=== PATIENT | female | born 1955 | race Caucasian/White ===

== ENCOUNTER 2024-08-24 21:35 | Inpatient (IN) | payer MEDICARE, OTHER, SELFPAY ==
[2024-08-24] VITALS (8 sets, daily range): BP systolic 107–187; BP diastolic 54–86; BMI 24.6
--- NOTE | 2024-08-24 14:44 | ED.GENMED ---
ED Provider Triage
<Chantel Phipps BULK [employer] HANDLER - Last Filed: 08/24/24 14:49>
-
Patient seen by provider in Triage?: Seen in Triage
Attestation: A medical screening examination has been initiated by a qualified medical provider. Based on the assessment performed at this time, it has been determined that an emergent medical condition may exist and the patient has been informed
that further medical evaluation and possible additional diagnostic testing may be needed.
HPI: 69 yo female with COPD on home O2 3L NC. presents for trouble breathing. 'I feel like I have a 60 lb dog sitting on me, I have pressure all around my rib area where my lungs are.' Denies chest pain. Has had similar exacerbations in the past.
Denies fever/chills. Denies n/v/c. Has chronic diarrhea
Finished [employer] 4 days ago. Takes 10 mg Prednisone daily. Has been taking nebulizations at home.
GENERAL: Alert , in no apparent distress
EYE: No visual abnormalities.
NECK: Trachea midline
ENT: No visible abnormalities.
LUNGS: No acute respiratory distress
NEUROLOGICAL: Alert and oriented
SKIN: Skin intact. No visible changes.
MUSCULOSKELETAL: Moving extremities normally
PSYCH: Normal and appropriate interaction.
This is a medical evaluation conducted in person to initiate diagnostic evaluation and provide initial therapeutics. Please see further documentation by the treating clinician.
History of Present Illness
<Chantel Phipps B[employer] HANDLER - Last Filed: 08/24/24 14:49>
General
Chief Complaint: Breathing Problem
Time Seen by Provider: 08/24/24 19:02
<Mathew Grewal DO - Last Filed: 08/24/24 22:06>
History of Present Illness
History of Present Illness:
TIME OF INITIAL ENCOUNTER: 7:05 PM
HPI: Patient has history of COPD who presents with shortness of breath. She uses home oxygen at 2 to 3 L/min. She was seen by Dr. Pulliam and had already tried a steroid taper. She has a tight band around her chest indicating that she feels that
this is her COPD acting up. She feels that she needs to be admitted to the hospital�she has not been admitted in nearly 3 years. She continues to drink alcohol on a daily basis and drinks alcohol to help her relax and sleep
EXAM:
GENERAL: Patient no significant distress
HEENT: Moist oral mucosa, nasal cannula in place
CARDIOVASCULAR: No murmurs, tachycardic heart rate, regular rhythm, No chest wall tenderness
PULMONARY: Minimal if any respiratory distress, breath sounds are markedly decreased bilaterally with wheeze
ABDOMEN: Soft with no peritoneal signs, no tenderness
NEUROLOGIC: Excellent strength all extremities, no coordination deficits
PSYCHIATRIC: Appropriate mental status, normal insight and judgement
EXTREMITIES: Nontender, no edema, moves all extremities equally
SKIN: No rash, no lesions
NUMBER AND COMPLEXITY OF PROBLEMS ADDRESSED AT THE ENCOUNTER
� Chronic conditions affecting care: COPD, alcohol use, had TAVR March 2020
� Acute Exacerbation and/or Progression of Chronic Illness: This is an acute problem exacerbation of a chronic
� Differential Diagnosis includes: COPD exacerbation, alcohol withdrawal, CHF unlikely as there is no lower extremity edema
AMOUNT AND/OR COMPLEXITY OF DATA TO BE REVIEWED AND ANALYZED
� I performed an independent evaluation of and my interpretation is:
EKG: Sinus 116, normal axis, old septal Q waves
CT:
X-rays: I personally viewed chest x-ray and see no definite acute abnormality however radiologist did comment on the possibility of a small perihilar infiltrate
Laboratory Studies: CBC unremarkable, bicarb is 38 otherwise chemistries relatively unremarkable, troponin 0.013
Other:
� Review of other/old records: I reviewed records, the patient was admitted here with a COPD exacerbation in September 2021
� Clinical information was obtained by an independent historian: None needed
� Prescriptions/Medications Considered but not given:
� Further testing considered but not performed:
RISK OF COMPLICATIONS AND/OR MORBIDITY OR MORTALITY OF PATIENT MANAGEMENT
� Social determinants of health affecting care: Lives at home
� Discussion with other providers: Dr. West for admission at 7:55 PM
� Escalation of care including admission/observation vs risk of discharge considered: Although patient sats are normal and she does not appear to be in any respiratory distress, she states that she is failing outpatient
management already with trying oral steroids and feels she needs to be kept in the hospital. She has not been admitted here nearly 2 years for COPD. I have ordered DuoNebs and IV steroids.
ANY OTHER UPDATES:
7:55 PM: Repeat heart rate 130. She states that she did not drink any alcohol today�heart rate elevation likely due to a combination of anxiety, alcohol withdrawal, albuterol use, and steroid effects. However she declines any anxiolytics/benzos.
Past History
<Chantel Phipps, B[employer] HANDLER - Last Filed: 08/24/24 14:49>
Past History
ED Past Medical History: COPD; Negative HTN, Hypercholesterolemia or NIDDM
ED Past Surgical History: None
Social History
Tobacco: Smoker
Alcohol: Daily (2-3 glasses of wine)
Drug: None
Personal:
Living: with family
Phy Exam
<Mathew Grewal DO - Last Filed: 08/24/24 22:06>
Physical Exam
Physical Exam:
See HPI
Scores
<Mathew Grewal DO - Last Filed: 08/24/24 22:06>
Heart Failure Risk
Heart Failure Risk Score: Not Applicable
Course
<Chantel Phipps, B[employer] HANDLER - Last Filed: 08/24/24 14:49>
Orders/Labs/Results
Orders:
Orders
08/24/24 14:32
ECG [Electrocardiogram (*1)] Urgent
Reason for Study: Chest Pain
EKG- Treatment ONCE
08/24/24 14:44
CXR2 [CR Chest - 2 Views ] Urgent
Comment:
Reason For Exam: sob hx copd
08/24/24 14:58
Complete Blood Count/With Diff Urgent
Comprehensive Metabolic Panel Urgent
NT-proBNP Urgent
Comment: ADDON
Troponin I Urgent
08/24/24 19:05
Add On- LAB Urgent
Tests Added?: bnp
08/24/24 19:10
Ipratropium/Albuterol Sulfate [Duoneb] 3 ml INH R NOW STA
08/24/24 19:13
Ipratropium/Albuterol Sulfate [Duoneb] 3 ml INH R NOW STA
MethylPREDNISolone PF [Solu-Medrol Pf] 125 mg IV NOW STA
08/24/24 20:56
Magnesium Sulfate 2 Gram/50 ml [Magnesium Sulfate] 2 gram in 50 ml IV NOW
08/24/24 20:57
Admit/Transfer Patient As Directed
Co-Sign Provider:
Level of Care: Inpatient admission
Assign to:: Medical/Surgical
Physician / Group: Hospitalist
Diagnosis: COPD exacerbation
Reason for Hospitalization: copd exacerbation
Expected length of stay greater than two midnights?: Yes
ELOS- Estimated Length of Stay in days: 2
I certify the patient meets the requirements for IP care: Yes
PRN Pain Medication Management As Directed
May give lesser potent ordered pain med per pt: Yes
preference::
Protocol:: Medication orders for pain may be administered in a
manner that supports deferring to patient preference
when the pt is:
- Requesting an ordered lesser potent pain medication.
Least to most potent pain medications are defined
as: acetaminophen < NSAID < tramadol < opioids
(morphine, oxycodone, hydromorphone).
- Requesting a lesser dose of the same medication IF
ORDERED.
- Requesting a less intrusive route of administration
if both routes are prescribed by the provider (PO <
IV).
08/24/24 20:58
Code Status As Directed
Resuscitation Status: Full Code
08/24/24 21:00
Flush (0.9% Sodium Chloride) [Flush (Nss)] See Dose Instructions IV PER PROTOCOL
08/24/24 21:01
COVID-19 Antigen Stat
Source: Nasal Swab
Abnormal Lab Results
08/24/24
14:58
RBC 4.17 L 10^6/uL
(4.20-5.40)
MCHC 31.1 L g/dL
(33.0-37.0)
RDW 14.8 H %
(11.5-14.5)
Abs Immat Gran (auto) 0.1 H 10^3/uL
(0-0.05)
Absolute Neuts (auto) 8.3 H 10^3/uL
(1.4-6.5)
Absolute Lymphs (auto) 0.7 L 10^3/uL
(1.2-3.4)
Neutrophils % 87.5 H %
(42.2-75.2)
Lymphocytes % 7.4 L %
(20.5-51.1)
Chloride 95 L mmol/L
(98-107)
Carbon Dioxide 38 H mmol/L
(22-30)
Creatinine 0.5 L mg/dL
(0.6-1.0)
Glucose 135 H mg/dl
(70-99)
08/24/24 14:58
08/24/24 14:58
Vital Signs
Initial and Last Documented VS:
Initial Vital Signs
Temp Pulse Resp BP Pulse Ox
36.7 C 116 18 150/86 92
08/24/24 14:39 08/24/24 14:39 08/24/24 14:39 08/24/24 14:39 08/24/24 14:39
Last Documented Vital Signs
Temp Pulse Resp BP Pulse Ox
36.7 C 103 24 150/71 100
08/24/24 14:39 08/24/24 21:15 08/24/24 21:15 08/24/24 21:00 08/24/24 21:15
<Mathew Grewal, DO - Last Filed: 08/24/24 22:06>
Orders/Labs/Results
Orders:
Orders
08/24/24 14:32
ECG [Electrocardiogram (*1)] Urgent
Reason for Study: Chest Pain
EKG- Treatment ONCE
08/24/24 14:44
CXR2 [CR Chest - 2 Views ] Urgent
Comment:
Reason For Exam: sob hx copd
08/24/24 14:58
Complete Blood Count/With Diff Urgent
Comprehensive Metabolic Panel Urgent
NT-proBNP Urgent
Comment: ADDON
Troponin I Urgent
08/24/24 19:05
Add On- LAB Urgent
Tests Added?: bnp
08/24/24 19:10
Ipratropium/Albuterol Sulfate [Duoneb] 3 ml INH R NOW STA
08/24/24 19:13
Ipratropium/Albuterol Sulfate [Duoneb] 3 ml INH R NOW STA
MethylPREDNISolone PF [Solu-Medrol Pf] 125 mg IV NOW STA
08/24/24 20:56
Magnesium Sulfate 2 Gram/50 ml [Magnesium Sulfate] 2 gram in 50 ml IV NOW
08/24/24 20:57
Admit/Transfer Patient As Directed
Co-Sign Provider:
Level of Care: Inpatient admission
Assign to:: Medical/Surgical
Physician / Group: Hospitalist
Diagnosis: COPD exacerbation
Reason for Hospitalization: copd exacerbation
Expected length of stay greater than two midnights?: Yes
ELOS- Estimated Length of Stay in days: 2
I certify the patient meets the requirements for IP care: Yes
PRN Pain Medication Management As Directed
May give lesser potent ordered pain med per pt: Yes
preference::
Protocol:: Medication orders for pain may be administered in a
manner that supports deferring to patient preference
when the pt is:
- Requesting an ordered lesser potent pain medication.
Least to most potent pain medications are defined
as: acetaminophen < NSAID < tramadol < opioids
(morphine, oxycodone, hydromorphone).
- Requesting a lesser dose of the same medication IF
ORDERED.
- Requesting a less intrusive route of administration
if both routes are prescribed by the provider (PO <
IV).
08/24/24 20:58
Code Status As Directed
Resuscitation Status: Full Code
08/24/24 21:00
Flush (0.9% Sodium Chloride) [Flush (Nss)] See Dose Instructions IV PER PROTOCOL
08/24/24 21:01
COVID-19 Antigen Stat
Source: Nasal Swab
Abnormal Lab Results
08/24/24
14:58
RBC 4.17 L 10^6/uL
(4.20-5.40)
MCHC 31.1 L g/dL
(33.0-37.0)
RDW 14.8 H %
(11.5-14.5)
Abs Immat Gran (auto) 0.1 H 10^3/uL
(0-0.05)
Absolute Neuts (auto) 8.3 H 10^3/uL
(1.4-6.5)
Absolute Lymphs (auto) 0.7 L 10^3/uL
(1.2-3.4)
Neutrophils % 87.5 H %
(42.2-75.2)
Lymphocytes % 7.4 L %
(20.5-51.1)
Chloride 95 L mmol/L
(98-107)
Carbon Dioxide 38 H mmol/L
(22-30)
Creatinine 0.5 L mg/dL
(0.6-1.0)
Glucose 135 H mg/dl
(70-99)
08/24/24 14:58
08/24/24 14:58
Vital Signs
Initial and Last Documented VS:
Initial Vital Signs
Temp Pulse Resp BP Pulse Ox
36.7 C 116 18 150/86 92
08/24/24 14:39 08/24/24 14:39 08/24/24 14:39 08/24/24 14:39 08/24/24 14:39
Last Documented Vital Signs
Temp Pulse Resp BP Pulse Ox
36.7 C 103 24 150/71 100
08/24/24 14:39 08/24/24 21:15 08/24/24 21:15 08/24/24 21:00 08/24/24 21:15
<Mathew Grewal DO - Last Filed: 08/24/24 22:06>
*Critical Care Note
Total Time (30-74mins, 75-104mins- exclusive of procedures): Not Applicable
ED Attending Note
<Chantel Phipps [employer] HAND[employer]ER - Last Filed: 08/24/24 14:49>
-
Portions of this chart may have been created with voice recognition software.� Occasional wrong word or��sound alike� substitutions may have occurred due to the inherent limitations of voice recognition software.
Discharge Plan
Departure
Patient Disposition: Admit
Date of Disposition: 08/24/24
Time of Disposition: 19:54
Presentation/result/management discussed w/ accepting MD/DO: Hospitalist
Discharge Problem:
COPD exacerbation
Interventions
Interventions:
*Risk Screen - Suicide Last Done: 08/24/24 14:39
*General Assessment Last Done: 08/24/24 20:17
*Neglect/Abuse Screening Last Done: 08/24/24 14:39
ED- Fall Risk Assessment Last Done: 08/24/24 21:56
*ED COVID-19 Vaccine History Last Done: 08/24/24 20:17
*Nursing Disposition Last Done: 08/24/24 21:56
ED- Cardiac Assessment Last Done: 08/24/24 18:08
ED- Pulmonary Assessment Last Done: 08/24/24 18:08
Discharge Date and Time
Discharge Date/Time: 08/24/24 21:57
[2024-08-24 15:25] LABS: % Basophils 0.3 % (0-2); % Eosinophils 0.2 % (0-6); % Immature Granulocytes 0.5 % (0-0.5); % Lymphocytes 7.4 % (20.5-51.1); % Monocytes 4.1 % (1.7-9.3); % Neutrophils 87.5 % (42.2-75.2); Absolute Immature Granulocytes 0.1 10^3/uL (0-0.05); Absolute Lymphocytes 0.7 10^3/uL (1.2-3.4); Absolute Monocytes 0.4 10^3/uL (0.1-0.6); Absolute Neutrophils 8.3 10^3/uL (1.4-6.5); Hematocrit 38.6 % (37.0-47.0); Mean Corp Hgb Conc. 31.1 g/dL (33.0-37.0); Mean Corpuscular Hgb 28.8 pg (27.0-31.0); Mean Corpuscular Volume 92.6 fL (81.0-99.0); Mean Platelet Volume 8.6 fL (7.4-10.4); Nucleated Red Blood Cells % 0 %; Platelet Count 262 10^3/uL (130-400); Red Blood Cell Count 4.17 10^6/uL (4.20-5.40); Red Cell Dist. Width 14.8 % (11.5-14.5); White Blood Cell Count 9.5 10^3/uL (4.8-10.8)
[2024-08-24 15:36] LABS: ALT (SGPT) 25 U/L (0-35); AST (SGOT) 31 U/L (14-36); Albumin 4.6 g/dl (3.5-5.0); Alkaline Phosphatase 63 U/L (38-126); Blood Urea Nitrogen 14 mg/dl (7-17); Calcium 9.1 mg/dl (8.4-10.2); Carbon Dioxide 38 mmol/L (22-30); Chloride 95 mmol/L (98-107); Glucose 135 mg/dl (70-99); Potassium 4.3 mmol/L (3.5-5.1); Sodium 142 mmol/L (135-145); Total Bilirubin 0.6 mg/dl (0.2-1.3); Total Protein 7.3 g/dl (6.3-8.2); eGFR > 60.00
[2024-08-24 15:47] LABS: Troponin I 0.013 ng/ml
[2024-08-24] MEDS: DUONEB 3 ML INH ×2 (19:19)
[2024-08-24] MEDS: SOLU-MEDROL PF 125 MG IV (19:19)
[2024-08-24 19:45] LABS: NT-proBNP 349 pg/ml
--- NOTE | 2024-08-24 20:39 | HPS.HSE ---
Family Physician
-
Family Physician: NOT KNOW UNKNOWN - PT DOES
Chief Complaint
-
Shortness of breath
History of Present Illness
This is a 69-year-old female with past medical history of COPD on 2 to 3 L home O2, asthma, aortic stenosis status post TAVR, alcohol abuse, presenting to the emergency department with unrelenting shortness of breath after outpatient treatment for
COPD.
Patient reported that she started steroid taper initially 2 weeks ago for COPD exacerbation. She initially improved but then got worse again. She did a second steroid taper this time with [employer]. After completing the [employer] patient said she felt
better but then within a day or 2 she started having shortness of breath again. She is that she described chest tightening in a bandlike manner, dyspnea on exertion, wheezing and shortness of breath at rest. She denies any chest pain. She denies
any palpitations lightheadedness or dizziness. She denies any lower extremity swelling. She reports compliance with her medications. She has no known sick contacts and no recent travels.
In the ED she was satting 100% on 2 L, blood pressure 155/85 heart rate 116. She had no leukocytosis with normal hemoglobin and platelet counts. BUN and creatinine were within normal limits bicarb was 38 electrolytes otherwise normal. Chest x-ray
was clear. ECG shows sinus tachycardia at rate of [address] or T wave changes. Troponin was negative. BNP was within normal limits.
Medical History
Past Medical History
Past Medical History: Reports Asthma, COPD (2 - 3 L O2) and Valvular Disease (As S/p TAVR)
Past Surgical History: Reports Cardiac (TAVR)
Social History
Tobacco: Former Smoker
Alcohol: Daily
Drug: None
Personal:
Living: With Family
Employment: Retired
Family History
Family History: Not pertinent
Allergies / Home Medications
Allergies reflects when Allergies were last updated in [facility]
Home Medications with original date entered in [facility]
Allergy/Medication List:
Allergies
Allergy/AdvReac Type Severity Reaction Status Date / Time
doxylamine Allergy Shortness Verified 08/24/24 14:43
of Breath
Penicillins Allergy Anaphylaxis Verified 08/24/24 14:43
Home Medications
fluticasone furoate 200 mcg-vilanterol 25 mcg/dose inhalation powder (Breo Ellipta) 1 puff inhalation R DAILY Lung/breathing issues 10/02/21
albuterol sulfate 90 mcg/actuation aerosol inhaler 2 puff inhalation R Q6HPRN PRN sob/wheezing 08/24/24
cetirizine 10 mg tablet (Zyrtec) 10 mg PO DAILY 08/24/24
ipratropium 0.5 mg-albuterol 3 mg (2.5 mg base)/3 mL nebulization soln 3 ml inhalation R BID 08/24/24
prednisone 10 mg tablet 10 mg PO DAILY 08/24/24
Review of Systems
-
History Source: Patient
Constitutional: Reports No Symptoms
EENT: Reports No Symptoms
Respiratory: Reports Trouble Breathing
Cardiac: Reports No Symptoms
Abdomen/GI: Reports No Symptoms
: Reports No Symptoms
Musculoskeletal: Reports No Symptoms
Skin: Reports No Symptoms
Neurological: Reports No Symptoms
Endocrine: Reports No Symptoms
Psych: Reports No Symptoms
Physical Exam
Vital Signs
Vital Signs
Temp Pulse Resp BP Pulse Ox
98.0 F 116 18 155/85 100
08/24/24 14:39 08/24/24 20:15 08/24/24 20:15 08/24/24 20:00 08/24/24 20:15
Physical Exam
General: Well Developed, Well Nourished and Respiratory Distress
HEENT: NormoCephalic, Anicteric, Moist mucous membranes and Atraumatic
Respiratory: Wheezes
Cardiac: S1/S2, Regular Rhythm and Tachycardia
Breast: Deferred by me
GI: Soft, Non Tender, Non Distended and Normal Bowel Sounds
Rectal: Deferred by Provider
Genito-urinary: Deferred by me
Musculoskeletal: No Clubbing, No Cyanosis and No Edema
Skin: Warm
Neuro: AO x 3
Hematologic/Lymphatic: No Lymphadenopathy
Psych: Calm
Laboratory Results
-
08/24/24 14:58
08/24/24 14:58
Laboratory Results
Total Bilirubin 0.6 mg/dl (0.2-1.3) 08/24/24 14:58
AST 31 U/L (14-36) 08/24/24 14:58
ALT 25 U/L (0-35) 08/24/24 14:58
Alkaline Phosphatase 63 U/L (38-126) 08/24/24 14:58
Troponin I 0.013 ng/ml 08/24/24 14:58
Data Reviewed
-
Diagnostic Radiology: Image Personally Visualized and interpreted
Medical Tests (Nuc Med, Echo, EKG etc): Image Personally Visualized and interpreted
Lab Data: Labs Reviewed by me
Old Records: Reviewed
Impression/Plan
-
IMPRESSION:
Patient with history of asthma and COPD on 2 to 3 L with significant emphysema who is dependent on chronic 10 mg of prednisone at home comes into the emergency department with ongoing wheezing and shortness of breath consistent with asthma/COPD
exacerbation. She is satting 100% on 2 L at rest. She however has significant bilateral coarse wheezes. She has no new cough or production of sputum. Chest x-ray is clear. ECG with sinus tachycardia but no ischemia and BNP is normal and she has
no signs of volume overload on x-ray or exam.
PLAN:
1. COPD - Patient with possible asthma/ COPD exacerbation. Has emphysema, on 2 L home O2 and has retention on serum chemistry. She still remains tight and wheezing on my examination.
- admit to med/surg
- magsulftate now
- duonebs BID with prn albuterol q 3 hours
- continue ICS/LABA
- iv solumedrol 40 q 12
- check covid 19
- no productive cough, hold abx for now
- consider pulm consult (patient of Dr. Benítez)
DVT PPX - lovenox sq
Code status - Full code.
[2024-08-24] MEDS: MAGNESIUM SULFATE 50 IV (21:03)
[2024-08-24 21:20] LABS: COVID-19 Antigen Negative (Negative)
--- NOTE | 2024-08-24 22:15 | PTCARENOTE ---
Pt arrived onto floor @2215. Pt AAOx3 and able to walk into room with minimal assistance. Pt with no complaints of pain at this time. Pt oriented to room and call abreu; will continue to monitor.
[2024-08-25 07:00] VITALS: BP 121/76
[2024-08-25 07:31] LABS: Blood Urea Nitrogen 11 mg/dl (7-17); Calcium 8.7 mg/dl (8.4-10.2); Carbon Dioxide 33 mmol/L (22-30); Chloride 96 mmol/L (98-107); Estimated Creatinine Clearance 66 ml/min; Glucose 162 mg/dl (70-99); Potassium 4.8 mmol/L (3.5-5.1); Sodium 138 mmol/L (135-145); eGFR > 60.00
[2024-08-25] MEDS: ZYRTEC 10 MG PO (07:57)
[2024-08-25] MEDS: SOLU-MEDROL PF 40 MG IV ×2 (07:57→20:03)
[2024-08-25] MEDS: SYMBICORT 160/4.5 MCG INHALER 2 PUFF INH ×2 (08:20→20:28)
[2024-08-25] MEDS: VENTOLIN NEBULES 1.25 MG INH ×4 (08:20→20:28)
--- NOTE | 2024-08-25 13:36 | W.PN.HOSP.TC ---
Today's Communication/Plan
-
Cont IV steroids
PPI
Abd Aortic US
Assessment / Plan
Assessment / Plan
Physical Exam
General: Well Developed, Well Nourished and Respiratory Distress
HEENT: NormoCephalic, Anicteric, Moist mucous membranes and Atraumatic
Respiratory: minimal b/l wheezing
Cardiac: S1/S2, Regular Rhythm and Tachycardia
Breast: Deferred by me
GI: Soft, Non Tender, Non Distended and Normal Bowel Sounds
Rectal: Deferred by Provider
Genito-urinary: Deferred by me
Musculoskeletal: No Clubbing, No Cyanosis and No Edema
Skin: Warm
Neuro: AO x 3
Hematologic/Lymphatic: No Lymphadenopathy
Psych: Calm
Patient with history of asthma and COPD on 2 to 3 L with significant emphysema who is dependent on chronic 10 mg of prednisone at home comes into the emergency department with ongoing wheezing and shortness of breath consistent with asthma/COPD
exacerbation. She is satting 100% on 2 L at rest. She however has significant bilateral coarse wheezes. She has no new cough or production of sputum. Chest x-ray is clear. ECG with sinus tachycardia but no ischemia and BNP is normal and she has
no signs of volume overload on x-ray or exam.
PLAN:
1. COPD exacerbation.
- admit to med/surg
- duonebs BID with prn albuterol q 3 hours
- continue ICS/LABA
- Cont iv Solumedrol 40 q 12h
- covid 19 negative
- no productive cough, although ?infiltrate on CXR
-F/u Procalcitonin
- Empiric azithro
- If worsening: Pulm consult (patient of Dr. Benítez)
#Abd pain
-non distended
-Possible GERD
-start PPI while on steroids
-RUQ sono dopplers - eval for AAA
DVT PPX - lovenox sq
Code status - Full code.
Anticipated Discharge: 24 - 48 hours
Subjective/Interval History
-
Date of Service: August 25, 2024
Moderate improvement of wheezing/respiratory status
Objective Data
-
Labs:
Laboratory Results
08/25/24
05:46
Sodium 138
Potassium 4.8
Chloride 96 L
Carbon Dioxide 33 H
BUN 11
Creatinine 0.4 L
Glucose 162 H
Calcium 8.7
Vital Signs:
Vital Signs
Temp Pulse Resp BP Pulse Ox
98.0 F 101 18 121/76 96
08/25/24 07:00 08/25/24 11:41 08/25/24 11:41 08/25/24 07:00 08/25/24 11:41
Review of Systems
-
History Source: Patient
All other systems: Not reviewed unless documented
Data Reviewed
-
Diagnostic Radiology: Image personally visualized and interpreted and Report Reviewed by me
Labs: Labs Reviewed by me
[2024-08-25] MEDS: NSS (PRESERVATIVE FREE) 10 ML IV (14:24)
[2024-08-25] MEDS: PROTONIX IV 40 MG IV (14:25)
[2024-08-25] MEDS: ZITHROMAX INFUSION 250 IV (14:25)
[2024-08-25 14:36] LABS: % Basophils 0.1 % (0-2); % Immature Granulocytes 0.4 % (0-0.5); % Lymphocytes 2.3 % (20.5-51.1); % Monocytes 2.9 % (1.7-9.3); % Neutrophils 94.3 % (42.2-75.2); Absolute Lymphocytes 0.2 10^3/uL (1.2-3.4); Absolute Monocytes 0.3 10^3/uL (0.1-0.6); Absolute Neutrophils 8.8 10^3/uL (1.4-6.5); Hematocrit 36.8 % (37.0-47.0); Hemoglobin 11.5 g/dL (12.0-16.0); Mean Corp Hgb Conc. 31.3 g/dL (33.0-37.0); Mean Corpuscular Volume 92.7 fL (81.0-99.0); Mean Platelet Volume 8.6 fL (7.4-10.4); Nucleated Red Blood Cells % 0 %; Platelet Count 269 10^3/uL (130-400); Red Blood Cell Count 3.97 10^6/uL (4.20-5.40); Red Cell Dist. Width 14.6 % (11.5-14.5); White Blood Cell Count 9.3 10^3/uL (4.8-10.8)
[2024-08-25 14:51] LABS: AST (SGOT) 31 U/L (14-36); Albumin 4.5 g/dl (3.5-5.0); Alkaline Phosphatase 58 U/L (38-126); Blood Urea Nitrogen 17 mg/dl (7-17); Calcium 9.1 mg/dl (8.4-10.2); Carbon Dioxide 32 mmol/L (22-30); Chloride 94 mmol/L (98-107); Estimated Creatinine Clearance 49 ml/min; Glucose 315 mg/dl (70-99); Lipase 72 U/L (23-300); Potassium 4.6 mmol/L (3.5-5.1); Sodium 136 mmol/L (135-145); Total Bilirubin 0.3 mg/dl (0.2-1.3); Total Protein 6.9 g/dl (6.3-8.2); eGFR > 60.00
[2024-08-25 15:00] VITALS: BP 146/81
[2024-08-25 15:17] LABS: Procalcitonin < 0.05 ng/ml (0.0-0.25)
[2024-08-25 15:23] LABS: Urine Albumin Negative (Neg - Trace); Urine Bilirubin Negative (Negative); Urine Character Clear (Clear); Urine Color Straw; Urine Glucose 3+ (Negative); Urine Ketone Trace (Negative); Urine Leukocyte Negative (Negative); Urine Nitrite Negative (Negative); Urine Occult Blood 1+ (Negative); Urine Specific Gravity 1.015 (<1.030); Urine Urobilinogen Negative (Neg - 1+)
--- NOTE | 2024-08-25 15:24 | CM ---
Initial assessment completed with pt at bedside.
Pt is a 69yr old admitted with COPD exacerbation.
Pt lives with her in a split level home that has 5 steps to enter into the home where the living room and kitchen are, with 5 additional steps to the bed/bath, and laundry in the basement.
At baseline, pt is indep. with mobility and ADLs; not driving. Pt does have home O2 that she uses 2-3L and a RW that she does not use.
Pt has no VN/SNF hx
PCP; Trenton Lock
Pharm; [facility]
PLAN; dc to home with no needs
[2024-08-25 15:37] LABS: ALT (SGPT) 34 U/L (0-35)
[2024-08-25 15:42] VITALS: BMI 24.6
[2024-08-25 15:42] LABS: Urine Squamous Cell 0-2 /LPF (Few)
[2024-08-25 15:43] LABS: Urine Red Blood Cell 0-2 /HPF (0-2); Urine White Cell 0-2 /HPF (0-5)
[2024-08-25 19:55] VITALS: BP 146/81
[2024-08-25] MEDS: TYLENOL 650 MG PO (21:53)
[2024-08-25 23:30] VITALS: BP 133/59
[2024-08-26 06:54] LABS: Hematocrit 35.3 % (37.0-47.0); Hemoglobin 10.9 g/dL (12.0-16.0); Mean Corp Hgb Conc. 30.9 g/dL (33.0-37.0); Mean Corpuscular Hgb 29.1 pg (27.0-31.0); Mean Corpuscular Volume 94.1 fL (81.0-99.0); Mean Platelet Volume 8.6 fL (7.4-10.4); Platelet Count 244 10^3/uL (130-400); Red Blood Cell Count 3.75 10^6/uL (4.20-5.40); Red Cell Dist. Width 14.6 % (11.5-14.5); White Blood Cell Count 12.4 10^3/uL (4.8-10.8)
[2024-08-26 07:09] LABS: Blood Urea Nitrogen 18 mg/dl (7-17); Carbon Dioxide 35 mmol/L (22-30); Chloride 97 mmol/L (98-107); Estimated Creatinine Clearance 66 ml/min; Glucose 150 mg/dl (70-99); Potassium 4.4 mmol/L (3.5-5.1); Sodium 137 mmol/L (135-145); eGFR > 60.00
[2024-08-26 07:35] VITALS: BP 155/87
[2024-08-26] MEDS: PROTONIX 40 MG PO (08:00)
[2024-08-26] MEDS: SOLU-MEDROL PF 40 MG IV ×2 (08:00→20:37)
[2024-08-26] MEDS: ZYRTEC 10 MG PO (08:02)
[2024-08-26] MEDS: SYMBICORT 160/4.5 MCG INHALER 2 PUFF INH ×2 (08:30→19:39)
[2024-08-26] MEDS: VENTOLIN NEBULES 1.25 MG INH ×4 (08:30→19:39)
[2024-08-26] MEDS: ZITHROMAX INFUSION 250 IV (14:07)
--- NOTE | 2024-08-26 14:30 | W.PN.HOSP.TC ---
Today's Communication/Plan
-
Cont IV steroids
PPI
Abd Aortic US
Assessment / Plan
Assessment / Plan
Physical Exam
General: Well Developed, Well Nourished and Respiratory Distress
HEENT: NormoCephalic, Anicteric, Moist mucous membranes and Atraumatic
Respiratory: minimal b/l wheezing
Cardiac: S1/S2, Regular Rhythm and Tachycardia
Breast: Deferred by me
GI: Soft, Non Tender, Non Distended and Normal Bowel Sounds
Rectal: Deferred by Provider
Genito-urinary: Deferred by me
Musculoskeletal: No Clubbing, No Cyanosis and No Edema
Skin: Warm
Neuro: AO x 3
Hematologic/Lymphatic: No Lymphadenopathy
Psych: Calm
Patient with history of asthma and COPD on 2 to 3 L with significant emphysema who is dependent on chronic 10 mg of prednisone at home comes into the emergency department with ongoing wheezing and shortness of breath consistent with asthma/COPD
exacerbation. She is satting 100% on 2 L at rest. She however has significant bilateral coarse wheezes. She has no new cough or production of sputum. Chest x-ray is clear. ECG with sinus tachycardia but no ischemia and BNP is normal and she has
no signs of volume overload on x-ray or exam.
PLAN:
1. COPD exacerbation.
- admit to med/surg
- duonebs BID with prn albuterol q 3 hours
- continue ICS/LABA
- Cont iv Solumedrol 40 q 12h
- covid 19 negative
- no productive cough, although ?infiltrate on CXR
-F/u Procalcitonin
- Empiric azithro
- If worsening: Pulm consult (patient of Dr. Benítez)
#Abd pain
-non distended
-Possible GERD
-start PPI while on steroids
-RUQ sono dopplers - eval for AAA
DVT PPX - lovenox sq
Code status - Full code.
Anticipated Discharge: Within 24 hours
Subjective/Interval History
-
Date of Service: August 26, 2024
No acute events
Objective Data
-
Labs:
Laboratory Results
08/26/24
06:33
WBC 12.4 H
Hgb 10.9 L
Hct 35.3 L
Plt Count 244
Sodium 137
Potassium 4.4
Chloride 97 L
Carbon Dioxide 35 H
BUN 18 H
Creatinine 0.5 L
Glucose 150 H
Calcium 9.0
Vital Signs:
Vital Signs
Temp Pulse Resp BP Pulse Ox
97.9 F 88 18 155/87 98
08/26/24 07:35 08/26/24 12:07 08/26/24 12:07 08/26/24 07:35 08/26/24 12:07
Review of Systems
-
History Source: Patient
All other systems: Not reviewed unless documented
Data Reviewed
-
Diagnostic Radiology: Image personally visualized and interpreted and Report Reviewed by me
Labs: Labs Reviewed by me
[2024-08-26 16:50] VITALS: BP 139/71
[2024-08-27] VITALS: BP 150/76
[2024-08-27 07:19] LABS: Hematocrit 35.7 % (37.0-47.0); Hemoglobin 10.8 g/dL (12.0-16.0); Mean Corp Hgb Conc. 30.3 g/dL (33.0-37.0); Mean Corpuscular Hgb 28.8 pg (27.0-31.0); Mean Corpuscular Volume 95.2 fL (81.0-99.0); Mean Platelet Volume 8.6 fL (7.4-10.4); Platelet Count 245 10^3/uL (130-400); Red Blood Cell Count 3.75 10^6/uL (4.20-5.40); Red Cell Dist. Width 14.7 % (11.5-14.5); White Blood Cell Count 10.7 10^3/uL (4.8-10.8)
[2024-08-27 07:23] VITALS: BP 141/84
[2024-08-27] MEDS: VENTOLIN NEBULES 1.25 MG INH ×2 (07:23→11:33)
[2024-08-27] MEDS: SYMBICORT 160/4.5 MCG INHALER 2 PUFF INH (07:23)
[2024-08-27 07:52] LABS: Blood Urea Nitrogen 20 mg/dl (7-17); Calcium 8.8 mg/dl (8.4-10.2); Carbon Dioxide 37 mmol/L (22-30); Chloride 97 mmol/L (98-107); Estimated Creatinine Clearance 66 ml/min; Glucose 136 mg/dl (70-99); Potassium 4.4 mmol/L (3.5-5.1); Sodium 138 mmol/L (135-145); eGFR > 60.00
[2024-08-27] MEDS: PROTONIX 40 MG PO (09:21)
[2024-08-27] MEDS: ZYRTEC 10 MG PO (09:22)
[2024-08-27] MEDS: SOLU-MEDROL PF 40 MG IV (09:22)
--- NOTE | 2024-08-27 10:52 | W.PN.HOSP.TC ---
Addendum entered and electronically signed by Crow Soler DO 08/28/24 14:50:
Acute on chronic hypoxic respiratory failure -due to acute COPD exacerbation
Original Note:
Today's Communication/Plan
-
Follow-up abdominal ultrasound
Discharge
Assessment / Plan
Assessment / Plan
Physical Exam
General: Well Developed, Well Nourished and Respiratory Distress
HEENT: NormoCephalic, Anicteric, Moist mucous membranes and Atraumatic
Respiratory: minimal b/l wheezing
Cardiac: S1/S2, Regular Rhythm and Tachycardia
Breast: Deferred by me
GI: Soft, Non Tender, Non Distended and Normal Bowel Sounds
Rectal: Deferred by Provider
Genito-urinary: Deferred by me
Musculoskeletal: No Clubbing, No Cyanosis and No Edema
Skin: Warm
Neuro: AO x 3
Hematologic/Lymphatic: No Lymphadenopathy
Psych: Calm
Acute COPD exacerbation.
- admit to med/surg
- duonebs BID with prn albuterol q 3 hours
- continue ICS/LABA
- Cont iv Solumedrol 40 q 12h
- covid 19 negative
- no productive cough, although ?infiltrate on CXR
-F/u Procalcitonin
- Empiric azithro
- If worsening: Pulm consult (patient of Dr. Benítez)
#Abd pain -not true pain. Suspect tightness related to COPD exacerbation.
-non distended
-Possible GERD
-start PPI while on steroids
-RUQ sono dopplers - eval for AAA
DVT PPX - lovenox sq
Code status - Full code.
Dispo -medically stable for discharge with outpatient follow-up recommended with PCP and pulmonary. Patient agreeable to go home.
35 minutes spent in discharge process.
Anticipated Discharge: Today
Subjective/Interval History
-
Date of Service: August 27, 2024
Patient seen and examined. No new complaints.
Objective Data
-
Labs:
Laboratory Results
08/27/24
06:37
WBC 10.7
Hgb 10.8 L
Hct 35.7 L
Plt Count 245
Sodium 138
Potassium 4.4
Chloride 97 L
Carbon Dioxide 37 H
BUN 20 H
Creatinine 0.5 L
Glucose 136 H
Calcium 8.8
Vital Signs:
Vital Signs
Temp Pulse Resp BP Pulse Ox
98.3 F 87 18 141/84 97
08/27/24 07:23 08/27/24 08:10 08/27/24 08:10 08/27/24 07:23 08/27/24 08:10
I&O
08/26/24 08/27/24 08/28/24
06:59 06:59 06:59
Intake Total 970 / 970
Balance 970 / 970
Review of Systems
-
History Source: Patient
All other systems: Reviewed and negative
--- NOTE | 2024-08-27 10:56 | W.DS.TRANS ---
DC Summary - Travel Ticketing Reviewer
-
Discharge Instructions:
Discharge Diagnosis/Procedures COPD exacerbation
Diet Regular
Activity As tolerated
Driving Restrictions As prior to admission
Bathing Restrictions None
Instructions:
Stand-Alone Forms:
Changes to Home Medications: No
Discharge Medications:
DC Medications w/original date entered in [employer]
fluticasone furoate 200 mcg-vilanterol 25 mcg/dose inhalation powder (Breo Ellipta) 1 puff inhalation R DAILY Lung/breathing issues 10/02/21
cetirizine 10 mg tablet (Zyrtec) 10 mg PO DAILY 08/24/24
nicotine (polacrilex) 2 mg buccal lozenge 2 mg PRN cravings 08/26/24
albuterol sulfate 90 mcg/actuation aerosol inhaler 2 puff inhalation R Q6HPRN PRN sob/wheezing #8.5 grams 08/27/24
ipratropium 0.5 mg-albuterol 3 mg (2.5 mg base)/3 mL nebulization soln 3 ml inhalation R BID #90 mL 08/27/24
prednisone 10 mg tablet 10 mg PO DAILY #40 tabs 08/27/24
Home Medication Changes
Pending Results: No
[2024-08-27] MEDS: ZITHROMAX 500 MG PO (11:13)
--- NOTE | 2024-08-27 12:42 | CM ---
Chart reviewed and plan is to home no needs.
Plan; Home no needs when stable.
[2024-08-27 13:15] VITALS: BP 181/82
--- NOTE | 2024-08-28 10:53 | PN.CDI ---
CDI
- -
CDI:
Physician Documentation Request
Admit Date: 08/24/24 21:35
Dear Doctor Ryder,
Patient admitted for COPD exacerbation.
ER Physician Documentation: '69 yo female with COPD on home O2 3L NC'
Clarify which of the following accurately represents the patient's respiratory status:
Chronic hypoxic respiratory failure
Hypoxia
Other
Use of terms such as suspected, likely, concern for, or probable (associated with a specific diagnosis that is being evaluated, monitored, or treated as if it exists) are acceptable and can be coded in the inpatient setting, when documented at the
time of discharge.
Thank you,
Emilie Lamb RN, BSN
CDI Specialist
Available via [place] text
Please use your independent medical judgment in providing your response.
== END 2024-08-27 15:31 | disposition home or self-care (01) | DRG 190 ==
LOC: 4 WEST ACU 21:35
PROVIDERS: Emergency Medicine; Internal Medicine; ADMITTING PHYSICIAN Internal Medicine; ATTENDING PHYSICIAN Hospitalist; EMERGENCY PHYSICIAN Emergency Medicine
DX: J44.1 Chronic obstructive pulmonary disease with (acute) exacerbation (principal); J96.21 Acute and chronic respiratory failure with hypoxia; J45.901 Unspecified asthma with (acute) exacerbation; J43.9 Emphysema, unspecified; F17.200 Nicotine dependence, unspecified, uncomplicated; Z99.81 Dependence on supplemental oxygen; Z95.2 Presence of prosthetic heart valve; Z88.0 Allergy status to penicillin; Z79.51 Long term (current) use of inhaled steroids; Z79.52 Long term (current) use of systemic steroids; Z11.52 Encounter for screening for COVID-19
CPT/HCPCS: 71046; 76770; 80048; 80053; 81003; 81015; 83690; 83880; 84145; 84484; 85025; 85027; 87811; 93005; 94640; 96365; 96375; 99285

== ENCOUNTER 2024-09-14 22:13 | Inpatient (IN) | payer MEDICARE, OTHER, SELFPAY ==
[2024-09-14 16:02] VITALS: BP 158/71
[2024-09-14] MEDS: DUONEB 3 ML INH ×2 (16:13→21:48)
[2024-09-14 16:39] LABS: % Basophils 0.3 % (0-2); % Immature Granulocytes 0.3 % (0-0.5); % Lymphocytes 8.7 % (20.5-51.1); % Neutrophils 85.7 % (42.2-75.2); Absolute Lymphocytes 0.8 10^3/uL (1.2-3.4); Absolute Monocytes 0.5 10^3/uL (0.1-0.6); Absolute Neutrophils 7.7 10^3/uL (1.4-6.5); Hematocrit 36.1 % (37.0-47.0); Hemoglobin 11.4 g/dL (12.0-16.0); Mean Corp Hgb Conc. 31.6 g/dL (33.0-37.0); Mean Corpuscular Hgb 29.7 pg (27.0-31.0); Mean Platelet Volume 8.7 fL (7.4-10.4); Nucleated Red Blood Cells % 0 %; Platelet Count 288 10^3/uL (130-400); Red Blood Cell Count 3.84 10^6/uL (4.20-5.40); Red Cell Dist. Width 14.7 % (11.5-14.5)
[2024-09-14 16:55] LABS: ALT (SGPT) 42 U/L (0-35); AST (SGOT) 49 U/L (14-36); Albumin 4.2 g/dl (3.5-5.0); Alkaline Phosphatase 56 U/L (38-126); Blood Urea Nitrogen 13 mg/dl (7-17); Calcium 9.1 mg/dl (8.4-10.2); Chloride 88 mmol/L (98-107); Glucose 188 mg/dl (70-99); Sodium 136 mmol/L (135-145); Total Bilirubin 0.4 mg/dl (0.2-1.3); Total Protein 6.7 g/dl (6.3-8.2); eGFR > 60.00
[2024-09-14 17:07] LABS: Carbon Dioxide 39 mmol/L (22-30)
[2024-09-14 17:11] LABS: COVID-19 Antigen Negative (Negative)
[2024-09-14 20:15] VITALS: BP 123/71; BMI 25.7
[2024-09-14 21:00] VITALS: BP 163/82
--- NOTE | 2024-09-14 21:06 | ED.GENMED ---
History of Present Illness
General
Chief Complaint: Breathing Problem
Source: patient
Exam Limitations: none
Time Seen by Provider: 09/14/24 20:41
Nursing documentation reviewed up to this point in time: agreed with
History of Present Illness
History of Present Illness:
69-year-old female presents to the emergency department due to shortness of breath for the past 3 days, productive cough, subjective fever. She was recently hospitalized for COPD exacerbation.
Past History
Past History
ED Past Medical History: COPD; Negative HTN, Hypercholesterolemia or NIDDM
ED Past Surgical History: Cardiac (TAVR) and Gynecological (Tubal ligation, vaginal cyst)
Social History
Tobacco: Former smoker
Alcohol: Daily (2-3 glasses of wine)
Drug: None
Personal:
Living: with family
Review of Systems
Review of Systems
Allergies reviewed?: Yes
All Other Systems: Not applicable
Constitutional: Reports fever
EENT: Reports no symptoms
Respiratory: Reports cough and trouble breathing
Cardiac: Reports no symptoms
ABD/GI: Reports no symptoms
: Reports no symptoms
Musculoskeletal: Reports no symptoms
Skin: Reports no symptoms
Neurological: Reports no symptoms
Endocrine: Reports no symptoms
Hematologic/Lymphatic: Reports no symptoms
Psychiatric: Reports no symptoms
Phy Exam
Physical Exam
Physical Exam:
Physical Exam
General: Moderate respiratory distress, afebrile
Neck: supple. no meningeal signs. normal posterior pharynx
Heart: s1/s2 tachycardia, no murmur. equal radial
pulses.
HEENT: Pupils equal round reactive to light, EOMI
Lungs: Moderate respiratory distress. Decreased and wheezing bilaterally
Abdomen: normal bowel sounds. not tender. no CVAT
Neuro: alert and oriented. no focal neurological deficits cranial nerves II through XII intact
Skin: no rash
Psychiatric: well kept. interactive and cooperative
Extremities: no edema. no calf tenderness. negative homans. good distal pulses
Scores
Heart Failure Risk
Heart Failure Risk Score: Not Applicable
Course
Orders/Labs/Results
Orders:
Orders
09/14/24 16:04
ECG [Electrocardiogram (*1)] Urgent
Reason for Study: Shortness of Breath
CR Chest - 2 Views Urgent
Comment:
Reason For Exam: shortness of breath
09/14/24 16:05
EKG- Treatment ONCE
09/14/24 16:10
Ipratropium/Albuterol Sulfate [Duoneb] 3 ml .ROUTE .STK-MED ONE
09/14/24 16:12
Ipratropium/Albuterol Sulfate [Duoneb] 3 ml INH R NOW ONE
09/14/24 16:20
COVID-19 Antigen Urgent
Source: Nasal Swab
Complete Blood Count/With Diff Urgent
Comprehensive Metabolic Panel Urgent
Influenza A+B Rapid Molecular Urgent
ROB Source: Nasal Swab
Specimen Description:
09/14/24 21:00
Dexamethasone Sod Phosphate [Decadron] 10 mg IV NOW STA
Ipratropium/Albuterol Sulfate [Duoneb] 3 ml INH R NOW STA
09/14/24 21:05
Aztreonam [Azactam] 2,000 mg IV NOW STA
LevoFLOXacin 750 MG/150 ML [Levaquin] 750 mg in 150 ml IV NOW
Vancomycin [Vancocin] 1,500 mg 0.9% Sodium Chloride 500 ml [Nss] 500 ml IV NOW
Abnormal Lab Results
09/14/24
16:20
RBC 3.84 L 10^6/uL
(4.20-5.40)
Hgb 11.4 L g/dL
(12.0-16.0)
Hct 36.1 L %
(37.0-47.0)
MCHC 31.6 L g/dL
(33.0-37.0)
RDW 14.7 H %
(11.5-14.5)
Absolute Neuts (auto) 7.7 H 10^3/uL
(1.4-6.5)
Absolute Lymphs (auto) 0.8 L 10^3/uL
(1.2-3.4)
Neutrophils % 85.7 H %
(42.2-75.2)
Lymphocytes % 8.7 L %
(20.5-51.1)
Chloride 88 L mmol/L
(98-107)
Carbon Dioxide 39 H mmol/L
(22-30)
Creatinine 0.5 L mg/dL
(0.6-1.0)
Glucose 188 H mg/dl
(70-99)
AST 49 H U/L
(14-36)
ALT 42 H U/L
(0-35)
09/14/24 16:20
09/14/24 16:20
Vital Signs
Initial and Last Documented VS:
Initial Vital Signs
Temp Pulse Resp BP Pulse Ox
98.0 F 123 20 158/71 94
09/14/24 16:02 09/14/24 16:02 09/14/24 16:02 09/14/24 16:02 09/14/24 16:02
Last Documented Vital Signs
Temp Pulse Resp BP Pulse Ox
98.2 F 100 26 123/71 99
09/14/24 20:15 09/14/24 20:15 09/14/24 20:15 09/14/24 20:15 09/14/24 20:15
MDM/Problems Addressed
Differential Diagnosis Includes:
Pneumonia, COPD exacerbation
MDM/Problems Addressed:
69-year-old female with pneumonia and COPD exacerbation. Admit to hospitalist. IV Decadron, Azactam, Levaquin, vancomycin, DuoNeb ordered. Admit to hospitalist.
Chronic conditions affecting care: COPD
Acute Exacerbation and/or Progression of Chronic Illness: COPD
*Radiology
Radiology exam reviewed: radiology read reviewed (Chest x-ray shows bilateral pneumonia)
*Pulse Oximetry
Patient hypoxic: no
*EKG
Interpreted by ED Provider?: Yes
EKG Intrepretation Date: 09/14/24
EKG Intrepretation Time: 16:32
Interpretation: abnormal
Comparison EKG: no changes
Heart Rate: 121
Rate: tachycardiac
Rhythm: sinus tachycardia
[place]: normal axis
Interval: normal interval
QRS Pattern: normal QRS
Ischemia: no ischemia
*Burr Filer Interpretation
Rate: tachycardiac
Interpretation: abnormal
Heart Rate: 120
Rhythm: sinus tachycardia
*Critical Care Note
Total Time (30-74mins, 75-104mins- exclusive of procedures): Not Applicable
Data Reviewed
Review of Other/Old Records Reveals: Discharge Summary (recent hospitalization for copd, d/c 08/27/24)
Source: records
Further Testing Considered But Not Given:
ct chest not indicated
Patient Management
Social determinants of health affecting care: Living situation and Strong social support
Discussion with other providers: Hospitalist
Escalation/DeEscalation of care consider admission/obs:
admit indicated
ED Attending Note
-
Portions of this chart may have been created with voice recognition software.� Occasional wrong word or��sound alike� substitutions may have occurred due to the inherent limitations of voice recognition software.
Discharge Plan
Departure
Patient Disposition: Admit
Date of Disposition: 09/14/24
Time of Disposition: 21:13
Admit to: Telemetry
Presentation/result/management discussed w/ accepting MD/DO: Hospitalist
Patient with high blood pressure during this ER visit?: Yes
Condition: Fair
Discharge Problem:
COPD exacerbation, Pneumonia
Prescriptions:
No Action
fluticasone furoate-vilanterol [Breo Ellipta] 1 EACH blister with device
1 puff inhalation R DAILY
cetirizine [Zyrtec] 10 mg Tablet
10 mg PO DAILY
nicotine (polacrilex) 2 mg Lozenge
2 mg PRN (Reason: cravings)
prednisone 10 MG tablet
10 mg PO DAILY Qty: 40 0RF
Rx Instructions:
4 tabs daily x4 days, 3 tabs daily x4 days, 2 tabs daily x4 days, 1 tab daily x4 days.
ipratropium-albuterol 0.5 mg-3 mg(2.5 mg base)/3 mL Solution For Nebulization
3 ml INHALATION R BID Qty: 90 0RF
albuterol sulfate 90 mcg/actuation Hfa Aerosol Inhaler
2 puff INHALATION R Q6HPRN PRN (Reason: sob/wheezing) Qty: 8.5 0RF
Referrals:
Trenton Lock DO [Family Provider] -
Interventions
Interventions:
*Risk Screen - Suicide Last Done: 09/14/24 16:02
*General Assessment Last Done: 09/14/24 20:17
*Neglect/Abuse Screening Last Done: 09/14/24 20:17
*ED COVID-19 Vaccine History Last Done: 09/14/24 20:17
ED- Cardiac Assessment Last Done: 09/14/24 20:19
ED- Pulmonary Assessment Last Done: 09/14/24 20:19
Discharge Date and Time
Print Language: GREEK
--- NOTE | 2024-09-14 21:17 | HPS.HSE ---
Addendum entered and electronically signed by Mahesh Simental DO 09/14/24 22:54:
Patient seen and examined independently. Agree with findings and plan as set forth by RADHA Leong.
Patient is a 69y F with PMH significant for COPD and recent admission for the same who presents to ED complaining of cough and shortness of breath x 3 days. Patient was recently hospitalized from 08/24 - 08/27 for COPD exacerbation. She was
discharged on a prednisone taper which she completed one week ago. Patient states that she felt very well at discharge and until 09/12 when her symptoms returned. Patient has had progressive symptoms and presented to Urgent Care today and was
referred to the ED for evaluation.
Ass:
COPD with Acute Exacerbation
Bronchitis / Atypical Pneumonia
Sepsis secondary to the above
Aortic Stenosis s/p TAVR
Plan:
Admit for further evaluation and treatment.
Restart IV steroids for now.
Nebs, O2 support, etc.
Abx with doxycycline for now.
Follow for clinical improvement.
Pulmonary evaluation given recurrent symptoms.
Patient followed by Dr. Julio as an outpatient.
Original Note:
Family Physician
-
Family Physician: Trenton Lock
Chief Complaint
-
increased shortness of breath
History of Present Illness
Patient is a 69-year-old female with past medical history significant for COPD who presented for [place] ED for evaluation after recommendation by Urgent Care. Patient stated that she started with increased shortness of breath and productive
cough on the morning of the . Yesterday she attempt to make a doctors apt and was unsuccessful r/t physician being on vacation for the holidays. She went to urgent care this morning where they were unable to complete an x-ray r/t no network technician
and doctor recommended ED evaluation based on his assessment. Patient stated that she feels she had a low grade temp at home the past two days but did not actually use thermometer. Denies any nausea, vomiting, chest pain, constipation, diarrhea or
urinary symptoms.
Medical History
Past Medical History
Past Medical History: Reports Other
Additional Past Medical History:
COPD
Asthmatic bronchitis
Valvular stenosis s/p TAVR
Past Surgical History: Reports Other
Additional Past Surgical History:
TAVR
Tubal ligation
vaginal cyst
Social History
Tobacco: Former Smoker (1.5 - 2 packs per day for many years (does not specify time), quit in 2019)
Alcohol: Daily (2 glasses of wine daily)
Drug: None
Personal:
Living: With Family
Employment: Retired
Family History
Family History: Not pertinent
Allergies / Home Medications
Allergies reflects when Allergies were last updated in [employer].
Home Medications with original date entered in [employer]
Allergy/Medication List:
Allergies
Allergy/AdvReac Type Severity Reaction Status Date / Time
doxylamine Allergy Shortness Verified 09/14/24 16:03
of Breath
Penicillins Allergy Anaphylaxis Verified 09/14/24 16:03
Home Medications
cetirizine 10 mg tablet (Zyrtec) 10 mg PO DAILY 08/24/24
nicotine (polacrilex) 2 mg buccal lozenge 2 mg buccal DAILYPRN PRN cravings 08/26/24
albuterol sulfate 90 mcg/actuation aerosol inhaler 2 puff inhalation R Q6HPRN PRN sob/wheezing #8.5 grams 08/27/24
prednisone 10 mg tablet 10 mg PO DAILY #40 tabs 08/27/24
aspirin 81 mg tablet,delayed release 81 mg PO DAILY 09/14/24
fluticasone furoate 200 mcg-vilanterol 25 mcg/dose inhalation powder (Breo Ellipta) 1 inh inhalation R DAILY 09/14/24
ipratropium 0.5 mg-albuterol 3 mg (2.5 mg base)/3 mL nebulization soln 3 ml inhalation R QIDPRN PRN sob 09/14/24
Review of Systems
-
History Source: Patient
Constitutional: Reports Fever
EENT: Reports No Symptoms
Respiratory: Reports Cough and Other (shortness of breath)
Cardiac: Reports No Symptoms
Abdomen/GI: Reports No Symptoms
: Reports No Symptoms
Musculoskeletal: Reports No Symptoms
Skin: Reports No Symptoms
Neurological: Reports No Symptoms
Endocrine: Reports No Symptoms
Hematologic/Lymphatic: Reports No Symptoms
Psych: Reports No Symptoms
Physical Exam
Vital Signs
Vital Signs
Temp Pulse Resp BP Pulse Ox
98.2 F 100 26 123/71 99
09/14/24 20:15 09/14/24 20:15 09/14/24 20:15 09/14/24 20:15 09/14/24 20:15
Physical Exam
General: Well Developed, Well Nourished, No Apparent Distress, Comfortable and Conversant
HEENT: NormoCephalic, Moist mucous membranes, Atraumatic, [place] Conjunctivae, Nose Appears Normal and Ears Appear Normal
Respiratory: Wheezes and Decreased Breath Sounds
Cardiac: S1/S2 and Regular Rhythm; No Murmur, Rub or Gallop
Breast: Deferred by me
GI: Soft, Non Tender, Non Distended and Normal Bowel Sounds; No Organomegaly
Rectal: Deferred by Provider
Genito-urinary: Deferred by me
Musculoskeletal: No Clubbing, No Cyanosis and No Edema
Skin: Warm and IV/Catheter Site; No Rash
Neuro: Awake, AO x 3 and Nonfocal/grossly intact
Hematologic/Lymphatic: No Lymphadenopathy
Psych: Calm and Intact Judgment/Insight
Laboratory Results
-
09/14/24 16:20
09/14/24 16:20
Laboratory Results
Total Bilirubin 0.4 mg/dl (0.2-1.3) 09/14/24 16:20
AST 49 U/L (14-36) H 09/14/24 16:20
ALT 42 U/L (0-35) H 09/14/24 16:20
Alkaline Phosphatase 56 U/L (38-126) 09/14/24 16:20
Data Reviewed
-
Diagnostic Radiology: Report Reviewed by me (CXR: Emphysematous changes with bibasilar infiltrates, favored to pneumonia and possibly viral/atypical.)
Medical Tests (Nuc Med, Echo, EKG etc): Report Reviewed by me (EKG: SINUS TACHYCARDIA POSSIBLE LEFT ATRIAL ENLARGEMENT SEPTAL INFARCT (CITED ON OR BEFORE 02-OCT-2021))
Lab Data: Labs Reviewed by me
Impression/Plan
-
IMPRESSION/PLAN:
#SIRS 2/2 Pneumonia
CXR: Emphysematous changes with bibasilar infiltrates, favored to pneumonia and possibly viral/atypical.
Influenza and Covid: Negative
- Admit to telemetry
- blood culture pending
- PO Doxycycline
- IV Decadron
- DuoNebs
- supportive care
#COPD
#Asthmatic bronchitis
home O2 3L
- continue cetirizine and Breo
#Valvular stenosis s/p TAVR
- continue aspirin
Code Status: Full Code
DVT Prophylaxis: Lovenox Sq
[2024-09-14] MEDS: DECADRON 10 MG IV (21:50)
[2024-09-14 21:52] VITALS: BP 158/65
[2024-09-14 21:52] LABS: Lactic Acid 1.4 mmol/L (0.7-2.0)
[2024-09-14] MEDS: AZACTAM 2000 MG IV (21:59)
[2024-09-14] MEDS: LEVAQUIN 150 IV (22:11)
--- NOTE | 2024-09-14 23:29 | PTCARENOTE ---
Patient received from ED with at bedside. Pt. admitted to floor per protocol. Strong odor of cigarettes noticed by this nurse after pt. was admitted to the room. Pt. denied nicotine use and said that she 'had quit in 2019.' Pt. oriented to
room. Will continue to monitor; plan of care ongoing.
[2024-09-14 23:33] VITALS: BMI 24.7
[2024-09-15] VITALS (9 sets, daily range): BP systolic 143–179; BP diastolic 65–91; PULSE 132; BMI 24.7
[2024-09-15] MEDS: DUONEB 3 ML INH ×3 (00:02→12:04)
[2024-09-15] MEDS: DECADRON 4 MG IV ×3 (05:33→21:51)
[2024-09-15] MEDS: NON-FORMULARY ITEM INH (07:52)
[2024-09-15 08:15] LABS: Hematocrit 37.4 % (37.0-47.0); Hemoglobin 11.3 g/dL (12.0-16.0); Mean Corp Hgb Conc. 30.2 g/dL (33.0-37.0); Mean Corpuscular Hgb 29.1 pg (27.0-31.0); Mean Corpuscular Volume 96.4 fL (81.0-99.0); Mean Platelet Volume 8.9 fL (7.4-10.4); Platelet Count 289 10^3/uL (130-400); Red Blood Cell Count 3.88 10^6/uL (4.20-5.40); Red Cell Dist. Width 14.7 % (11.5-14.5); White Blood Cell Count 5.2 10^3/uL (4.8-10.8)
[2024-09-15 08:33] LABS: Blood Urea Nitrogen 13 mg/dl (7-17); Calcium 8.9 mg/dl (8.4-10.2); Carbon Dioxide 37 mmol/L (22-30); Chloride 90 mmol/L (98-107); Estimated Creatinine Clearance 63 ml/min; Glucose 181 mg/dl (70-99); Potassium 4.3 mmol/L (3.5-5.1); Sodium 135 mmol/L (135-145); eGFR > 60.00
[2024-09-15] MEDS: ASPIR LOW (ENTERIC COATED) 81 MG PO (09:33)
[2024-09-15] MEDS: ZYRTEC 10 MG PO (09:33)
--- NOTE | 2024-09-15 11:53 | W.PN.HOSP.TC ---
Today's Communication/Plan
-
Decadron
Nebs
F/U Procal
Assessment / Plan
Assessment / Plan
#SIRS 2/2 Pneumonia
CXR: Emphysematous changes with bibasilar infiltrates, favored to pneumonia and possibly viral/atypical.
Influenza and Covid: Negative
- Admit to telemetry
- blood culture pending
- PO Doxycycline - patient refused
- F/U procal
- IV Decadron
- DuoNebs
- supportive care
#COPD
#Asthmatic bronchitis
home O2 3L
- continue cetirizine and Breo
#Valvular stenosis s/p TAVR
- continue aspirin
Code Status: Full Code
DVT Prophylaxis: Lovenox Sq
Anticipated Discharge: 24 - 48 hours
Subjective/Interval History
-
Date of Service: September 15, 2024
feels slightly improved
refused antibiotics state they give her diarrhea
Objective Data
-
Labs:
Laboratory Results
09/15/24
07:40
WBC 5.2
Hgb 11.3 L
Hct 37.4
Plt Count 289
Sodium 135
Potassium 4.3
Chloride 90 L
Carbon Dioxide 37 H
BUN 13
Creatinine 0.5 L
Glucose 181 H
Calcium 8.9
Vital Signs:
Vital Signs
Temp Pulse Resp BP Pulse Ox
98.6 F 101 20 176/81 98
09/15/24 08:50 09/15/24 08:50 09/15/24 08:50 09/15/24 08:50 09/15/24 08:50
I&O
09/14/24 09/15/24 09/16/24
06:59 06:59 06:59
Intake Total 480 / 480
Balance 480 / 480
Review of Systems
-
History Source: Patient
All other systems: Reviewed and negative
Physical Exam
-
General: No Apparent Distress
HEENT: PERRLA
Respiratory: Wheezes (mild end expiratory )
Cardiac: Regular Rhythm and S1/S2
GI: Soft and Nontender
Musculoskeletal: No Edema
Skin: Warm and Dry; Negative Rash
Neuro: AO x 3
Psych: Calm
Data Reviewed
-
Diagnostic Radiology: Report Reviewed by me
Labs: Labs Reviewed by me
[2024-09-15] MEDS: NON-FORMULARY ITEM 1 UNIT INH (12:23)
[2024-09-15] MEDS: MUCINEX 600 MG PO ×2 (13:05→21:50)
--- NOTE | 2024-09-15 13:20 | PTCARENOTE ---
Dr. Vuong made aware pt. SB/P has been in the 170s today and pt. Stach on tele up to 130s at rest in bed. Dr. Vuong adjusted neb treatments. Will continue to monitor pt.
[2024-09-15 13:24] LABS: Procalcitonin < 0.05 ng/ml (0.0-0.25)
--- NOTE | 2024-09-15 14:33 | CM ---
CM following re: discharge planning.
Reviewed pt's chart, met with pt.
Pt is a 69 year old female, admitted with primary dx of PNA.
Pt reports she lives with split level house, ambulates with a walker, has home O2, family helps as needed. Pt expressed her desire to return back home at discharge.
PCP: Trenton Lock
Pharmacy: [facility].
D/C plan: home with anticipated no needs. family to transport at discharge.
CM will follow with discharge plan updates as hospitalization progresses
[2024-09-15] MEDS: ATROVENT NEBULES 0.5 MG INH ×2 (14:53→19:47)
[2024-09-15] MEDS: XOPENEX 0.63 MG INHALANT SOLUTION INH ×2 (14:53→19:47)
--- NOTE | 2024-09-15 20:21 | PTCARENOTE ---
Addendum entered by Lanny Ramirez 09/16/24 02:33:
Once patient settled HR currently 80-100s.
Original Note:
Pts HR 100-130s BP 159/81 EKG completed. Ryan LANDSCAPING SUPERVISOR notified. HR sustaining 120s- pt stating due to albuterol treatments. Pt anxious at this time. Ryan LANDSCAPING SUPERVISOR aware.
[2024-09-16] VITALS (7 sets, daily range): BP systolic 136–184; BP diastolic 73–92
[2024-09-16] MEDS: DECADRON 4 MG IV ×3 (05:04→22:17)
[2024-09-16] MEDS: XOPENEX 0.63 MG INHALANT SOLUTION INH ×4 (06:31→19:20)
[2024-09-16] MEDS: NON-FORMULARY ITEM 1 UNIT INH (06:36)
[2024-09-16 06:43] LABS: Hematocrit 34.3 % (37.0-47.0); Hemoglobin 10.8 g/dL (12.0-16.0); Mean Corp Hgb Conc. 31.5 g/dL (33.0-37.0); Mean Corpuscular Hgb 29.3 pg (27.0-31.0); Mean Corpuscular Volume 93.2 fL (81.0-99.0); Mean Platelet Volume 8.6 fL (7.4-10.4); Platelet Count 282 10^3/uL (130-400); Red Blood Cell Count 3.68 10^6/uL (4.20-5.40); Red Cell Dist. Width 14.7 % (11.5-14.5)
[2024-09-16 07:09] LABS: Blood Urea Nitrogen 17 mg/dl (7-17); Carbon Dioxide 38 mmol/L (22-30); Chloride 93 mmol/L (98-107); Estimated Creatinine Clearance 63 ml/min; Glucose 153 mg/dl (70-99); Potassium 4.1 mmol/L (3.5-5.1); Sodium 137 mmol/L (135-145); eGFR > 60.00
[2024-09-16] MEDS: ATROVENT NEBULES 0.5 MG INH ×3 (07:58→19:20)
[2024-09-16] MEDS: MUCINEX 600 MG PO ×2 (08:52→19:59)
[2024-09-16] MEDS: ASPIR LOW (ENTERIC COATED) 81 MG PO (08:52)
[2024-09-16] MEDS: ZYRTEC 10 MG PO (08:52)
--- NOTE | 2024-09-16 11:22 | W.PN.HOSP.TC ---
Today's Communication/Plan
-
see plan
Assessment / Plan
Assessment / Plan
CXR: Emphysematous changes with bibasilar infiltrates, favored to pneumonia and possibly viral/atypical.
Influenza and Covid: Negative
Acute COPD Exacerbation
- flu and influenza negative. Patient was exposed to grandkids with URI prior to symptoms
- procal negative; patient reluctant to take abx - will hold off
- continue IV Decadron - patient slowly improving
-changed albuterol to Levalbuterol given tachycardia - patient hoping this can be prescribed at [facility], CM consult for levin in place
- close follow up with Dr. Julio at discharge
- MOHEL inhaler
#Valvular stenosis s/p TAVR
- continue aspirin
Code Status: Full Code
DVT Prophylaxis: Lovenox Sq
Anticipated Discharge: 24 - 48 hours
Subjective/Interval History
-
Date of Service: September 16, 2024
feeling better
doesn't want to leave until wheezing resolved
no fevers/chills
Objective Data
-
Labs:
Laboratory Results
09/16/24
06:07
WBC 10.0
Hgb 10.8 L
Hct 34.3 L
Plt Count 282
Sodium 137
Potassium 4.1
Chloride 93 L
Carbon Dioxide 38 H
BUN 17
Creatinine 0.6
Glucose 153 H
Calcium 9.0
Vital Signs:
Vital Signs
Temp Pulse Resp BP Pulse Ox
98.4 F 99 18 166/92 97
09/16/24 08:48 09/16/24 08:48 09/16/24 08:48 09/16/24 08:48 09/16/24 08:48
I&O
09/15/24 09/16/24 09/17/24
06:59 06:59 06:59
Intake Total 1200 / 1200
Balance 1200 / 1200
Review of Systems
-
History Source: Patient
All other systems: Reviewed and negative
Physical Exam
-
General: No Apparent Distress
HEENT: PERRLA
Respiratory: Wheezes (mild end expiratory )
Cardiac: Regular Rhythm and S1/S2
GI: Soft and Nontender
Musculoskeletal: No Edema
Skin: Warm and Dry; Negative Rash
Neuro: AO x 3
Psych: Calm
Data Reviewed
-
Diagnostic Radiology: Report Reviewed by me
Labs: Labs Reviewed by me
[2024-09-16] MEDS: NON-FORMULARY ITEM INH (19:19)
[2024-09-17 00:21] VITALS: BP 142/62
--- NOTE | 2024-09-17 01:40 | PTCARENOTE ---
After receiving respiratory treatments pts HR 110-130s going up to 140s at times, sustaining in 120s. pt stating the breathing treatment is causing her to shake, sweat and 'feels amped up'. BP 136/76- house FRONT END WEB DESIGNER notified. Encouraged pt to relax in
bed- pt not relaxing. Walking around the room, speaking with her roommate. Again pt encouraged to relax. Once settled in HR 90-100s.
--- NOTE | 2024-09-17 01:46 | PTCARENOTE ---
Pt refusing 0300 VS.
[2024-09-17] MEDS: DECADRON 4 MG IV ×2 (05:34→14:10)
[2024-09-17] MEDS: ATROVENT NEBULES INH ×3 (07:54→19:50)
[2024-09-17] MEDS: NON-FORMULARY ITEM 1 UNIT INH (07:54)
[2024-09-17] MEDS: XOPENEX 0.63 MG INHALANT SOLUTION INH ×3 (07:54→19:47)
[2024-09-17 08:20] VITALS: BP 123/53
[2024-09-17] MEDS: MUCINEX 600 MG PO ×2 (09:19→19:46)
[2024-09-17] MEDS: ZYRTEC 10 MG PO (09:19)
[2024-09-17] MEDS: ASPIR LOW (ENTERIC COATED) 81 MG PO (09:19)
[2024-09-17 10:22] VITALS: PULSE 97
[2024-09-17 11:55] VITALS: BP 109/71
--- NOTE | 2024-09-17 13:45 | CM ---
Chart reviewed. PT/OT recommending HH at d/c
Discussed w/ pt bedside, pt states she does not need HH at this time. Pt declined this service
Pt states she is still wheezing and BP is high. Pt confirmed that she uses 3L O2 at home. Currently at [facility] in hospital
Plan: Home; no needs when stable
[2024-09-17] MEDS: FLUSH (NSS) 1 FLUSH IV (14:10)
--- NOTE | 2024-09-17 14:59 | W.PN.HOSP.TC ---
Today's Communication/Plan
-
wean decadron
Assessment / Plan
Assessment / Plan
CXR: Emphysematous changes with bibasilar infiltrates, favored to pneumonia and possibly viral/atypical.
Influenza and Covid: Negative
Acute COPD Exacerbation
- flu and influenza negative. Patient was exposed to grandkids with URI prior to symptoms
- procal negative; patient reluctant to take abx - will hold off as no clear indication
- continue IV Decadron - patient slowly improving- wean to decadron 4mg q12h
-changed albuterol to Levalbuterol given tachycardia -on MDI at home
- close follow up with Dr. Julio at discharge
- [employer] inhaler
#Valvular stenosis s/p TAVR
- continue aspirin
Code Status: Full Code
DVT Prophylaxis: Lovenox Sq
Anticipated Discharge: Within 24 hours
Subjective/Interval History
-
Date of Service: September 17, 2024
no acute events
Objective Data
-
Vital Signs:
Vital Signs
Temp Pulse Resp BP Pulse Ox
98.1 F 84 18 109/71 95
09/17/24 11:55 09/17/24 14:55 09/17/24 14:55 09/17/24 11:55 09/17/24 14:55
I&O
09/16/24 09/17/24 09/18/24
06:59 06:59 06:59
Intake Total 1200 / 1200
Balance 1200 / 1200
Review of Systems
-
History Source: Patient
All other systems: Not reviewed unless documented
Physical Exam
-
General: No Apparent Distress
HEENT: PERRLA
Respiratory: Wheezes (mild end expiratory )
Cardiac: Regular Rhythm and S1/S2
GI: Soft and Nontender
Musculoskeletal: No Edema
Skin: Warm and Dry; Negative Rash
Neuro: AO x 3
Psych: Calm
Data Reviewed
-
Diagnostic Radiology: Report Reviewed by me
Labs: Labs Reviewed by me
[2024-09-17 16:21] VITALS: BP 163/86
--- NOTE | 2024-09-17 16:22 | PTCARENOTE ---
Pt AAO x3, irritable at times. CHOWDHURY well, OOB in chair/BSC ;ambulates to BR with minimal assistance, no c/o weakness/dizziness. VSS. Telemetry:NSR. maintained on nc 3 lpm- pulse ox 96%, pt with (+) JESSICA/tachypnea; (+) occ dry cough. Abd soft,
rounded, linda PO well. Void son BSC/in BR without difficulty. Resting in bed at present, no c/o. Will continue to monitor.
[2024-09-17] MEDS: NON-FORMULARY ITEM INH (19:59)
[2024-09-17 20:30] VITALS: BP 155/79
[2024-09-17] MEDS: TYLENOL 650 MG PO (20:36)
[2024-09-18 00:39] VITALS: BP 154/74
[2024-09-18 04:06] VITALS: BP 133/70
--- NOTE | 2024-09-18 07:20 | PN.CDI ---
CDI
- -
CDI:
Physician Documentation Request
Admit Date: 09/14/24 22:13
Dear Doctor Mendy,
Please review the following and provide your response in the progress notes.
Clinical Indicators:
- On admission: HR 90-100s, RR 20s
- 09/14 CXR 'Emphysematous changes with bibasilar infiltrates, favored to pneumonia and possibly viral/atypical'
- 09/14 H&P indicates sepsis secondary to bronchitis/atypical pneumonia
- 09/15 PN 'SIRS 2/2 Pneumonia'
- 09/17 PN 'Acute COPD Exacerbation...exposed to grandkids with URI prior to symptoms'
Please clarify which most accurately describes the patient:
Sepsis due to atypical/viral pneumonia
SIRS due to a non-infectious source - Acute COPD exacerbation
Other (please specify)
Use of terms such as suspected, likely, concern for, or probable (associated with a specific diagnosis that is being evaluated, monitored, or treated as if it exists) are acceptable and can be coded in the inpatient setting, when documented at the
time of discharge.
Thank you,
Jonathan Simmons RN
CDI Specialist
Please use your independent medical judgment in providing your response.
--- NOTE | 2024-09-18 07:26 | PN.CDI ---
CDI
- -
CDI:
Physician Documentation Request
Admit Date: 09/14/24 22:13
Dear Doctor Mendy,
Please review the following and provide your response in the progress notes.
Clinical Indicators:
- per Case management, patient has home O2, uses 3L at home
- per Respiratory therapist, patient wears 3L O2 at home at baseline
- Documented VS indicate 3L O2 with SpO2 > 94%
Please clarify a diagnosis associated with continuous use of home O2
Chronic hypoxic respiratory failure requiring continuous use home O2
Hypoxia requiring intermittent home O2 use
Other (please specify)
Use of terms such as suspected, likely, concern for, or probable (associated with a specific diagnosis that is being evaluated, monitored, or treated as if it exists) are acceptable and can be coded in the inpatient setting, when documented at the
time of discharge.
Thank you,
Jonathan Simmons RN
CDI Specialist
Please use your independent medical judgment in providing your response.
[2024-09-18] MEDS: ATROVENT NEBULES INH ×2 (08:02→13:25)
[2024-09-18] MEDS: XOPENEX 0.63 MG INHALANT SOLUTION INH ×2 (08:03→13:25)
[2024-09-18 08:23] VITALS: BP 148/73
[2024-09-18] MEDS: ZYRTEC 10 MG PO (08:53)
[2024-09-18] MEDS: MUCINEX 600 MG PO (08:53)
[2024-09-18] MEDS: ASPIR LOW (ENTERIC COATED) 81 MG PO (08:53)
[2024-09-18] MEDS: DECADRON 4 MG IV (08:54)
[2024-09-18 09:44] LABS: Hematocrit 37.2 % (37.0-47.0); Hemoglobin 11.7 g/dL (12.0-16.0); Mean Corp Hgb Conc. 31.5 g/dL (33.0-37.0); Mean Corpuscular Hgb 29.5 pg (27.0-31.0); Mean Corpuscular Volume 93.7 fL (81.0-99.0); Mean Platelet Volume 8.8 fL (7.4-10.4); Platelet Count 317 10^3/uL (130-400); Red Blood Cell Count 3.97 10^6/uL (4.20-5.40); Red Cell Dist. Width 14.7 % (11.5-14.5); White Blood Cell Count 7.6 10^3/uL (4.8-10.8)
[2024-09-18 10:39] LABS: ALT (SGPT) 35 U/L (0-35); AST (SGOT) 36 U/L (14-36); Albumin 3.9 g/dl (3.5-5.0); Alkaline Phosphatase 61 U/L (38-126); Blood Urea Nitrogen 20 mg/dl (7-17); Calcium 8.9 mg/dl (8.4-10.2); Chloride 93 mmol/L (98-107); Estimated Creatinine Clearance 63 ml/min; Glucose 77 mg/dl (70-99); Sodium 137 mmol/L (135-145); Total Bilirubin 0.3 mg/dl (0.2-1.3); Total Protein 6.2 g/dl (6.3-8.2); eGFR > 60.00
[2024-09-18 10:49] LABS: Carbon Dioxide 34 mmol/L (22-30)
[2024-09-18 11:30] VITALS: BP 157/81
--- NOTE | 2024-09-18 12:44 | W.PN.HOSP.TC ---
Addendum entered and electronically signed by Wale Brooke MD 09/19/24 17:08:
[id number]
Addendum entered and electronically signed by Wale Brooke MD 09/19/24 17:00:
SIRS due to a non-infectious source - Acute COPD exacerbation
Addendum entered and electronically signed by Wale Brooke MD 09/19/24 16:58:
Chronic hypoxic respiratory failure requiring continuous use home O2
Original Note:
Today's Communication/Plan
-
Prednisone taper
Levo butyryl MDI with albuterol MDI on discharge
DuoNebs
Follow-up with pulmonary, PCP outpatient
Assessment / Plan
Assessment / Plan
CXR: Emphysematous changes with bibasilar infiltrates, favored to pneumonia and possibly viral/atypical.
Influenza and Covid: Negative
Acute COPD Exacerbation
- flu and influenza negative. Patient was exposed to grandkids with URI prior to symptoms
- procal negative; patient reluctant to take abx - will hold off as no clear indication
- continue IV Decadron - patient slowly improving�switch to prednisone taper, 50 mg daily and reduce by 10 mg every 5 days until back to 10 mg daily home dose
-changed albuterol to Levalbuterol given tachycardia -on MDI at home
- close follow up with Dr. Julio at discharge
- [employer] inhaler
#Valvular stenosis s/p TAVR
- continue aspirin
Code Status: Full Code
DVT Prophylaxis: Lovenox Sq
More than 30 minutes spent in discharge including
Final examination of the patient
Summarizing hospital stay
Instructions for continuing care to all relevant caregivers
Preparation of discharge records, prescriptions, and referral forms
Total time spent (35 in minutes):
Anticipated Discharge: Today
Subjective/Interval History
-
Date of Service: September 18, 2024
no wheezing audible on auscultation
Objective Data
-
Labs:
Laboratory Results
09/18/24
08:34
WBC 7.6
Hgb 11.7 L
Hct 37.2
Plt Count 317
Sodium 137
Potassium 4.0
Chloride 93 L
Carbon Dioxide 34 H
BUN 20 H
Creatinine 0.6
Glucose 77
Calcium 8.9
Total Bilirubin 0.3
AST 36
ALT 35
Alkaline Phosphatase 61
Vital Signs:
Vital Signs
Temp Pulse Resp BP Pulse Ox
98.4 F 92 18 157/81 95
09/18/24 11:30 09/18/24 11:30 09/18/24 11:30 09/18/24 11:30 09/18/24 11:45
I&O
09/17/24 09/18/24 09/19/24
06:59 06:59 06:59
Intake Total 780 / 780
Balance 780 / 780
Review of Systems
-
History Source: Patient
All other systems: Not reviewed unless documented
Physical Exam
-
General: No Apparent Distress
HEENT: PERRLA
Respiratory: Clear to Auscultation
Cardiac: Regular Rhythm and S1/S2
GI: Soft and Nontender
Musculoskeletal: No Edema
Skin: Warm and Dry; Negative Rash
Neuro: AO x 3
Psych: Calm
Data Reviewed
-
Diagnostic Radiology: Report Reviewed by me
Labs: Labs Reviewed by me
--- NOTE | 2024-09-18 12:47 | W.DS.TRANS ---
DC Summary - Nurse [facility]
-
Discharge Instructions:
Discharge Diagnosis/Procedures Acute COPD Exacerbation
Diet Low Cholesterol,Low Fat
Activity As tolerated
Blood Work cbc, bmp in 1 week
Instructions:
Stand-Alone Forms:
Changes to Home Medications: Yes
Discharge Medications:
DC Medications w/original date entered in [facility]
cetirizine 10 mg tablet (Zyrtec) 10 mg PO DAILY 08/24/24
nicotine (polacrilex) 2 mg buccal lozenge 2 mg buccal DAILYPRN PRN cravings 08/26/24
prednisone 10 mg tablet 10 mg PO DAILY #40 tabs 08/27/24
aspirin 81 mg tablet,delayed release 81 mg PO DAILY 09/14/24
fluticasone furoate 200 mcg-vilanterol 25 mcg/dose inhalation powder (Breo Ellipta) 1 inh inhalation R DAILY 09/14/24
ipratropium 0.5 mg-albuterol 3 mg (2.5 mg base)/3 mL nebulization soln 3 ml inhalation R QIDPRN PRN sob 09/14/24
levalbuterol tartrate 45 mcg/actuation aerosol inhaler 1 puff inhalation Q6H PRN wheezing #15 grams 09/16/24
prednisone 10 mg tablet See Rx Instructions .Route .COMPLEX #80 tabs 09/18/24
Home Medication Changes
levalbuterol tartrate 45 mcg/actuation aerosol inhaler 1 puff inhalation Q6H PRN wheezing #15 grams 09/16/24
prednisone 10 mg tablet See Rx Instructions .Route .COMPLEX #80 tabs 09/18/24
Pending Results: No
--- NOTE | 2024-09-18 13:41 | CM ---
Pt is to d/c today.
Pt cont to decline HH, stated she does not need it.
IMM reviewed, pt given copy, copy placed in chart
Per pt, spouse will transport home
No other CM needs identified at this time
Plan: Home; no needs
[2024-09-18 15:27] VITALS: BP 154/76
== END 2024-09-18 16:20 | disposition home or self-care (01) | DRG 191 ==
LOC: 4 EAST ACU 22:13
PROVIDERS: Emergency Medicine; Nurse Practitioner Family; Student in an Organized Health Care Education/Training Program; ADMITTING PHYSICIAN Hospitalist; ATTENDING PHYSICIAN Internal Medicine; EMERGENCY PHYSICIAN Emergency Medicine; FAMILY PHYSICIAN Family Medicine
DX: J44.1 Chronic obstructive pulmonary disease with (acute) exacerbation (principal); J96.11 Chronic respiratory failure with hypoxia; R65.10 Systemic inflammatory response syndrome (SIRS) of non-infectious origin without acute organ dysfunction; J44.0 Chronic obstructive pulmonary disease with (acute) lower respiratory infection; Z87.891 Personal history of nicotine dependence; Z11.52 Encounter for screening for COVID-19; Z95.2 Presence of prosthetic heart valve
CPT/HCPCS: 71046; 80048; 80053; 83605; 84145; 85025; 85027; 87040; 87449; 87502; 87811; 87899; 93005; 94640; 96365; 96375; 97162; 97530; 99285

== ENCOUNTER 2024-10-06 13:11 | Inpatient (IN) | payer MEDICARE, OTHER, SELFPAY ==
[2024-10-06] VITALS (10 sets, daily range): BP systolic 128–168; BP diastolic 51–122; BMI 25.5
[2024-10-06 10:08] LABS: % Basophils 0.4 % (0-2); % Eosinophils 0.9 % (0-6); % Immature Granulocytes 0.5 % (0-0.5); % Lymphocytes 11.4 % (20.5-51.1); % Monocytes 4.7 % (1.7-9.3); % Neutrophils 82.1 % (42.2-75.2); Absolute Basophils 0.1 10^3/uL (0-0.2); Absolute Eosinophils 0.1 10^3/uL (0-0.7); Absolute Immature Granulocytes 0.1 10^3/uL (0-0.05); Absolute Lymphocytes 1.5 10^3/uL (1.2-3.4); Absolute Monocytes 0.6 10^3/uL (0.1-0.6); Absolute Neutrophils 10.5 10^3/uL (1.4-6.5); Hematocrit 37.2 % (37.0-47.0); Hemoglobin 11.4 g/dL (12.0-16.0); Mean Corp Hgb Conc. 30.6 g/dL (33.0-37.0); Mean Corpuscular Hgb 29.5 pg (27.0-31.0); Mean Corpuscular Volume 96.4 fL (81.0-99.0); Mean Platelet Volume 8.4 fL (7.4-10.4); Nucleated Red Blood Cells % 0 %; Platelet Count 235 10^3/uL (130-400); Red Blood Cell Count 3.86 10^6/uL (4.20-5.40); Red Cell Dist. Width 14.9 % (11.5-14.5); White Blood Cell Count 12.9 10^3/uL (4.8-10.8)
--- NOTE | 2024-10-06 10:18 | ED.GENMED ---
History of Present Illness
General
Chief Complaint: Chest Pain
Time Seen by Provider: 10/06/24 10:10
History of Present Illness
History of Present Illness:
Patient is a 69-year-old woman with history of COPD on oxygen, aortic stenosis status post replacement presenting to the emergency department with chest pain. Patient states that 8:30 AM she was sitting at her computer when she had midsternal chest
pain that was pressure. She states that it resolved after an hour. It is not positional or exertional. She did take 324 of aspirin. She is never had pain like this before. She is never had exertional chest pain. She does follow with
cardiology. Has not had a recent stress test done. She states that secondary to the pressure her COPD is flaring up. She is having some tightness. She did take her albuterol. Per chart review patient did have 2 recent admissions. 1 for
pneumonia and 1 for a COPD exacerbation. She does not feel that she is in an exacerbation currently. No fevers or chills. No nausea or vomiting. No leg swelling. No prior history of blood clot.
Past History
Past History
ED Past Medical History: COPD; Negative HTN, Hypercholesterolemia or NIDDM
ED Past Surgical History: Cardiac (TAVR) and Gynecological (Tubal ligation, vaginal cyst)
Social History
Tobacco: Former smoker
Alcohol: Daily (2-3 glasses of wine)
Drug: None
Personal:
Living: with family
Phy Exam
Physical Exam
Physical Exam:
GENERAL: in no acute distress
HEENT: normocephalic, extraocular movements intact, moist oral mucosa
NECK: normal inspection
RESPIRATORY: no respiratory distress, diminished breath sounds in all lung nova
CARDIOVASCULAR: regular rhythm, tachycardic
ABDOMEN/: soft, non-distended, non-tender to palpation, no rebound or guarding
EXTREMITIES: non-tender, no edema/swelling
NEUROLOGIC: awake and alert, moves all extremities
SKIN: warm
Scores
Heart Score for Chest Pain Patients
STEMI patient?: Not applicable
History: Slightly or Non-Suspicious
Course
Orders/Labs/Results
Orders:
Orders
10/06/24 09:54
Electrocardiogram (*1) Urgent
Reason for Study: Chest Pain
EKG- Treatment ONCE
10/06/24 09:59
Complete Blood Count/With Diff Urgent
Comprehensive Metabolic Panel Urgent
Troponin I Urgent
10/06/24 10:17
Ipratropium/Albuterol Sulfate [Duoneb] 3 ml INH R NOW ONE
CR Chest - 2 Views Urgent
Comment:
Reason For Exam: cp
10/06/24 11:02
PTT Urgent
Comment: Obtain baseline before beginning heparin infusion if not already collected
Heparin 3,600 units IV NOW STA
Pharmacy Request to Place See Dose Instructions PO NOW STA
Discontinue all Active Warfarin orders?: Yes
Nursing to Place Non Medication Order As Directed
Physician Order: PTT 6 hours after initial start of Heparin infusion
10/06/24 11:04
PTT Urgent
10/06/24 11:15
Heparin 79859 Units/250 ml 25,000 units in 250 ml IV PER PROTOCOL
Weight to be used for heparin protocol in kilograms (kg):: 59.3
Protocol:: Cardiac Tx/Acute Coronary
PTT Goal Range to be used:: PTT 73 to 111 seconds
Order type:: Initial
INITIAL Infusion Dose (UNITS/KG/hr) & then follow protocol:: 12 units/kg/hr
Infusion Dose in UNITS/hr & then follow protocol (UNITS/hr):: 700
INFUSION RATE in mL/hr & then follow protocol (mL/hr):: 7
PTT less than or equal to 64 seconds:: Increase rate by 200 units/hr (+ 2 mL/hr)
PTT 64.1 to 72.9 seconds:: Increase rate by 100 units/hr (+ 1 mL/hr)
PTT 73 to 111 seconds:: Target Range. No change in rate.
PTT 111.1 to 130.9 seconds:: Decrease rate by 100 units/hr (- 1 mL/hr)
PTT 131 to 199.9 seconds:: HOLD for 1 hr. Then decrease rate by 200 units/hr (- 2 mL/hr)
PTT greater than or equal to 200 seconds:: HOLD for 2 hrs & Notify Provider. Then decrease by 200 units/hr (-
2 mL/hr)
Lab follow-up:: Each change, PTT q6h until 2 consecutive are therapeutic. Then PTT
daily.
10/06/24 12:[address] See Dose Instructions IV DIRECTED
10/06/24 13:00
Troponin I Urgent
Abnormal Lab Results
10/06/24
09:59
WBC 12.9 H 10^3/uL
(4.8-10.8)
RBC 3.86 L 10^6/uL
(4.20-5.40)
Hgb 11.4 L g/dL
(12.0-16.0)
MCHC 30.6 L g/dL
(33.0-37.0)
RDW 14.9 H %
(11.5-14.5)
Abs Immat Gran (auto) 0.1 H 10^3/uL
(0-0.05)
Absolute Neuts (auto) 10.5 H 10^3/uL
(1.4-6.5)
Neutrophils % 82.1 H %
(42.2-75.2)
Lymphocytes % 11.4 L %
(20.5-51.1)
Potassium 3.1 L mmol/L
(3.5-5.1)
Chloride 87 L mmol/L
(98-107)
Carbon Dioxide 41 H mmol/L
(22-30)
Creatinine 0.5 L mg/dL
(0.6-1.0)
Glucose 110 H mg/dl
(70-99)
AST 37 H U/L
(14-36)
Troponin I 0.043 H* ng/ml
10/06/24 09:59
10/06/24 09:59
Vital Signs
Initial and Last Documented VS:
Initial Vital Signs
Temp Pulse Resp BP Pulse Ox
98.1 F 112 18 138/122 99
10/06/24 09:54 10/06/24 09:54 10/06/24 09:54 10/06/24 09:54 10/06/24 09:54
Last Documented Vital Signs
Temp Pulse Resp BP Pulse Ox
98.1 F 106 15 168/74 100
10/06/24 09:54 10/06/24 10:02 10/06/24 10:02 10/06/24 10:02 10/06/24 10:02
MDM/Problems Addressed
Differential Diagnosis Includes:
Patient is a 69-year-old woman with history of COPD on oxygen presenting to the emergency department chest pressure that has resolved. Vitals are notable for heart rate in the low 100s and exam does show tight breath sounds. Differential consists
of ACS versus pneumonia versus COPD exacerbation. Consider PE though less likely as patient has diminished breath sounds to suggest alternative source and has no leg swelling hemoptysis malignancy. Will obtain blood work EKG troponin. Patient
will need delta troponin. Will give DuoNeb and reassess.
*Critical Care Note
Total Time (30-74mins, 75-104mins- exclusive of procedures): 37
comment:
Critical care statement: A total of 37 minutes of critical care time was provided for this patient. This includes management of unstable vital signs, evaluation of the patient at bedside, reviewing the patient's pertinent medical records, ordering
and reviewing studies, arranging urgent treatment with development of a management plan, evaluating patient's response to treatment, frequent reassessment, and discussion with consultants. This time was separate from time utilized to perform the
aforementioned documented procedures.
Update Note
Update Note:
Initial troponin elevated. EKG per my interpretation with no significant ST elevation though might have some depression and V5.
On reevaluation patient remains pain-free. Her lungs do have much better aeration after the DuoNeb.
Discussed with [facility] cardiology who recommended initiating heparin drip. Delta troponin at 1300. Discussed with hospitalist who accepted patient to their service. X-ray pending at this time.
ED Attending Note
-
Portions of this chart may have been created with voice recognition software.� Occasional wrong word or��sound alike� substitutions may have occurred due to the inherent limitations of voice recognition software.
Discharge Plan
Departure
Patient Disposition: Admit
Date of Disposition: 10/06/24
Time of Disposition: 11:26
Presentation/result/management discussed w/ accepting MD/DO: Hospitalist
Discharge Problem:
Acute non-ST elevation myocardial infarction (NSTEMI)
Prescriptions:
No Action
cetirizine [Zyrtec] 10 mg Tablet
10 mg PO DAILY
nicotine (polacrilex) 2 mg Lozenge
2 mg buccal DAILYPRN PRN (Reason: cravings)
prednisone 10 MG tablet
10 mg PO DAILY Qty: 40 0RF
aspirin 81 mg Tablet,Delayed Release (Dr/Ec)
81 mg PO DAILY
fluticasone furoate-vilanterol [Breo Ellipta] 200-25 mcg/dose Blister With Device
1 inh INHALATION R DAILY
ipratropium-albuterol 0.5 mg-3 mg(2.5 mg base)/3 mL solution for nebulization
3 ml INHALATION R QIDPRN PRN (Reason: sob)
levalbuterol tartrate 45 mcg/actuation HFA aerosol inhaler
1 puff inhalation Q6H PRN (Reason: wheezing) Qty: 15 0RF
prednisone 10 mg Tablet
See Rx Instructions .ROUTE .COMPLEX Qty: 80 0RF
Rx Instructions:
Take By Mouth:
50 mg daily x5 days, 40 mg daily x5 days,
30 mg daily x5 days, 20 mg daily x5 days,
then continue 10 mg daily
Referrals:
Trenton Lock, DO [Family Provider] -
Interventions
Interventions:
*Risk Screen - Suicide Last Done: 10/06/24 10:00
*General Assessment Last Done: 10/06/24 10:00
*Neglect/Abuse Screening Last Done: 10/06/24 10:00
*ED COVID-19 Vaccine History Last Done: 10/06/24 10:00
ED- Cardiac Assessment Last Done: 10/06/24 10:00
Discharge Date and Time
Print Language: SYRIAC
[2024-10-06 10:22] LABS: ALT (SGPT) 32 U/L (0-35); AST (SGOT) 37 U/L (14-36); Albumin 4.1 g/dl (3.5-5.0); Alkaline Phosphatase 72 U/L (38-126); Blood Urea Nitrogen 13 mg/dl (7-17); Calcium 8.5 mg/dl (8.4-10.2); Chloride 87 mmol/L (98-107); Estimated Creatinine Clearance 70 ml/min; Glucose 110 mg/dl (70-99); Potassium 3.1 mmol/L (3.5-5.1); Sodium 140 mmol/L (135-145); Total Bilirubin 0.7 mg/dl (0.2-1.3); Total Protein 6.5 g/dl (6.3-8.2); eGFR > 60.00
[2024-10-06] MEDS: DUONEB 3 ML INH ×2 (10:30→20:44)
[2024-10-06 10:37] LABS: Troponin I 0.043 ng/ml
[2024-10-06 10:58] LABS: Carbon Dioxide 41 mmol/L (22-30)
[2024-10-06 11:28] LABS: APTT 24.8 Sec (23.4-35.0)
[2024-10-06] MEDS: HEPARIN 25000 UNITS/250 ML IV (11:43)
[2024-10-06] MEDS: HEPARIN 3600 UNITS IV (11:43)
--- NOTE | 2024-10-06 12:13 | HPS.HSE ---
Addendum entered and electronically signed by Jae Cramer MD 10/06/24 13:22:
69-year-old female with a past medical history of severe COPD on 3 L of oxygen at baseline, AF status post TAVR, and recent admission for COPD exacerbation with discharge on 09/18/2024 presents with substernal chest pressure. Patient reports that
her chest pressure lasted for 1 hour, resolved spontaneously. She denies nausea, vomiting, diaphoresis. No radiation. She took 4 baby aspirins prior to arrival.
Patient is hypokalemic with a potassium of 3.1. Initial troponin mildly elevated at 0.043. EKG reviewed.
She has a leukocytosis, from her prednisone use.
ER staff discussed with cardiology, who recommended IV heparin drip.
Will replete potassium, check magnesium, continue IV heparin drip, consult cardiology, trend troponins, trend EKG, check fasting lipid profile, hemoglobin A1c, echocardiogram.
Will order Xopenex for her COPD due to her tachycardia.
I have personally seen and examined the patient, and agree with the plan of care as documented by RADHA Parks.
Advance care planning discussed, patient is a full code.
All other issues as outlined by the advanced care practitioner.
Total time spent to see the patient on the floor, examine the patient, review data and lab results, discuss treatment plan with patient, nursing staff around 76 minutes.
Original Note:
Family Physician
-
Family Physician: Trenton Lock
Chief Complaint
-
chest pain
History of Present Illness
69 year-old woman with history of COPD on oxygen, aortic stenosis status post replacement presenting to the emergency department with chest pain. Patient states that 8:30 AM she was sitting at her computer when she had midsternal chest
pain/pressure like pain. it lasted for an hour. pain was non radiating and non exertional. patient stated she is been having sob for past few days. she took asa at home. denied ESPARZA, dizzy or syncope. denied fever, chills, congestion, cough. denied
abdominal pain,n,v,d. denied dysuria or hematuria.
upon arrival noted to have elevated trop. initiated on heparin drip. admitting for further management.
Medical History
Past Medical History
Past Medical History: Reports Other
Additional Past Medical History:
Lung nodule
Asthmatic bronchitis
COPD
Aortic wall stenosis
Past Surgical History: Reports Other
Additional Past Surgical History:
TVAR
-Bilateral cataract surgery
Tubal ligation
Social History
Tobacco: Former Smoker
Alcohol: Daily (glass of wine)
Drug: None
Family History
Family History: Not pertinent
Allergies / Home Medications
Allergies reflects when Allergies were last updated in [employer].
Home Medications with original date entered in [employer]
Allergy/Medication List:
Allergies
Allergy/AdvReac Type Severity Reaction Status Date / Time
doxylamine Allergy Shortness Verified 09/14/24 16:03
of Breath
Penicillins Allergy Anaphylaxis Verified 09/14/24 16:03
Home Medications
cetirizine 10 mg tablet (Zyrtec) 10 mg PO DAILY 08/24/24
nicotine (polacrilex) 2 mg buccal lozenge 2 mg buccal DAILYPRN PRN cravings 08/26/24
aspirin 81 mg tablet,delayed release 81 mg PO DAILY 09/14/24
fluticasone furoate 200 mcg-vilanterol 25 mcg/dose inhalation powder (Breo Ellipta) 1 inh inhalation R DAILY 09/14/24
ipratropium 0.5 mg-albuterol 3 mg (2.5 mg base)/3 mL nebulization soln 3 ml inhalation R QIDPRN PRN sob 09/14/24
levalbuterol tartrate 45 mcg/actuation aerosol inhaler 1 puff inhalation R Q6HPRN PRN wheezing 10/06/24
prednisone 10 mg tablet 20 mg PO DAILY 10/06/24
Review of Systems
-
Constitutional: Reports No Symptoms
EENT: Reports No Symptoms
Respiratory: Reports Trouble Breathing
Cardiac: Reports Chest Pain
Abdomen/GI: Reports No Symptoms
: Reports No Symptoms
Musculoskeletal: Reports No Symptoms
Skin: Reports No Symptoms
Neurological: Reports No Symptoms
Endocrine: Reports No Symptoms
Hematologic/Lymphatic: Reports No Symptoms
Psych: Reports No Symptoms
Physical Exam
Vital Signs
Vital Signs
Temp Pulse Resp BP Pulse Ox
98.1 F 101 16 131/99 99
10/06/24 09:54 10/06/24 12:00 10/06/24 12:09 10/06/24 12:00 10/06/24 11:45
Physical Exam
General: Well Developed, Well Nourished and No Apparent Distress
HEENT: NormoCephalic, Moist mucous membranes and Atraumatic
Respiratory: Decreased Breath Sounds
Cardiac: S1/S2 and Regular Rhythm; No Murmur or Rub
GI: Soft, Non Tender, Non Distended and Normal Bowel Sounds; No Organomegaly
Rectal: Deferred by Provider
Musculoskeletal: No Clubbing, No Cyanosis and No Edema
Skin: No Rash
Neuro: AO x 3 and Nonfocal/grossly intact
Psych: Calm
Laboratory Results
-
10/06/24 09:59
10/06/24 09:59
Laboratory Results
APTT 24.8 Sec (23.4-35.0) 10/06/24 11:04
Total Bilirubin 0.7 mg/dl (0.2-1.3) 10/06/24 09:59
AST 37 U/L (14-36) H 10/06/24 09:59
ALT 32 U/L (0-35) 10/06/24 09:59
Alkaline Phosphatase 72 U/L (38-126) 10/06/24 09:59
Troponin I 0.043 ng/ml H* 10/06/24 09:59
Data Reviewed
-
Lab Data: Labs Reviewed by me
Impression/Plan
-
# chest pain r/o NSTEMI
-Trop 0.043, continue to trend Trop
-Chest x-ray pending
-EKG with impression of sinus tachycardia. No significant ST changes
-Heparin drip continued
-Nitrostat prn for chest pain
-obtain ECHO
-Cardiology consult
# Anemia chronic disease
-Hemoglobin 11.4
-No active bleeding
-Continue to monitor
#leukocytosis likely from steroids
-patient is afebrile
-ctm
#Hypokalemia unclear cause
-K3.1
-oral kcl in ER
-BMP in am
#COPD/chronic hypoxic respiratory failure
-baseline 3l at home
-continue supplemental oxygen
-home nebs continued
#Valvular stenosis s/p TAVR
- continue aspirin
Code Status: CPR, no intubation
DVT Prophylaxis:heparin sq
[2024-10-06] MEDS: KCL 40 MEQ PO ×2 (12:37→21:37)
[2024-10-06 13:29] LABS: Troponin I 0.037 ng/ml
[2024-10-06 13:57] LABS: Magnesium 2.1 mg/dl (1.6-2.3)
--- NOTE | 2024-10-06 14:57 | CON.CAR ---
Consultation
Consultation Request
Date/Time Consultation Requested: October 06, 2024
Date/Time Consultation Performed: October 06, 2024
Requesting Provider: Hospitalist service
Performing Provider: Dr. Tony Ashley
Reason for Consultation: unstable angina
Medical History
-
Chief Complaint: Chest pain and shortness of breath
History of Present Illness:
HPI
69-year-old female with a past medical history of severe COPD on 3 L of oxygen at baseline, status post TAVR in 2019, and recent admission for COPD exacerbation with discharge on 09/18/2024 presents with substernal chest pressure. Patient
reports that her chest pressure lasted for 1 hour, resolved spontaneously. She denies nausea, vomiting, diaphoresis. No radiation. She took 4 baby aspirins prior to arrival.
She describes to me that the chest pain felt like ' someone grabbed and was squeezing my chest' as she points to the subxiphoid area at the the mid chest. When asked her specifically she tells me she did not have upper chest discomfort, she did not
have left-sided discomfort or arm discomfort or neck discomfort. She recalls that the pain lasted 1 hour she does not recall if anything made it any better or worse as it just spontaneously and suddenly resolved. She tells me she has never had a
similar discomfort.
- Troponin on arrival is 0.043 subsequently reduced to 0.037
- Additional laboratory studies show hypokalemia with potassium of 3.1
- ECG 10/06/24 10 AM interpreted by me and showing sinus tachycardia with PACs, LAE, cannot exclude septal infarct and when compared to prior EKG from September 14, 2024 there is no significant change
- Chest x-ray from this morning shows normal-sized heart, no vascular congestion, there is hyperinflation consistent with COPD.
Past Medical History
Past Medical History:
treated with TVAR 2019
Echocardiogram April 21, 2020 LVEF 55 to 60% #23 [place] OSIRIS 3 bioprosthetic aortic valve with peak and mean gradients of 20 and 10 mmHg, no AI
COPD
Lung nodule
Asthmatic bronchitis
Past Surgical History: Reports Other
Additional Past Surgical History:
Bilateral cataract surgery
Tubal ligation
Social History
Tobacco: Former Smoker
Alcohol: Daily (glass of wine)
Drug: None
Family History
Family History: Not pertinent
Allergies / Home Medications
Allergy/AdvReac Type Severity Reaction Status Date / Time
doxylamine Allergy Shortness Verified 09/14/24 16:03
of Breath
Penicillins Allergy Anaphylaxis Verified 09/14/24 16:03
�Medication �Instructions �Recorded �Confirmed �Type
cetirizine 10 mg tablet (Zyrtec) 10 mg PO DAILY 08/24/24 10/06/24 History
nicotine (polacrilex) 2 mg buccal 2 mg buccal DAILYPRN PRN cravings 08/26/24 10/06/24 History
lozenge
aspirin 81 mg tablet,delayed 81 mg PO DAILY 09/14/24 10/06/24 History
release
fluticasone furoate 200 1 inh inhalation R DAILY 09/14/24 10/06/24 History
mcg-vilanterol 25 mcg/dose
inhalation powder (Breo Ellipta)
ipratropium 0.5 mg-albuterol 3 mg 3 ml inhalation R QIDPRN PRN sob 09/14/24 10/06/24 History
(2.5 mg base)/3 mL nebulization
soln
levalbuterol tartrate 45 1 puff inhalation R Q6HPRN PRN 10/06/24 10/06/24 History
mcg/actuation aerosol inhaler wheezing
prednisone 10 mg tablet 20 mg PO DAILY 10/06/24 10/06/24 History
Review of Systems
-
History Source: Patient
All other systems: Negative unless noted
Constitutional: No Symptoms
EENT: No Symptoms
Respiratory: Trouble Breathing
Cardiac: Chest Pain (now resolved)
Abdomen/GI: No Symptoms
: No Symptoms
Musculoskeletal: No Symptoms
Skin: No Symptoms
Neurological: No Symptoms
Endocrine: No Symptoms
Hematologic/Lymphatic: No Symptoms
Physical Exam
Vital Signs
Temp Pulse Resp BP Pulse Ox
98.1 F 107 16 147/75 97
10/06/24 09:54 10/06/24 14:00 10/06/24 14:00 10/06/24 14:00 10/06/24 14:00
Lab Results
10/06/24 09:59
10/06/24 09:59
Troponin I 0.037 ng/ml H* 10/06/24 12:54
Impression / Plan
-
Assessment:
Chest pain
treated with TVAR 2019
Echocardiogram April 21, 2020 LVEF 55 to 60% #23 [place] OSIRIS 3 bioprosthetic aortic valve with peak and mean gradients of 20 and 10 mmHg, no AI
COPD
Sinus tachycardia
Recommendations:
There has been no rise in troponin (initial troponin 0.043 followed by 0.037) and her ECG is essentially at baseline with no changes to suggest myocardial infarction or ischemia.
I am uncertain as to the etiology of her chest discomfort. Chest discomfort is subxiphoid. Suddenly occurred and suddenly resolved. Nonreproducible on physical exam
She tells me that for the past week or so she has had worsening exacerbation of COPD. She correlates this to an attempt to wean her steroids as an outpatient.
Regarding her chest pain, it is rather atypical within initially slightly elevated above normal troponin that has not increased on subsequent troponin and EKG that is not suggestive of myocardial infarction or coronary ischemia.
-Continue to trend troponin
-Check a follow-up EKG
-Check echocardiogram on Tuesday
She does have sinus tachycardia and I am reluctant to start her on a beta-reyna given her rather brittle COPD. Her blood pressure is elevated however so I will start her on a long-acting calcium channel reyna, Cardizem CD.
-Will initiate Cardizem CD 120 mg daily
Regarding COPD, she appears to be currently in an exacerbation of her baseline COPD
-Further evaluation and management as per primary service, consider pulmonary evaluation
Sinus tachycardia
She tells me that her heart rate is always rather tachycardic and this is likely the case due to her O2 dependent COPD and physiologic state as well as medical therapy for her COPD.
While I would not treat sinus tachycardia specifically just for the heart rate, given that she has had some chest discomfort if she were to have any underlying ischemic coronary disease reducing her heart rate should be helpful. Cannot use
beta-reyna due to her brittle COPD and reactive airway disease. Her blood pressure is elevated and she would likely benefit from better blood pressure control so we will utilize Cardizem CD
-Will initiate Cardizem CD 120 mg daily
She had TAVR are in 2020 and I do not see an echocardiogram since 2019. On cardiac auscultation I do not suspect any significant valvular dysfunction and she is not in heart failure at present
-Check echocardiogram on Tuesday
Data Reviewed
-
EKG: Tracing Personally Visualized and interpreted
Radiology: Image Personally Visualized and interpreted and Report Reviewed by me
Medical Tests (Nuc Med, Echo etc): Report Reviewed by me
Labs: Labs Reviewed by me
Old Records: Reviewed
Total Time Spent with Patient (in minutes): 85
--- NOTE | 2024-10-06 15:03 | PTCARENOTE ---
Received the patient from the ED in a stretcher. The patient is aaox3, vss, 97% on 3L of O2. She ambulated to the scale and bed x1 assist. She is dyspneic on exertion and rest. Her lungs are diminished with faint scattered inspiratory wheezing
throughout. Sinus tach is noted on the monitor with HRs in the 120s. Heparin gtt running at 700 units/hr.
[2024-10-06] MEDS: CARDIZEM CD 120 MG PO (16:40)
[2024-10-06 16:59] LABS: Troponin I 0.033 ng/ml
[2024-10-06] MEDS: SYMBICORT 160/4.5 MCG INHALER 2 PUFF INH (17:06)
[2024-10-06] MEDS: XOPENEX HFA 45 MCG INHALER 1 PUFF INH (17:07)
[2024-10-06 18:25] LABS: APTT 25.1 Sec (23.4-35.0)
--- NOTE | 2024-10-06 20:58 | PTCARENOTE ---
Received patient at change of shift. Patient sitting in bed, oriented x3, visiting with sister sitting bedside. SOB and c/o chest tightness that was relieved from nebulizer treatment earlier-- reached out to respiratory-- neb given. Heparin running
through left AC @ 900 units/hr. BP 138/51, Sinus Tach 100s, 98% on 3L NC. Discussed plan of care for evening. Patient verbalized understanding. Call abreu within reach.
[2024-10-07 00:36] VITALS: BP 151/64
[2024-10-07 06:00] VITALS: BMI 25.1
[2024-10-07 07:33] VITALS: BP 153/65
--- NOTE | 2024-10-07 07:53 | W.PN.CARDCBS ---
Today's Communication / Plan
-
Her chest discomfort was noncardiac, no further ischemic evaluation is indicated at this time
I am checking an echocardiogram tomorrow given that she did have tissue aortic valve replacement, TAVR are 5 years ago and I do not see a follow-up echo
She is having an exacerbation of COPD, would strongly consider pulmonary evaluation
Impression / Plan
-
Assessment:
Chest pain
treated with TVAR 2019
Echocardiogram April 21, 2020 LVEF 55 to 60% #23 [place] OSIRIS 3 bioprosthetic aortic valve with peak and mean gradients of 20 and 10 mmHg, no AI
COPD
Sinus tachycardia
Recommendations:
There has been no rise in troponin (initial troponin 0.043 followed by 0.037) and her ECG is essentially at baseline with no changes to suggest myocardial infarction or ischemia.
I am uncertain as to the etiology of her chest discomfort. Chest discomfort is subxiphoid. Suddenly occurred and suddenly resolved. Nonreproducible on physical exam
She tells me that for the past week or so she has had worsening exacerbation of COPD. She correlates this to an attempt to wean her steroids as an outpatient.
Chest pain is rather atypical within initially slightly elevated above normal troponin that has not increased on subsequent troponin and EKG that is not suggestive of myocardial infarction or coronary ischemia.
-Troponin values 0.043, 0.037, 0.033
-Serial electrocardiograms without ischemic changes
-Overall I do not think her chest pain is cardiac in origin.
TAVR in 2019 and I do not see an echocardiogram since that time. Cardiac auscultation suggest no significant or AI.
-Check echocardiogram on Tuesday
Sinus tachycardia which she describes as chronic
Likely physiologic and related to her underlying chronic lung disease which is O2 dependent as well as the role of her medical treatment which includes beta agonists
I am reluctant to start her on a beta-reyna given her rather brittle COPD. Her blood pressure was elevated on presentation so I will started her on a long-acting calcium channel reyna, Cardizem CD.
Continue Cardizem CD 120 mg daily which was initiated October 06, 2024
Regarding COPD, she appears to be currently in an exacerbation of her baseline COPD
-Further evaluation and management as per primary service, consider pulmonary evaluation
total time 51 min
Progress Note - [employer]
Subjective
Date of Service: October 07, 2024
There is been no recurrence of chest discomfort.
She remains short of breath and she tells me she believes this is all due to her lung disease exacerbation of COPD
Objective
Labs:
Labs
Hgb 11.4 g/dL (12.0-16.0) L 10/06/24 09:59
Hct 37.2 % (37.0-47.0) 10/06/24 09:59
Plt Count 235 10^3/uL (130-400) 10/06/24 09:59
APTT 69.0 Sec (23.4-35.0) H 10/07/24 00:35
Sodium 140 mmol/L (135-145) 10/06/24 09:59
Potassium 3.1 mmol/L (3.5-5.1) L 10/06/24 09:59
BUN 13 mg/dl (7-17) 10/06/24 09:59
Creatinine 0.5 mg/dL (0.6-1.0) L 10/06/24 09:59
Glucose 110 mg/dl (70-99) H 10/06/24 09:59
Troponins
10/06/24 10/06/24 10/06/24
09:59 12:54 16:16
Troponin I 0.043 H* 0.037 H* 0.033
10/06/24 10/06/24
19:00 22:00
Troponin I Cancelled Cancelled
Vital Signs and I&O:
Vital Signs
Temp Pulse Resp BP Pulse Ox
98.1 F 72 24 151/64 98
10/07/24 07:32 10/07/24 06:00 10/07/24 07:32 10/07/24 00:36 10/07/24 07:32
Vital Signs
Temp Pulse Resp BP Pulse Ox
98.1 F 72 24 151/64 98
10/07/24 07:32 10/07/24 06:00 10/07/24 07:32 10/07/24 00:36 10/07/24 07:32
Physical Exam
Physical Exam
Mild respiratory distress sitting up in bed. Currently using inhaler
Regular and tachycardic normal S1 and S2, no S3 no S4 there is grade 1/6 apical holosystolic murmur no rub
Lungs with expiratory wheezes bilaterally, overall reduced breath sounds
Abdomen soft nontender nondistended with normoactive bowel sounds
Extremities show trace pretibial edema bilaterally
[2024-10-07 08:12] LABS: Hemoglobin 10.4 g/dL (12.0-16.0); Mean Corp Hgb Conc. 30.6 g/dL (33.0-37.0); Mean Corpuscular Hgb 29.5 pg (27.0-31.0); Mean Corpuscular Volume 96.3 fL (81.0-99.0); Mean Platelet Volume 8.8 fL (7.4-10.4); Platelet Count 240 10^3/uL (130-400); Red Blood Cell Count 3.53 10^6/uL (4.20-5.40); Red Cell Dist. Width 14.8 % (11.5-14.5); White Blood Cell Count 6.6 10^3/uL (4.8-10.8)
[2024-10-07] MEDS: SYMBICORT 160/4.5 MCG INHALER 2 PUFF INH ×2 (08:31→21:01)
[2024-10-07] MEDS: ZYRTEC 10 MG PO (08:39)
[2024-10-07] MEDS: FLUSH (NSS) 1 FLUSH IV (08:39)
[2024-10-07] MEDS: CARDIZEM CD 120 MG PO (08:39)
[2024-10-07] MEDS: ASPIR LOW (ENTERIC COATED) 81 MG PO (08:39)
[2024-10-07] MEDS: DELTASONE 20 MG PO (08:39)
[2024-10-07] MEDS: TYLENOL 650 MG PO (08:42)
[2024-10-07] MEDS: AYR SALINE NASAL GEL 1 APPLIC NASAL (08:42)
--- NOTE | 2024-10-07 08:45 | PTCARENOTE ---
The patient is aaox3, vss, 97% on 3L of O2. NSR is noted on the monitor. Heparin gtt running at 1000 units/hr. She complained of chest tightness. I text respiratory to give her a Neb treatment. She complained that the insides of her nostrils were
dry. PRN saline nasal gel given to the patient as ordered. In addition, humidification was adding to her oxygen.
[2024-10-07 08:47] LABS: Blood Urea Nitrogen 14 mg/dl (7-17); Calcium 8.3 mg/dl (8.4-10.2); Chloride 91 mmol/L (98-107); Estimated Creatinine Clearance 70 ml/min; Glucose 94 mg/dl (70-99); Magnesium 2.2 mg/dl (1.6-2.3); Potassium 3.8 mmol/L (3.5-5.1); Sodium 139 mmol/L (135-145); Total Cholesterol 251 mg/dl (50-199); Triglyceride 104 mg/dl (10-149); Very Low Density Lipoprotein 20 mg/dl (0-30); eGFR > 60.00
[2024-10-07 09:01] LABS: Carbon Dioxide 37 mmol/L (22-30); HDL Cholesterol 135 mg/dl; LDL Cholesterol, Calculated 96 mg/dl
[2024-10-07 09:09] LABS: Glycohemoglobin (HgbA1c) 5.5 % (4.0-5.6)
--- NOTE | 2024-10-07 09:39 | PTCARENOTE ---
Heparin gtt off per
[2024-10-07 11:37] VITALS: BP 132/92
[2024-10-07] MEDS: XOPENEX 1.25 MG INHALANT SOLUTION INH ×3 (11:52→21:00)
[2024-10-07] MEDS: ATROVENT NEBULES 0.5 MG INH ×3 (11:52→21:00)
[2024-10-07] MEDS: FLUSH (NSS) 2 FLUSH IV (12:58)
[2024-10-07] MEDS: DECADRON 4 MG IV ×2 (12:58→23:03)
--- NOTE | 2024-10-07 14:02 | PTCARENOTE ---
Addendum entered by Neda Peterson RN 10/07/24 14:41:
The patient wants her home med Breo to stay on her tray saying, 'its very expensive.'
Original Note:
The patient's brought in her home Breo inhaler, sent to pharmacy to profile it on the nov.
[2024-10-07 14:53] VITALS: BP 138/63
--- NOTE | 2024-10-07 15:52 | W.PN.HOSP.TC ---
Today's Communication/Plan
-
see bold
Assessment / Plan
Assessment / Plan
69-year-old female with a past medical history of severe COPD on 3 L of oxygen at baseline, status post TAVR, and recent admission for COPD exacerbation with discharge on 09/18/2024 presents with substernal chest pressure. Patient reports that
her chest pressure lasted for 1 hour, resolved spontaneously. She denies nausea, vomiting, diaphoresis. No radiation. She took 4 baby aspirins prior to arrival.
#Acute COPD exacerbation
#Chronic hypoxic respiratory failure
Patient is on prednisone 10 mg daily at baseline. On 3 L of oxygen, her baseline
She was discharged from the hospital on 09/18/2024 on a steroid taper for COPD exacerbation
She is currently on prednisone 20 mg daily, which we will hold
Treat with IV dexamethasone, Xopenex/ipratropium bronchodilators due to her tachycardia
Patient is known to Dr. Roy
#Sinus tachycardia
Improved with starting diltiazem 120 mg daily
#Hypokalemia
Repleted and resolved
#Leukocytosis
From prednisone use
#Chest pain
Resolved
Appreciate cardiology input, patient's pain is noncardiac
#History of aortic stenosis status post TAVR
Check echocardiogram
DVT prophylaxis�subcu Lovenox
No intubation
Total time spent to see the patient on the floor, examine the patient, review data and lab results, discuss treatment plan with patient, nursing staff around 51 minutes.
Physical Exam
General: No acute distress
HEENT: Normocephalic, Atraumatic, EOMI, MMM
Respiratory: Mild diffuse wheezing
Cardiac: Normal S1/S2, Regular Rate and Rhythm
GI: Soft, Nontender, Nondistended, Normal Bowel Sounds
Extremities: No Clubbing, Cyanosis, or Edema
Neuro: Nonfocal/Grossly Intact
Anticipated Discharge: > 48 hours
Subjective/Interval History
-
Date of Service: October 07, 2024
Patient complains of shortness of breath. Her chest pain has resolved. No fever, no vomiting.
Objective Data
-
Labs:
Laboratory Results
10/07/24 10/07/24
00:35 07:43
WBC Pending
Hgb Pending
Hct Pending
Plt Count Pending
APTT 69.0 H Pending
Sodium Pending
Potassium Pending
Chloride Pending
Carbon Dioxide Pending
BUN Pending
Creatinine Pending
Glucose Pending
Calcium Pending
Vital Signs:
Vital Signs
Temp Pulse Resp BP Pulse Ox
98.1 F 72 24 151/64 98
10/07/24 07:32 10/07/24 06:00 10/07/24 07:32 10/07/24 00:36 10/07/24 07:32
[2024-10-07] MEDS: ZITHROMAX 500 MG PO (16:15)
[2024-10-07 19:27] VITALS: BP 151/80
--- NOTE | 2024-10-07 20:07 | PTCARENOTE ---
Received patient at change of shift. Patient sitting up in bed, awake and oriented x3. BP 151/80, SR/ST 90s-100s, 97% on 3L. Discussed plan of care for evening and ECHO scheduled for tomorrow. Patient verbalized understanding and shared she had an
ECHO previously, so was aware of the test. Call abreu within reach.
[2024-10-07 22:59] VITALS: BP 163/65
[2024-10-08 05:20] VITALS: BP 134/86
[2024-10-08 05:33] VITALS: BMI 24.7
[2024-10-08 05:51] LABS: Hemoglobin 10.8 g/dL (12.0-16.0); Mean Corp Hgb Conc. 30.9 g/dL (33.0-37.0); Mean Corpuscular Hgb 29.8 pg (27.0-31.0); Mean Corpuscular Volume 96.7 fL (81.0-99.0); Mean Platelet Volume 8.8 fL (7.4-10.4); Platelet Count 261 10^3/uL (130-400); Red Blood Cell Count 3.62 10^6/uL (4.20-5.40); Red Cell Dist. Width 14.6 % (11.5-14.5); White Blood Cell Count 8.1 10^3/uL (4.8-10.8)
[2024-10-08 06:24] LABS: Blood Urea Nitrogen 13 mg/dl (7-17); Calcium 8.9 mg/dl (8.4-10.2); Carbon Dioxide 37 mmol/L (22-30); Chloride 93 mmol/L (98-107); Estimated Creatinine Clearance 63 ml/min; Glucose 178 mg/dl (70-99); Potassium 4.1 mmol/L (3.5-5.1); Sodium 137 mmol/L (135-145); eGFR > 60.00
[2024-10-08 07:55] VITALS: BP 142/83
[2024-10-08] MEDS: XOPENEX 1.25 MG INHALANT SOLUTION INH ×3 (08:53→19:48)
[2024-10-08] MEDS: ATROVENT NEBULES 0.5 MG INH ×3 (08:53→19:45)
[2024-10-08] MEDS: CARDIZEM CD 120 MG PO (08:56)
[2024-10-08] MEDS: ASPIR LOW (ENTERIC COATED) 81 MG PO (08:56)
[2024-10-08] MEDS: NON-FORMULARY ITEM 1 PUFF INH (08:56)
[2024-10-08] MEDS: ZITHROMAX 500 MG PO (08:56)
[2024-10-08] MEDS: ZYRTEC 10 MG PO (08:57)
--- NOTE | 2024-10-08 11:00 | W.PN.CARDCBS ---
Addendum entered and electronically signed by Layton Marvin DO 10/08/24 12:27:
I saw and examined the patient.
The Loader Operator/Ground Leader's note was reviewed and I agree with the note.
Comment:
Plan:
Chest pain is rather atypical within initially slightly elevated above normal troponin that has not increased on subsequent troponin and EKG that is not suggestive of myocardial infarction or coronary ischemia.
Consider outpt ischemic eval after follow up.
Echo pending to reeval EF and TAVR.
Cardizem for sinus tachycardia. Beta reyna avoided with COPD. HR improved
Consider pulm eval. Chronically on 3 L O2
Follows with Dr Ornelas.
Addendum entered and electronically signed by RADHA Bell 10/08/24 11:19:
adding physician co-signer
Original Note:
Today's Communication / Plan
-
check echo
continue cardizem for sinus tachycardia and BP
Impression / Plan
-
Assessment:
Chest pain
treated with TVAR 2019
Echocardiogram April 21, 2020 LVEF 55 to 60% #23 [place] OSIRIS 3 bioprosthetic aortic valve with peak and mean gradients of 20 and 10 mmHg, no AI
COPD
Sinus tachycardia
Recommendations:
There has been no rise in troponin (initial troponin 0.043 followed by 0.037) and her ECG is essentially at baseline with no changes to suggest myocardial infarction or ischemia.
I am uncertain as to the etiology of her chest discomfort. Chest discomfort is subxiphoid. Suddenly occurred and suddenly resolved. Nonreproducible on physical exam
She tells me that for the past week or so she has had worsening exacerbation of COPD. She correlates this to an attempt to wean her steroids as an outpatient.
Chest pain is rather atypical within initially slightly elevated above normal troponin that has not increased on subsequent troponin and EKG that is not suggestive of myocardial infarction or coronary ischemia.
-Troponin values 0.043, 0.037, 0.033
-Serial electrocardiograms without ischemic changes
-chest pain now resolved, not thought to be cardiac in origin.
-checking ECHO today
TAVR in 2019 and I do not see an echocardiogram since that time. Cardiac auscultation suggest no significant or AI.
-Check echocardiogram on Tuesday
Sinus tachycardia which she describes as chronic
Likely physiologic and related to her underlying chronic lung disease which is O2 dependent as well as the role of her medical treatment which includes beta agonists
I am reluctant to start her on a beta-reyna given her rather brittle COPD. Her blood pressure was elevated on presentation so I will started her on a long-acting calcium channel reyna, Cardizem CD.
Continue Cardizem CD 120 mg daily which was initiated October 06, 2024
personally reviewed telemetry: NSR 80s-90s
Regarding COPD, she appears to be currently in an exacerbation of her baseline COPD
-Further evaluation and management as per primary service, consider pulmonary evaluation
-chronically on O2 3L
total time 35 min
Progress Note - [employer]
Subjective
Date of Service: October 08, 2024
awaiting echo
a little more SOB after resp treatment this morning
no chest pain
Objective
Labs:
10/08/24 05:27
10/08/24 05:27
Labs
Hgb 10.8 g/dL (12.0-16.0) L 10/08/24 05:27
Hct 35.0 % (37.0-47.0) L 10/08/24 05:27
Plt Count 261 10^3/uL (130-400) 10/08/24 05:27
APTT Cancelled 10/07/24 14:35
Sodium 137 mmol/L (135-145) 10/08/24 05:27
Potassium 4.1 mmol/L (3.5-5.1) 10/08/24 05:27
BUN 13 mg/dl (7-17) 10/08/24 05:27
Creatinine 0.4 mg/dL (0.6-1.0) L 10/08/24 05:27
Glucose 178 mg/dl (70-99) H 10/08/24 05:27
Troponins
10/06/24 10/06/24 10/06/24
09:59 12:54 16:16
Troponin I 0.043 H* 0.037 H* 0.033
10/06/24 10/06/24
19:00 22:00
Troponin I Cancelled Cancelled
Vital Signs and I&O:
Vital Signs
Temp Pulse Resp BP Pulse Ox
97.8 F 99 24 142/83 96
10/08/24 05:32 10/08/24 09:00 10/08/24 08:58 10/08/24 08:56 10/08/24 08:58
Vital Signs
Temp Pulse Resp BP Pulse Ox
97.8 F 99 24 142/83 96
10/08/24 05:32 10/08/24 09:00 10/08/24 08:58 10/08/24 08:56 10/08/24 08:58
Intake & Output
10/06/24 10/07/24 10/08/24 10/09/24
06:59 06:59 06:59 06:59
Intake Total 720 / 720
Balance 720 / 720
Physical Exam
Physical Exam
GEN: No distress, awake, Ox3
HEENT: supple, anicteric, mmm
LUNGS: BS decreased
CV: Reg, S1/S2, 1/6 syst LSB, no murmur
ABD: soft, BS+, NT/ND
EXT: No edema
NEURO: Gross non-focal
SKIN: No rash
[2024-10-08] MEDS: DECADRON 4 MG IV ×2 (11:54→22:59)
--- NOTE | 2024-10-08 12:02 | W.PN.HOSP.TC ---
Today's Communication/Plan
-
see bold
Assessment / Plan
Assessment / Plan
Gen: NAD, AAOx3, appears chronically ill.
Eyes: EOMI, PERRLA, no scleral icterus.
Neck: supple.
CV: tachy, reg rhythm, +S1/S2, no m/r/g.
Resp: distant BS, CTAB, no rales, wheezes, or rhonchi.
Abd: +BS, soft, NT, ND
Skin: No rashes.
Neuro: CN 2-12 intact, non-focal.
Psych: Normal mood and affect.
Acute on chronic hypoxemic respiratory failure due to acute COPD exacerbation:
-on prednisone 10mg daily and 3L NC O2 at baseline
-discharged from the hospital on 09/18/2024 on a steroid taper for COPD exacerbation (was down to 20mg daily)
-cont IV decadron
-cont Breo
-cont Xopenex/ipratropium bronchodilators due to her tachycardia
-pulm c/s
Other problems:
Sinus tachycardia: improved with starting diltiazem 120 mg daily
Hypokalemia, resolved
Steroid induced leukocytosis
Chest pain, resolved and was noncardiac as per cardiology
h/o s/p TAVR
Limited code (no intubation)/Lovenox
Anticipated Discharge: 24 - 48 hours
Subjective/Interval History
-
Date of Service: October 08, 2024
Reports that recent cologne exposure has exacerbated her SOB.
Objective Data
-
Labs:
Laboratory Results
10/08/24
05:27
WBC 8.1
Hgb 10.8 L
Hct 35.0 L
Plt Count 261
Sodium 137
Potassium 4.1
Chloride 93 L
Carbon Dioxide 37 H
BUN 13
Creatinine 0.4 L
Glucose 178 H
Calcium 8.9
Vital Signs:
Vital Signs
Temp Pulse Resp BP Pulse Ox
97.8 F 99 24 142/83 96
10/08/24 05:32 10/08/24 09:00 10/08/24 08:58 10/08/24 08:56 10/08/24 08:58
I&O
10/07/24 10/08/24 10/09/24
06:59 06:59 06:59
Intake Total 720 / 720
Balance 720 / 720
--- NOTE | 2024-10-08 15:35 | CM ---
spoke with pt in room, she is prev indep, lives with her jusb in a split level home with 5 steps to enter. she has home O2 at 3L and does not remember the olamide of the dme provider. she denies dc planning needs. plan is for dc to home when medically
stable.
[2024-10-08 15:45] VITALS: BP 129/66
--- NOTE | 2024-10-08 18:13 | PTCARENOTE ---
Discussed all nursing measures and plan of care w/ pt. Pt's VSS. Pt continues to c/o SOB and JESSICA. Pt continues to utilize the bedside commode. Pt verbalized her sensitivity to purfume smells, which escalates her asthma. Will monitor.
[2024-10-08 18:46] LABS: Hepatitis C Antibody Negative (Negative)
--- NOTE | 2024-10-08 20:11 | W.PN.UPDATE ---
Update Note
Progress Note Update
pt states she cannot 'tolerate' xopenex. Takes albuterol at home and can tolerate that. She is aware that albuterol can raise her HR and she is aware. Will change med
[2024-10-08 20:55] VITALS: BP 157/71
--- NOTE | 2024-10-08 22:50 | PTCARENOTE ---
Pt received at change of shift. NSR on tele with HR 90s. Pt denies CP and is orthopneic, leaning forward in bed, POX 97% on 3L NC. Pt with orders to be transferred to tele on 3W. Plan of care discussed with pt. Report called to receiving RN on 3
west and pt transported via wheelchair with all personal belongings.
[2024-10-08 23:00] VITALS: BP 150/72
--- NOTE | 2024-10-08 23:03 | PTCARENOTE ---
pt transferred from IVU to 3W rm [id number]. Pt aaox3 and Sinus tach on tele # [phone]. BSC in place for pt. Call abreu within reach and plan of care ongoing.
[2024-10-09 03:30] VITALS: BP 146/53
[2024-10-09 06:31] LABS: Hematocrit 34.1 % (37.0-47.0); Hemoglobin 10.5 g/dL (12.0-16.0); Mean Corp Hgb Conc. 30.8 g/dL (33.0-37.0); Mean Corpuscular Hgb 29.5 pg (27.0-31.0); Mean Corpuscular Volume 95.8 fL (81.0-99.0); Platelet Count 291 10^3/uL (130-400); Red Blood Cell Count 3.56 10^6/uL (4.20-5.40); Red Cell Dist. Width 14.5 % (11.5-14.5); White Blood Cell Count 11.2 10^3/uL (4.8-10.8)
[2024-10-09 06:59] LABS: Blood Urea Nitrogen 20 mg/dl (7-17); Calcium 8.8 mg/dl (8.4-10.2); Carbon Dioxide 38 mmol/L (22-30); Chloride 92 mmol/L (98-107); Estimated Creatinine Clearance 63 ml/min; Glucose 157 mg/dl (70-99); Potassium 4.2 mmol/L (3.5-5.1); Sodium 137 mmol/L (135-145); eGFR > 60.00
[2024-10-09] MEDS: NON-FORMULARY ITEM 1 PUFF INH (07:14)
[2024-10-09] MEDS: ATROVENT NEBULES 0.5 MG INH ×2 (07:14→13:31)
[2024-10-09 07:22] VITALS: BP 131/58
[2024-10-09] MEDS: ZYRTEC 10 MG PO (08:01)
[2024-10-09] MEDS: ASPIR LOW (ENTERIC COATED) 81 MG PO (08:01)
[2024-10-09] MEDS: ZITHROMAX 500 MG PO (08:01)
[2024-10-09] MEDS: CARDIZEM CD 120 MG PO (08:01)
--- NOTE | 2024-10-09 10:35 | W.PN.HOSP.TC ---
Addendum entered and electronically signed by Hollis Luz MD 10/09/24 13:25:
Correction: The chronic hypoxemic respiratory failure. There actually is not an acute component.
Original Note:
Today's Communication/Plan
-
Can likely d/c today after seen by pulmonary.
Assessment / Plan
Assessment / Plan
Gen: NAD, AAOx3, appears chronically ill.
Eyes: EOMI, PERRLA, no scleral icterus.
Neck: supple.
CV: RRR, +S1/S2, no m/r/g.
Resp: distant BS, mild exp wheezes
Abd: +BS, soft, NT, ND
Skin: No rashes.
Neuro: remains CN 2-12 intact, non-focal.
Psych: Normal mood and affect.
Acute on chronic hypoxemic respiratory failure due to acute COPD exacerbation:
-on prednisone 10mg daily and 3L NC O2 at baseline
-discharged from the hospital on 09/18/2024 on a steroid taper for COPD exacerbation (was down to 20mg daily)
-cont IV decadron, azithro for antiinflammatory effects
-cont Breo
-cont ipratropium, albuterol PRN
-pulm c/s
Other problems:
Sinus tachycardia: improved with starting diltiazem 120 mg daily
Hypokalemia, resolved
Steroid induced leukocytosis
Chest pain, resolved and was noncardiac as per cardiology
h/o s/p TAVR
Limited code (no intubation)/Lovenox
Anticipated Discharge: Today
Subjective/Interval History
-
Date of Service: October 09, 2024
c/o SOB.
Objective Data
-
Labs:
Laboratory Results
10/09/24
05:10
WBC 11.2 H
Hgb 10.5 L
Hct 34.1 L
Plt Count 291
Sodium 137
Potassium 4.2
Chloride 92 L
Carbon Dioxide 38 H
BUN 20 H
Creatinine 0.5 L
Glucose 157 H
Calcium 8.8
Vital Signs:
Vital Signs
Temp Pulse Resp BP Pulse Ox
99.1 F 80 17 131/58 97
10/09/24 07:22 10/09/24 07:22 10/09/24 07:22 10/09/24 07:22 10/09/24 07:22
I&O
10/08/24 10/09/24 10/10/24
06:59 06:59 06:59
Intake Total 720 / 720 480 / 480
Balance 720 / 720 480 / 480
[2024-10-09 11:10] VITALS: BP 133/56
[2024-10-09] MEDS: DECADRON 4 MG IV (11:12)
[2024-10-09] MEDS: VISBIOME 2 CAP PO (11:12)
--- NOTE | 2024-10-09 12:48 | PN.CDI ---
CDI
- -
CDI:
Physician Documentation Request
Admit Date: 10/06/24 13:11
Dear Doctor Natty,
Please review the following and provide your response in the progress notes.
Clinical Indicators:
Documentation in the record on _10/09 PN_ includes the diagnosis of acute hypoxemic respiratory failure. The patient's respiratory clinical indicators were the following:
- Patient admit for COPD exacerbation
- 10/06 ER Physician 'no respiratory distress, diminished breath sounds in all lung nova'
- 10/06 H&P 'severe COPD on 3 L of oxygen at baseline'
- 10/06 RN note 'She is dyspneic on exertion and rest'
- Documented VS 3L O2, SpO2 > 91%
Based on the above information and the recognized standard for respiratory failure could you please verify this diagnoses is still accurate and reflective of the patient�s condition to ensure quality of the medical record.
Please clarify in the Progress Notes:
Acute hypoxemic respiratory failure is/was present and is a clinical diagnosis based on (please include this additional support in the medical record)
After study acute hypoxemic respiratory failure has been ruled out, chronic hypoxic respiratory failure only
Other (please specify)
Recognized standard criteria for respiratory failure includes:
(Source: [employer] [facility] Jul 2013)
ABGs (1 or more)
�PO2 <60 or RA SpO2 <91%
�PcO2 >50 and pH <7.35
�pO2 decrease or pcO2 increase by 10 mmHg from baseline if known Symptoms:
�Tachypnea, SOB, dyspnea
�Pallor or cyanosis
�Anxiety or restlessness
�Use of accessory muscles
�Retractions (grunting in newborns)
�Unable to speak in complete sentences
Supplemental O2 requirement of 40% (5LPM) or more Intubation is not required
Use of terms such as suspected, likely, concern for, or probable (associated with a specific diagnosis that is being evaluated, monitored, or treated as if it exists) are acceptable and can be coded in the inpatient setting, when documented at the
time of discharge.
Thank you,
Jonathan Simmons RN
CDI Specialist
Please use your independent medical judgment in providing your response.
--- NOTE | 2024-10-09 12:58 | PN.CDI ---
CDI
- -
CDI:
Physician Documentation Request
Admit Date: 10/06/24 13:11
Dear Cardiology,
Please review the following and provide your response in the progress notes.
Clinical Indicators:
- 10/06 H&P 'chest pain r/o NSTEMI'
- 10/08 Cardiology 'Chest pain is rather atypical'
- 'EKG that is not suggestive of myocardial infarction or coronary ischemia'
Laboratory Tests
10/06/24 10/06/24 10/06/24
09:59 12:54 16:16
Troponin I 0.043 H* 0.037 H* 0.033
Please clarify the following regarding the documented elevated troponins:
Non-ischemic myocardial injury
NSTEMI
Clinically insignificant abnormal lab value
Other (please specify)
Use of terms such as suspected, likely, concern for, or probable (associated with a specific diagnosis that is being evaluated, monitored, or treated as if it exists) are acceptable and can be coded in the inpatient setting, when documented at the
time of discharge.
Thank you,
Jonathan Simmons RN
CDI Specialist
Please use your independent medical judg
ment in providing your response.
--- NOTE | 2024-10-09 13:18 | CON.PUL ---
Consultation
Consultation Request
Date/Time Consultation Requested: 10/08/24
Date/Time Consultation Performed: 10/09/24
Performing Provider: Monae
Reason for Consultation: COPD
Medical History
-
History of Present Illness:
Patient is a 69-year-old female with a past medical history of severe COPD on 3 L of oxygen at baseline, AF status post TAVR, and recent admission for COPD exacerbation with discharge on 09/18/2024 presents with substernal chest pressure. Patient
reports that her chest pressure lasted for 1 hour, resolved spontaneously. She denies nausea, vomiting, diaphoresis. No radiation. She took 4 baby aspirins prior to arrival. In ER, she is hypokalemic with a potassium of 3.1. Initial troponin
mildly elevated at 0.043, EKG negative. Placed on IV heparin drip.
Eval by cards not indicated ACS, chest pain likely related to AECOPD.
Past Medical History
Past Medical History: Other (see list below)
Social History
Tobacco: Former Smoker
Alcohol: None
Drug: None
Family History
Family History: Reviewed & Not Pertinent
Allergies / Home Medications
Allergies
Allergy/AdvReac Type Severity Reaction Status Date / Time
doxylamine Allergy Shortness Verified 09/14/24 16:03
of Breath
Penicillins Allergy Anaphylaxis Verified 09/14/24 16:03
orris root Allergy Shortness Uncoded 10/08/24 13:39
of Breath
xopenex AdvReac Unknown Unknown Uncoded 10/08/24 20:13
Home Medications
�Medication �Instructions �Recorded �Confirmed �Last Taken �Type
cetirizine 10 mg tablet (Zyrtec) 10 mg PO DAILY Allergies 08/24/24 10/06/24 10/06/24 History
nicotine (polacrilex) 2 mg buccal 2 mg buccal DAILYPRN PRN cravings 08/26/24 10/06/24 08/26/24 History
lozenge
aspirin 81 mg tablet,delayed 81 mg PO DAILY Blood Clot 09/14/24 10/06/24 10/06/24 History
release Prevention/Tx
fluticasone furoate 200 1 inh inhalation R DAILY 09/14/24 10/06/24 10/06/24 History
mcg-vilanterol 25 mcg/dose Lung/Breathing Issues
inhalation powder (Breo Ellipta)
ipratropium 0.5 mg-albuterol 3 mg 3 ml inhalation R QIDPRN PRN sob 09/14/24 10/06/24 09/14/24 History
(2.5 mg base)/3 mL nebulization
soln
levalbuterol tartrate 45 1 puff inhalation R Q6HPRN PRN 10/06/24 10/06/24 Unknown History
mcg/actuation aerosol inhaler wheezing
prednisone 10 mg tablet 20 mg PO DAILY 10/06/24 10/06/24 10/06/24 History
Review of Systems
-
History Source: Patient
All other systems: Negative unless noted
Vitals / Labs / Diagnostic Testing
Vital Signs
Temp Pulse Resp BP Pulse Ox
99.4 F 88 17 133/56 91
10/09/24 11:10 10/09/24 11:10 10/09/24 11:10 10/09/24 11:10 10/09/24 11:10
Lab Data
10/09/24 05:10
10/09/24 05:10
Diagnostic Testing:
Physical Exam
-
HEENT: Normocephalic, Anicteric and Moist Mucous Membranes
Cardiovascular: S1/S2 and Regular Rhythm
Respiratory: Clear (overall decreased, poor air movement) and Non-Labored Respirations
GI: Soft, Non Distended and Non Tender
Neurology: Awake, Alert, Oriented and No Motor Deficits
Skin: Warm, Dry and Good Color
General: Comfortable and Other (NAD)
Assessment
-
Patient is a 69-year-old female with a past medical history of severe COPD on 3 L of oxygen at baseline, AF status post TAVR, and recent admission for COPD exacerbation with discharge on 09/18/2024 presents with substernal chest pressure. Patient
reports that her chest pressure lasted for 1 hour, resolved spontaneously. She denies nausea, vomiting, diaphoresis. No radiation. She took 4 baby aspirins prior to arrival. In ER, she is hypokalemic with a potassium of 3.1. Initial troponin
mildly elevated at 0.043, EKG negative. Placed on IV heparin drip. Eval by cards not indicated ACS, chest pain likely related to AECOPD. We are consulted for eval.
AECOPD
Chest pressure s/o ACS
Acute on chronic SOB
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
Severe COPD
Follows Dr Julio
On chronic O2 use, Maintained on chronic prednisone 20mg daily
100 year pack smoking history, ongoing
Tobacco abuse, ongoing currently 18 cigarettes a day
s/p TAVR 2019
Lung nodules
Chronic lower back pain
Daily alcohol use
Cataract surgery b/l
Tubal ligation
Plan
Recurrent AECOPD noted, last admission 09/20/24, 08/28/24
Prior admissions 10/04/21, 09/10/19
She is maintained on 3L NC, 97%
This is her baseline usage
She has been on prednisone taper following each admission, feels by 20mg prednisone her symptoms are returning
We discussed stopping her taper at 30mg and will wean slowly once seen as OP (by 5mg)
Chest x-ray without acute infection
She has no elevation of trops, EKG negative
Eval by cards, not in ACS
We reviewed her lung function, she is aware she is severe and in stage IV category
May consider azithro dosing MWF as outpatient
Recommend outpatient pulmonary follow-up with a full pulmonary function test, 6 minute walk, low-dose CT scan he has an outpatient
We will follow and arrange outpatient FU
Discharge planning per team ok from our standpoint, but patient wishes to go tomorrow--discussed with care team
Diagnostic Data
Chest X-Ray: 10/06/24- Hyperinflation, consistent with COPD. Previous aortic valve replacement. No pneumothorax. No radiographically demonstrable pleural effusion.
09/14/24- Emphysematous changes with bibasilar infiltrates, favored to pneumonia and possibly viral/atypical.
CT Scan: CHEST 09/23/20- Progressed probable focal consolidation and pneumonia in the right upper lobe. Underlying mass not completely excluded. Stable and improved bilateral spiculated and calcified pulmonary nodules as described above.
Stable severe emphysematous disease. Stable tiny pericardial effusion versus pericardial thickening.
Echo: 10/08/24- Normal left ventricular chamber size. Normal left ventricular systolic function. Normal regional wall motion. Mild concentric left ventricular hypertrophy. Left ventricular ejection fraction is 60-65% by visual estimate. Stage I
diastolic dysfunction suggestive of abnormal relaxation.
Thickened mitral valve leaflets. Dense mitral annular calcification. Restricted leaflet motion. Mild to moderate mitral stenosis. Mitral valve area by pressure halftime is calculated at 2.3 cm2. Peak/mean gradients across the mitral valve are
26/10 mmHg respectively. Trace mitral regurgitation.
Indexed LA volume is mildly abnormal (35-41 mL/m2). 23 mm Ventura Jonna transcatheter aortic valve replacement. Peak/mean gradients across the aortic valve are 27/15 mmHg respectively. Trace aortic regurgitation is seen. Tricuspid valve opens
normally. Mild tricuspid regurgitation. Estimated pulmonary artery pressure of 44 mmHg assuming a right atrial pressure of 3 mmHg. Since echo April 2020, there is mild to moderate mitral stenosis. The mean pressure gradient across the TAVR has
increased from 10 mmHg to 15 mmHg
PFT's: 09/06/19- FEV1 0.59L 28%, FVC 0.63L 24%, ratio 93. post FEV1 0.39L 19% no BD response (mixed pattern, severely reduced)
Reports and relevant images were personally reviewed.
Total time spent on this consultation __77__ minutes which includes review of history, physical exam, medications, laboratory data, personal review of imaging, extensive review of outpatient records, discussion with care team and respiratory therapy.
[2024-10-09 14:26] LABS: NT-proBNP 307 pg/ml
--- NOTE | 2024-10-09 15:03 | W.DCSUMMARY ---
Discharge Summary
Discharge Data
Date of Admission: 10/06/24
Date of Discharge: 10/09/24
-
Pending Results: No
Hospital Course
Primary diagnoses:
Acute exacerbation of chronic obstructive pulmonary disease
Secondary diagnoses:
Chronic hypoxemic respiratory failure
Sinus tachycardia
Hypokalemia
Steroid induced leukocytosis
Noncardiac chest pain
h/o aortic stenosis s/p transcatheter aortic valve
Consultants:
Cardiology
Pulmonary
Imaging:
Echo: Normal left ventricular chamber size. Normal left ventricular systolic
function. Normal regional wall motion. Mild concentric left ventricular
hypertrophy. Left ventricular ejection fraction is 60-65% by visual estimate.
Stage I diastolic dysfunction suggestive of abnormal relaxation.
Thickened mitral valve leaflets. Dense mitral annular calcification.
Restricted leaflet motion. Mild to moderate mitral stenosis. Mitral valve area
by pressure halftime is calculated at 2.3 cm2. Peak/mean gradients across the
mitral valve are 26/10 mmHg respectively. Trace mitral regurgitation.
Indexed LA volume is mildly abnormal (35-41 mL/m2).
23 mm Ventura Jonna transcatheter aortic valve replacement. Peak/mean
gradients across the aortic valve are 27/15 mmHg respectively. Trace aortic
regurgitation is seen.
Tricuspid valve opens normally. Mild tricuspid regurgitation. Estimated
pulmonary artery pressure of 44 mmHg assuming a right atrial pressure of 3
mmHg.
Since echo April 2020, there is mild to moderate mitral stenosis. The mean
pressure gradient across the TAVR has increased from 10 mmHg to 15 mmHg
CXR: The heart is normal in size. No significant vascular congestion. On the frontal projection, subtle increased opacity at both lung bases. However, not reproduced on lateral projection. Therefore, consistent with artifact related to overlying
chest wall/breast soft tissues. Hyperinflation, consistent with COPD. Previous aortic valve replacement. No pneumothorax. No radiographically demonstrable pleural effusion.
Hospital course: 69-year-old female who initially presented with chief complaint of substernal chest pressure as outlined in the H&P done on admission. Patient was found to have a minimally elevated troponin of 0.043. It trended down to 0.033.
She was seen in consultation by cardiology and it was determined that her chest pain was noncardiac. She was diagnosed with an acute exacerbation of COPD. She did not require more than her baseline supplemental oxygen of 3L/min. She was treated
with IV Decadron. She was seen in consultation by pulmonary and cleared for discharge. She will be on 30 mg of prednisone daily until seen in follow-up by pulmonary.
Discharge Plan
-
Patient Disposition: Home (Routine Discharge)
Discharge Diagnosis/Procedures: Exacerbation of chronic obstructive pulmonary disease
Condition: Fair
Diet: Low Cholesterol
Activity: As tolerated
Driving Restrictions: As prior to admission
Referrals:
Flavai Licona DO [Active] - in one to two weeks (PFTs, switch from [facility] to [facility])
Trenton Lock DO [Family Provider] - in less than 1 week
Prescriptions:
New
albuterol sulfate 1.25 mg/3 mL Solution For Nebulization
1.25 mg inhalation R Q4HPRN PRN (Reason: sob/wheeze) Qty: 90 0RF
diltiazem HCl 120 mg Capsule,Extended Release 24hr
120 mg PO DAILY Qty: 30 0RF
ipratropium bromide 0.02 % Solution
0.5 mg inhalation R TID Qty: 90 0RF
Lactobac/Bifidobac [Visbiome]
2 cap PO DAILY Qty: 0 0RF
prednisone 10 mg tablet
30 mg PO DAILY Qty: 90 0RF
Continued
cetirizine [Zyrtec] 10 mg Tablet
10 mg PO DAILY
nicotine (polacrilex) 2 mg Lozenge
2 mg buccal DAILYPRN PRN (Reason: cravings)
aspirin 81 mg Tablet,Delayed Release (Dr/Ec)
81 mg PO DAILY
fluticasone furoate-vilanterol [Breo Ellipta] 200-25 mcg/dose Blister With Device
1 inh INHALATION R DAILY
Discontinued
ipratropium-albuterol 0.5 mg-3 mg(2.5 mg base)/3 mL solution for nebulization
3 ml INHALATION R QIDPRN PRN (Reason: sob)
prednisone 10 mg tablet
20 mg PO DAILY
Patient Comments:
10/06/24: Per patient to take for 3 more days, then decrease to normal 10mg QD dosage.
levalbuterol tartrate 45 mcg/actuation HFA aerosol inhaler
1 puff inhalation R Q6HPRN PRN (Reason: wheezing)
Patient Comments:
pt stated she cannot tolerate this medication
Discharge Orders:
Discharge Patient (As Directed); Ordered 10/09/24
Ordered By: Hollis Luz
Care Plan Goals
Care Plan Goals:
Problem: Readiness for enhanced knowledge related to diagnosis and treatment plan
Goal: Understand your diagnosis and treatment plan needs, including medications if applicable.
Instructions: Know your diagnosis, underlying causes and treatment plan options, including medications if applicable. Consult with your health care team to learn about your diagnosis and treatment plan, including medications if applicable.
Discharge Date and Time
Print Language: TONGAN
--- NOTE | 2024-10-09 15:15 | CM ---
Met with patient at bedside to discuss discharge
IMM benefit explained; form signed @ [id number]
Patient stated that she is not able to go home
[2024-10-09 15:37] VITALS: BP 172/72
--- NOTE | 2024-10-09 16:29 | W.PN.CARDCBS ---
Addendum entered and electronically signed by Kyle Sarabia MD 10/09/24 19:38:
Late entry: Patient seen at 12:30 PM
69-year-old woman with oxygen dependent COPD and history of TAVR in 2019, recently admitted with COPD exacerbation admitted with chest discomfort. Troponin detectable at 0.043 and 0.037, proBNP is 307
Medications: Atrovent, aspirin 81 mg a day, Zyrtec, diltiazem ER 120 mg a day, dexamethasone 4 mg IV every 12, Breo Ellipta, Zithromax, lactobacillus
133/56, pulse 88, respirate 17 afebrile, weight is 57.3 kg as of yesterday, , prolonged S. Tory phase, appears uncomfortable, regular rate and rhythm,
White count 11.2, hemoglobin 10.5, platelets 291, BUN and creatinine are 20 and 0.5 with a potassium of 4.2
Chest x-ray, mild blunting in bases, Ventura transcatheter aortic valve
ECG, sinus rhythm/tachycardia with PACs
Echo: Mild LVH, EF 60-65%, dense MAC, mild to moderate mitral stenosis with a valve area of 0.23 and peak/mean gradient 26/10 mmHg, mildly dilated left atrium, 23 mm Ventura JONNA transcatheter aortic valve, peak/mean gradient 27/15 with trace
aortic regurgitation, mild TR, pulmonary artery systolic pressure 44
Impression: See below
Plan:
Continue diltiazem.
proBNP is only 307, implying there is not a cardiogenic component to dyspnea
Can consider dobutamine sestamibi study as outpatient, though utility is limited, patient is poor candidate for Lexiscan
Outpatient cardiac follow-up arranged.
Original Note:
Today's Communication / Plan
-
Stable from cardiac standpoint for discharge
Sent home on diltiazem 120 mg daily
Could consider eventual outpatient ischemic evaluation once patient's pulmonary status has improved
Outpatient cardiology follow-up has been arranged
Impression / Plan
-
Assessment:
Chest pain
Abnormal troponin, peak 0.043
COPD exacerbation
Sinus tachycardia
treated with TAVR 2019
Echo 10/08/2024: EF 60 to 65%. Mild concentric LVH. Stage I DD. Mild to moderate MS with peak/mean gradient 26/10 mmHg, MVA 2.3 cm2. 23 mm Ventura Jonna transcatheter aortic valve replacement. Peak/mean gradients across the aortic valve are 27/15
mmHg respectively. Trace aortic regurgitation. Mild TR with PAP 44 mmHg
Echocardiogram April 21, 2020 LVEF 55 to 60% #23 Ventura JONNA 3 bioprosthetic aortic valve with peak and mean gradients of 20 and 10 mmHg, no AI
Recommendations:
There has been no rise in troponin (initial troponin 0.043 followed by 0.037) and her ECG is essentially at baseline with no changes to suggest myocardial infarction or ischemia.
I am uncertain as to the etiology of her chest discomfort. Chest discomfort is subxiphoid. Suddenly occurred and suddenly resolved. Nonreproducible on physical exam
She tells me that for the past week or so she has had worsening exacerbation of COPD. She correlates this to an attempt to wean her steroids as an outpatient.
Chest pain is rather atypical within initially slightly elevated above normal troponin that has not increased on subsequent troponin and EKG that is not suggestive of myocardial infarction or coronary ischemia. Suspect nonischemic myocardial injury
secondary to COPD exacerbation
-Troponin values 0.043, 0.037, 0.033 (Serial electrocardiograms without ischemic changes).
-chest pain now resolved, not thought to be cardiac in origin. Can consider outpatient ischemic evaluation once patient's pulmonary status has stabilized as currently contraindicated with wheezing.
TAVR in 2019
Echocardiogram from 10/08/2024 shows preserved ejection fraction with stable aortic valve gradients and no significant regurgitation.
Continue SBE prophylaxis for TAVR and follow with serial echocardiograms
Sinus tachycardia which she describes as chronic
Likely physiologic and related to her underlying chronic lung disease which is O2 dependent as well as the role of her medical treatment which includes beta agonists
Avoid beta-reyna given her rather brittle COPD.
Her blood pressure was elevated on presentation so she was started her on a long-acting calcium channel reyna, Cardizem CD on October 06, 2024. Can be uptitrated as outpatient as blood pressure and heart rate allow
Regarding COPD, severe and in stage IV category, exacerbation of her baseline COPD
chronically on O2 3L and currently on 3 L of oxygen currently
Chest x-ray no acute evidence of infection.
Seen and evaluated by pulmonary who recommends ongoing treatment with prednisone 30 mg
Pulmonary recommending outpatient follow-up with full PFTs, 6-minute walk and low dose CT
proBNP 307. No evidence of volume overload or heart failure on examination or by laboratory studies
Plan discussed with nursing, hospitalist and patient. No cardiac reason to remain in hospital
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
Subjective
Date of Service: October 09, 2024
Patient seen and examined. Patient denies chest pain. Still feels short of breath and ongoing wheezing
Objective
Labs:
10/09/24 05:10
10/09/24 05:10
Labs
Hgb 10.5 g/dL (12.0-16.0) L 10/09/24 05:10
Hct 34.1 % (37.0-47.0) L 10/09/24 05:10
Plt Count 291 10^3/uL (130-400) 10/09/24 05:10
APTT Cancelled 10/07/24 14:35
Sodium 137 mmol/L (135-145) 10/09/24 05:10
Potassium 4.2 mmol/L (3.5-5.1) 10/09/24 05:10
BUN 20 mg/dl (7-17) H 10/09/24 05:10
Creatinine 0.5 mg/dL (0.6-1.0) L 10/09/24 05:10
Glucose 157 mg/dl (70-99) H 10/09/24 05:10
Troponins
10/06/24 10/06/24 10/06/24
16:16 19:00 22:00
Troponin I 0.033 Cancelled Cancelled
Vital Signs and I&O:
Vital Signs
Temp Pulse Resp BP Pulse Ox
98.7 F 104 17 172/72 96
10/09/24 15:37 10/09/24 15:37 10/09/24 15:37 10/09/24 15:37 10/09/24 15:37
Vital Signs
Temp Pulse Resp BP Pulse Ox
98.7 F 104 17 172/72 96
10/09/24 15:37 10/09/24 15:37 10/09/24 15:37 10/09/24 15:37 10/09/24 15:37
Intake & Output
10/07/24 10/08/24 10/09/24 10/10/24
06:59 06:59 06:59 06:59
Intake Total 720 / 720 480 / 480
Balance 720 / 720 480 / 480
Physical Exam
Physical Exam
GEN: No distress, awake, Ox3, sitting in bed wearing oxygen
HEENT: supple, anicteric, mmm
LUNGS: Diminished breath sounds bilaterally with some diffuse wheezing noted CTA, no crackles/rales; remains on 3 L of oxygen which is patient's baseline
CV: Reg, S1/S2, 1/6 syst LSB murmur, no rub or gallop
ABD: soft, BS+, NT/ND
EXT: No edema, clubbing or cyanosis
NEURO: Gross non-focal
SKIN: No rash, warm, dry, pink
[2024-10-09 16:53] VITALS: BP 146/99
[2024-10-09] MEDS: DELTASONE 10 MG PO (17:03)
--- NOTE | 2024-10-09 20:05 | PTCARENOTE ---
Addendum entered by Seble Rodriguez RN 10/09/24 20:06:
IV and tele taken off by mary CHAN.
Original Note:
Pt picked up by shasha macdonald. This RN helped pt go down to ED entrance. Pt d/c'd
--- NOTE | 2024-10-10 09:34 | CM ---
Late entry for 10/09/24
CM notified of [facility], called in by patient per nursing.
Later, after patient spoke with MD and family, patient decided to d/c home.
== END 2024-10-09 20:00 | disposition home or self-care (01) | DRG 191 ==
LOC: 3 WEST ACU 13:11
PROVIDERS: Internal Medicine Cardiovascular Disease; Registered Nurse; ADMITTING PHYSICIAN Family Medicine; ATTENDING PHYSICIAN Internal Medicine; CONSULT PHYSICIAN Internal Medicine; CONSULT PHYSICIAN Internal Medicine Cardiovascular Disease; EMERGENCY PHYSICIAN Student in an Organized Health Care Education/Training Program; FAMILY PHYSICIAN Family Medicine
DX: J44.1 Chronic obstructive pulmonary disease with (acute) exacerbation (principal); I5A Non-ischemic myocardial injury (non-traumatic); J96.11 Chronic respiratory failure with hypoxia; F17.210 Nicotine dependence, cigarettes, uncomplicated; D63.8 Anemia in other chronic diseases classified elsewhere; E87.6 Hypokalemia; G89.29 Other chronic pain; I08.0 Rheumatic disorders of both mitral and aortic valves; Z99.81 Dependence on supplemental oxygen; Z79.82 Long term (current) use of aspirin
CPT/HCPCS: 71046; 80048; 80053; 80061; 83036; 83735; 83880; 84484; 85025; 85027; 85730; 86803; 93005; 93306; 94640; 96374; 99291

== ENCOUNTER 2024-10-28 16:09 | Inpatient (IN) | payer MEDICARE, OTHER, SELFPAY ==
[2024-10-28] VITALS (9 sets, daily range): BP systolic 131–176; BP diastolic 58–98; BMI 24.3; BMI 24.6
--- NOTE | 2024-10-28 12:53 | ED.GENMED ---
History of Present Illness
General
Chief Complaint: Breathing Problem
Source: patient
Exam Limitations: none
Time Seen by Provider: 10/28/24 12:47
History of Present Illness
History of Present Illness:
See MDM
Past History
Past History
ED Past Medical History: COPD; Negative HTN, Hypercholesterolemia or NIDDM
ED Past Surgical History: Cardiac (TAVR) and Gynecological (Tubal ligation, vaginal cyst)
Social History
Tobacco: Former smoker
Alcohol: Daily (2-3 glasses of wine)
Drug: None
Personal:
Living: with family
Phy Exam
Physical Exam
Physical Exam:
See MDM
Scores
Heart Failure Risk
Heart Failure Risk Score: Not Applicable
Course
Orders/Labs/Results
Orders:
Orders
10/28/24 12:39
Electrocardiogram (*1) Urgent
Reason for Study: Chest Pain
Cardiac Monitoring- Treatment ONCE
EKG- Treatment ONCE
IV Insert/Care/Rem.- Treatment PRN
10/28/24 12:51
Dexamethasone Sod Phosphate [Decadron] 10 mg IV NOW STA
Ipratropium/Albuterol Sulfate [Duoneb] 3 ml INH R NOW STA
CR Chest Portable - 1 View Urgent
Comment:
Reason For Exam: SOB, hx COPD
Reason Study Needs to be Portable: Patient Unstable
10/28/24 12:58
COVID-19 Antigen Urgent
Source: Nasal Swab
Complete Blood Count/With Diff Urgent
Influenza A+B Rapid Molecular Urgent
ROB Source: Nasal Swab
Specimen Description:
10/28/24 12:59
Comprehensive Metabolic Panel Urgent
Troponin I Urgent
10/28/24 15:27
Ipratropium/Albuterol Sulfate [Duoneb] 3 ml INH R NOW STA
Abnormal Lab Results
10/28/24 10/28/24
12:58 12:59
RBC 3.87 L 10^6/uL
(4.20-5.40)
Hgb 11.6 L g/dL
(12.0-16.0)
MCHC 31.3 L g/dL
(33.0-37.0)
RDW 15.0 H %
(11.5-14.5)
Abs Immat Gran (auto) 0.1 H 10^3/uL
(0-0.05)
Absolute Monos (auto) 0.8 H 10^3/uL
(0.1-0.6)
Immature Gran % 0.8 H %
(0-0.5)
Potassium 3.2 L mmol/L
(3.5-5.1)
Chloride 90 L mmol/L
(98-107)
Carbon Dioxide 47 H mmol/L
(22-30)
Creatinine 0.5 L mg/dL
(0.6-1.0)
10/28/24 12:58
10/28/24 12:59
Vital Signs
Initial and Last Documented VS:
Initial Vital Signs
Temp
98.1 F
10/28/24 12:38
Last Documented Vital Signs
Temp Pulse Resp BP Pulse Ox
98.1 F 110 22 162/80 97
10/28/24 12:42 10/28/24 13:15 10/28/24 13:15 10/28/24 13:00 10/28/24 13:15
MDM/Problems Addressed
Differential Diagnosis Includes:
HPI and MDM Narrative:
69-year-old female presenting for evaluation of shortness of breath. She does have a history of COPD and is on 3 L nasal cannula chronically. She lost electricity last night and was without her oxygen for several hours. Patient is not sure how
long she was actually without her oxygen for. Her shortness of breath is worsened. She was recently admitted and was discharged on 30 mg of prednisone daily.
Patient is tachypneic and has conversational dyspnea. She does have expiratory wheezing throughout. Will give DuoNeb and IV Decadron. Will obtain chest x-ray but likely admit based on persistent symptoms despite 30 mg of prednisone daily
Physical exam
General: Mildly uncomfortable. Tachypnea
HEENT: protecting airway
Neck: appears supple
CV: No evidence of cyanosis. Tachycardic
Resp: No accessory muscle use. Expiratory wheezing. Tachypnea
Abd: Non-distended
Extremities: No deformities
Neuro: alert
Psych: Mildly anxious
Skin: Intact
Problems Addressed including Acute and Chronic Conditions affecting care:
1. COPD exacerbation
Acuity: acute
Prognosis: stable
Details: Potentially in the setting of not having oxygen overnight. Will give DuoNeb and IV steroids
Updates
After DuoNeb and IV steroids, patient feeling somewhat better but still tachypneic and short of breath.
Will give second DuoNeb and admit
Differential Diagnosis (but not limited to): Influenza, COVID-pneumonia, COPD exacerbation
Testing considered: D-dimer
Drug therapy (if applicable): OTC meds, please see d/c instruction regarding Rx drugs
Amount and/or Complexity of Data Reviewed
Clinical info obtained from: Patient
External data reviewed: Recently discharged on 30 mg of prednisone
Labs I independently reviewed (but not limited to): Troponin within normal limits, white blood cell count normal
Radiology: X-ray independently reviewed: Chest x-ray without obvious pneumonia
Pulse Ox: not hypoxic
EKG independently reviewed: Sinus tachycardia, leftward axis, no STEMI
Skin Care Instructor: Sinus rhythm
Critical Care: The high probability of a clinically significant, sudden or life threatening deterioration of the pulmonary system(s) required my full and direct attention, intervention and personal management. The aggregate critical care time was 35
minutes. This time is in addition to time spent performing reported procedures but includes the following:
[x] Data Review and interpretation
[x] Patient assessment and monitoring of vital signs
[x] Documentation
[x] Medication orders and management
Risk of Complication:
Social Determinants of health: Good social support
Discussed with other providers: Hospitalist
Escalation of Care includes Admit/Obs: Given persistent COPD exacerbation worsening shortness of breath, will admit
Occasional wrong word or 'sound a like' substitutions may have occurred due to the inherent limitations of voice recognition software. Read the chart carefully and recognize, using context, where substitutions have occurred.
*Critical Care Note
Total Time (30-74mins, 75-104mins- exclusive of procedures): 35 min
ED Attending Note
-
Portions of this chart may have been created with voice recognition software.� Occasional wrong word or��sound alike� substitutions may have occurred due to the inherent limitations of voice recognition software.
Discharge Plan
Departure
Patient Disposition: Admit
Date of Disposition: 10/28/24
Time of Disposition: 15:31
Admit to: Med/Surg
Presentation/result/management discussed w/ accepting MD/DO: Hospitalist
Discharge Problem:
COPD exacerbation
Prescriptions:
No Action
cetirizine [Zyrtec] 10 mg Tablet
10 mg PO DAILY
nicotine (polacrilex) 2 mg Lozenge
2 mg buccal DAILYPRN PRN (Reason: cravings)
aspirin 81 mg Tablet,Delayed Release (Dr/Ec)
81 mg PO DAILY
fluticasone furoate-vilanterol [Breo Ellipta] 200-25 mcg/dose Blister With Device
1 inh INHALATION R DAILY
albuterol sulfate 1.25 mg/3 mL Solution For Nebulization
1.25 mg inhalation R Q4HPRN PRN (Reason: sob/wheeze) Qty: 90 0RF
diltiazem HCl 120 mg Capsule,Extended Release 24hr
120 mg PO DAILY Qty: 30 0RF
ipratropium bromide 0.02 % Solution
0.5 mg inhalation R TID Qty: 90 0RF
Lactobac/Bifidobac [Visbiome]
2 cap PO DAILY Qty: 0 0RF
prednisone 10 mg tablet
30 mg PO DAILY Qty: 90 0RF
Referrals:
Trenton Lock DO [Family Provider] -
Interventions
Interventions:
*Risk Screen - Suicide Last Done: 10/28/24 12:39
*General Assessment Last Done: 10/28/24 12:39
*Neglect/Abuse Screening Last Done: 10/28/24 12:39
ED- Fall Risk Assessment Last Done: 10/28/24 12:41
*ED COVID-19 Vaccine History Last Done: 10/28/24 12:39
ED- Cardiac Assessment Last Done: 10/28/24 13:00
ED- Pulmonary Assessment Last Done: 10/28/24 13:00
Discharge Date and Time
Print Language: NEPALI
[2024-10-28] MEDS: DECADRON 10 MG IV (13:09)
[2024-10-28] MEDS: DUONEB 3 ML INH ×3 (13:10→20:26)
--- NOTE | 2024-10-28 13:12 | EDRN ---
Portable CXR done at stretcher side at this time.
[2024-10-28 13:25] LABS: ALT (SGPT) 28 U/L (0-35); AST (SGOT) 35 U/L (14-36); Albumin 3.8 g/dl (3.5-5.0); Alkaline Phosphatase 100 U/L (38-126); Blood Urea Nitrogen 17 mg/dl (7-17); Calcium 8.6 mg/dl (8.4-10.2); Chloride 90 mmol/L (98-107); Estimated Creatinine Clearance 63 ml/min; Glucose 90 mg/dl (70-99); Potassium 3.2 mmol/L (3.5-5.1); Sodium 140 mmol/L (135-145); Total Bilirubin 0.5 mg/dl (0.2-1.3); Total Protein 6.6 g/dl (6.3-8.2); eGFR > 60.00
[2024-10-28 13:28] LABS: % Basophils 0.3 % (0-2); % Eosinophils 1.5 % (0-6); % Immature Granulocytes 0.8 % (0-0.5); % Lymphocytes 23.5 % (20.5-51.1); % Monocytes 9.3 % (1.7-9.3); % Neutrophils 64.6 % (42.2-75.2); Absolute Eosinophils 0.1 10^3/uL (0-0.7); Absolute Immature Granulocytes 0.1 10^3/uL (0-0.05); Absolute Monocytes 0.8 10^3/uL (0.1-0.6); Absolute Neutrophils 5.5 10^3/uL (1.4-6.5); Hematocrit 37.1 % (37.0-47.0); Hemoglobin 11.6 g/dL (12.0-16.0); Mean Corp Hgb Conc. 31.3 g/dL (33.0-37.0); Mean Corpuscular Volume 95.9 fL (81.0-99.0); Mean Platelet Volume 8.6 fL (7.4-10.4); Nucleated Red Blood Cells % 0 %; Platelet Count 274 10^3/uL (130-400); Red Blood Cell Count 3.87 10^6/uL (4.20-5.40); White Blood Cell Count 8.6 10^3/uL (4.8-10.8)
[2024-10-28 13:36] LABS: Troponin I 0.022 ng/ml
[2024-10-28 13:37] LABS: COVID-19 Antigen Negative (Negative)
[2024-10-28 14:18] LABS: Carbon Dioxide 47 mmol/L (22-30)
--- NOTE | 2024-10-28 15:26 | EDRN ---
Dr. Uriostegui in room w/ pt at this time.
--- NOTE | 2024-10-28 15:45 | EDRN ---
Dr. Feliciano in room w/pt at this time.
--- NOTE | 2024-10-28 15:45 | EDRN ---
L chest/lung pain in posterior L mid back and hurts when breathes in.
--- NOTE | 2024-10-28 15:54 | HPS.HSE ---
Family Physician
-
Family Physician: Trenton Lock
Chief Complaint
-
shortness of breath
History of Present Illness
69-year-old female past medical history of aortic stenosis status post TAVR, chronic hypoxemic respite failure secondary to COPD on 3 L baseline, sinus tachycardia, presenting with shortness of breath since yesterday. She was feeling unwell
yesterday. She has been complaining of slightly productive cough and swollen glands in her neck. She complains of some slight swelling in her right foot. Denies chest pain. Has been complaining of pain in her left back for the past 3 days which
is worse with breathing. She thinks it is a pulled muscle. She denies chest pain. He denies fevers or chills.
Her electricity turned off last night and she did not have access to her 3 L chronic O2 but has been feeling unwell even prior to this incident.
She does not smoke currently. She drinks 2 glasses of wine per night.
Medical History
Past Medical History
Past Medical History: Reports Other (aortic stenosis status post TAVR, chronic hypoxemic respite failure secondary to COPD on 3 L baseline, sinus tachycardia,)
Past Surgical History: Reports Other (Cardiac (TAVR) and Gynecological (Tubal ligation, vaginal cyst))
Social History
Tobacco: Former Smoker
Alcohol: Daily
Drug: None
Family History
Family History: Not pertinent
Allergies / Home Medications
Allergies reflects when Allergies were last updated in [email or web address].
Home Medications with original date entered in [email or web address]
Allergy/Medication List:
Allergies
Allergy/AdvReac Type Severity Reaction Status Date / Time
doxylamine Allergy Shortness Verified 10/28/24 15:48
of Breath
levalbuterol Allergy could not Verified 10/28/24 15:49
breathe
Penicillins Allergy Anaphylaxis Verified 10/28/24 15:48
orris root Allergy Shortness Uncoded 10/28/24 15:48
of Breath
xopenex AdvReac Unknown Unknown Uncoded 10/28/24 15:48
Home Medications
cetirizine 10 mg tablet (Zyrtec) 10 mg PO DAILY Allergies 08/24/24
nicotine (polacrilex) 2 mg buccal lozenge 2 mg buccal DAILYPRN PRN cravings 08/26/24
aspirin 81 mg tablet,delayed release 81 mg PO DAILY Blood Clot Prevention/Tx 09/14/24
fluticasone furoate 200 mcg-vilanterol 25 mcg/dose inhalation powder (Breo Ellipta) 1 inh inhalation R DAILY Lung/Breathing Issues 09/14/24
Lactobac/Bifidobac [Visbiome] 2 cap PO DAILY ##0 10/09/24
albuterol sulfate 1.25 mg/3 mL solution for nebulization 1.25 mg (3 mL) inhalation R Q4HPRN PRN sob/wheeze #90 mL 10/09/24
diltiazem HCl 120 mg capsule,extended release 24 hr 120 mg PO DAILY #30 caps 10/09/24
ipratropium bromide 0.02 % solution for inhalation 0.5 mg (2.5 mL) inhalation R TID #90 doses 10/09/24
prednisone 10 mg tablet 30 mg (3 x 10 mg) PO DAILY #90 tabs 10/09/24
Review of Systems
-
History Source: Patient
A 12 point ROS was completed and negative except as noted: Yes
Constitutional: Reports No Symptoms
EENT: Reports No Symptoms
Respiratory: Reports See HPI
Cardiac: Reports No Symptoms
Abdomen/GI: Reports No Symptoms
: Reports No Symptoms
Musculoskeletal: Reports No Symptoms
Skin: Reports No Symptoms
Neurological: Reports No Symptoms
Endocrine: Reports No Symptoms
Hematologic/Lymphatic: Reports No Symptoms
Psych: Reports No Symptoms
Physical Exam
Vital Signs
Vital Signs
Temp Pulse Resp BP Pulse Ox
98.1 F 101 20 163/73 100
10/28/24 12:42 10/28/24 15:15 10/28/24 15:15 10/28/24 15:00 10/28/24 14:45
Physical Exam
General: Well Developed, Well Nourished and No Apparent Distress
HEENT: NormoCephalic, Moist mucous membranes and Atraumatic
Respiratory: Wheezes
Cardiac: S1/S2 and Regular Rhythm; No Murmur or Rub
GI: Soft, Non Tender, Non Distended and Normal Bowel Sounds; No Organomegaly
Rectal: Deferred by Provider
Musculoskeletal: No Clubbing, No Cyanosis and No Edema
Skin: No Rash
Neuro: Nonfocal/grossly intact
Laboratory Results
-
10/28/24 12:58
10/28/24 12:59
Laboratory Results
Total Bilirubin 0.5 mg/dl (0.2-1.3) 10/28/24 12:59
AST 35 U/L (14-36) 10/28/24 12:59
ALT 28 U/L (0-35) 10/28/24 12:59
Alkaline Phosphatase 100 U/L (38-126) 10/28/24 12:59
Troponin I 0.022 ng/ml 10/28/24 12:59
Data Reviewed
-
Lab Data: Labs Reviewed by me
Old Records: Reviewed
Impression/Plan
-
IMPRESSION:
PLAN:
# Acute on chronic COPD exacerbation
# Chronic hypoxemic respiratory deficiency on 3 L
-Chest x-ray shows mild bibasilar interstitial opacities, left greater than right which could represent bronchitis or atelectasis
-DuoNebs every 6 hours
-Dexamethasone 4 mg every 12
-Azithromycin
# Left posterior back pain could be musculoskeletal versus secondary to COPD
-Check D-dimer
Former smoker
Aortic stenosis status post TAVR
-Continue aspirin
History of sinus tachycardia
Chronic lower back pain
History of lung nodules
History of cataract surgery
History of tubal ligation
DNR
DVT prophylaxis�heparin
Regular diet
--- NOTE | 2024-10-28 15:55 | EDRN ---
Pt administered a boxed lunch at this time.
--- NOTE | 2024-10-28 17:25 | EDRN ---
D-Dimer was redrawn for quantity insufficient per lab at this time.
--- NOTE | 2024-10-28 17:30 | EDRN ---
Pt's room exceedingly hot and pt requested and was given a fan in her room.
--- NOTE | 2024-10-28 17:45 | EDRN ---
When this RN notified floor that report was sent, she requested humdified oxygen set up for pt that pt had just requested.
--- NOTE | 2024-10-28 17:50 | EDRN ---
Javier rec completed and Dr. Feliciano was tiger texted and verbally told as he was on his way to a pt's room.
[2024-10-28 17:56] LABS: D-Dimer 0.36 ug/mlFEU (0.00-0.50)
[2024-10-28] MEDS: DUONEB INH (18:33)
[2024-10-28] MEDS: ZITHROMAX INFUSION 250 IV (20:42)
[2024-10-28] MEDS: KCL 40 MEQ PO (20:42)
[2024-10-28] MEDS: FLUSH (NSS) 2 FLUSH IV (20:46)
[2024-10-29] MEDS: DECADRON 4 MG IV (05:16)
[2024-10-29] MEDS: FLUSH (NSS) 2 FLUSH IV ×3 (05:17→22:43)
[2024-10-29 07:05] VITALS: BP 157/76
[2024-10-29] MEDS: DUONEB 3 ML INH ×4 (07:32→22:07)
[2024-10-29] MEDS: NON-FORMULARY ITEM 1 UNIT INH (07:32)
[2024-10-29] MEDS: ZYRTEC 10 MG PO (08:01)
[2024-10-29] MEDS: ASPIR LOW (ENTERIC COATED) 81 MG PO (08:01)
[2024-10-29] MEDS: SOLU-MEDROL PF 60 MG IV ×3 (09:41→22:40)
--- NOTE | 2024-10-29 10:49 | PTCARENOTE ---
Pt refusing cardizem this AM as well as AM labs. notified.
[2024-10-29 10:55] LABS: % Immature Granulocytes 0.6 % (0-0.5); % Lymphocytes 5.5 % (20.5-51.1); % Neutrophils 89.9 % (42.2-75.2); Absolute Lymphocytes 0.4 10^3/uL (1.2-3.4); Absolute Monocytes 0.3 10^3/uL (0.1-0.6); Absolute Neutrophils 6.1 10^3/uL (1.4-6.5); Hematocrit 34.7 % (37.0-47.0); Hemoglobin 10.9 g/dL (12.0-16.0); Mean Corp Hgb Conc. 31.4 g/dL (33.0-37.0); Mean Corpuscular Hgb 29.9 pg (27.0-31.0); Mean Corpuscular Volume 95.1 fL (81.0-99.0); Mean Platelet Volume 8.6 fL (7.4-10.4); Nucleated Red Blood Cells % 0 %; Platelet Count 267 10^3/uL (130-400); Red Blood Cell Count 3.65 10^6/uL (4.20-5.40); Red Cell Dist. Width 14.6 % (11.5-14.5); White Blood Cell Count 6.8 10^3/uL (4.8-10.8)
[2024-10-29 12:41] LABS: Blood Urea Nitrogen 16 mg/dl (7-17); Carbon Dioxide 40 mmol/L (22-30); Chloride 89 mmol/L (98-107); Estimated Creatinine Clearance 63 ml/min; Glucose 234 mg/dl (70-99); Potassium 4.6 mmol/L (3.5-5.1); Sodium 135 mmol/L (135-145); eGFR > 60.00
--- NOTE | 2024-10-29 13:50 | W.PN.HOSP.TC ---
Today's Communication/Plan
-
solumedrol
duonebs
azithro
Assessment / Plan
Assessment / Plan
Physical Exam
General: Well Developed, Well Nourished and No Apparent Distress
HEENT: NormoCephalic, Moist mucous membranes and Atraumatic
Respiratory: Wheezes, expiratory
Cardiac: S1/S2 and Regular Rhythm; No Murmur or Rub
GI: Soft, Non Tender, Non Distended and Normal Bowel Sounds; No Organomegaly
Rectal: Deferred by Provider
Musculoskeletal: No Clubbing, No Cyanosis and No Edema
Skin: No Rash
Neuro: Nonfocal/grossly intact
# Acute on chronic COPD exacerbation
# Chronic hypoxemic respiratory deficiency on 3 L
-Chest x-ray shows mild bibasilar interstitial opacities, left greater than right which could represent bronchitis or atelectasis
-DuoNebs every 6 hours
-Switch to solumedrol
-Azithromycin
# Left posterior back pain could be musculoskeletal versus secondary to COPD
-appears to be chronic and msk
-outpatient f/u
Former smoker
Aortic stenosis status post TAVR
-Continue aspirin
History of sinus tachycardia
Chronic lower back pain
History of lung nodules
History of cataract surgery
History of tubal ligation
DNR
DVT prophylaxis�heparin
Regular diet
Anticipated Discharge: 24 - 48 hours
Subjective/Interval History
-
Date of Service: October 29, 2024
Audible wheezing, upon expiration
Objective Data
-
Labs:
Laboratory Results
10/29/24
10:40
WBC 6.8
Hgb 10.9 L
Hct 34.7 L
Plt Count 267
Sodium 135
Potassium 4.6 D
Chloride 89 L
Carbon Dioxide 40 H
BUN 16
Creatinine 0.4 L
Glucose 234 H
Calcium 9.0
Vital Signs:
Vital Signs
Temp Pulse Resp BP Pulse Ox
98.2 F 84 20 157/76 98
10/29/24 07:05 10/29/24 07:37 10/29/24 11:31 10/29/24 07:05 10/29/24 11:31
I&O
10/28/24 10/29/24 10/30/24
06:59 06:59 06:59
Intake Total 720 / 720
Balance 720 / 720
Review of Systems
-
History Source: Patient
All other systems: Not reviewed unless documented
Physical Exam
-
General: No Apparent Distress
HEENT: PERRLA
Respiratory: Clear to Auscultation
Cardiac: Regular Rhythm and S1/S2
GI: Soft and Nontender
Musculoskeletal: No Edema
Skin: Warm and Dry; Negative Rash
Neuro: AO x 3
Psych: Calm
Data Reviewed
-
Diagnostic Radiology: Report Reviewed by me
Labs: Labs Reviewed by me
[2024-10-29 15:05] VITALS: BP 134/52
[2024-10-29] MEDS: DUONEB INH (19:30)
[2024-10-29] MEDS: ZITHROMAX INFUSION 250 IV (19:56)
[2024-10-29 22:49] VITALS: BP 165/82
[2024-10-30] MEDS: SOLU-MEDROL PF 60 MG IV ×4 (04:20→23:29)
[2024-10-30 07:26] VITALS: BP 144/65
[2024-10-30 08:01] LABS: Hematocrit 35.2 % (37.0-47.0); Hemoglobin 11.3 g/dL (12.0-16.0); Mean Corp Hgb Conc. 32.1 g/dL (33.0-37.0); Mean Corpuscular Hgb 29.8 pg (27.0-31.0); Mean Corpuscular Volume 92.9 fL (81.0-99.0); Mean Platelet Volume 9.5 fL (7.4-10.4); Platelet Count 267 10^3/uL (130-400); Red Blood Cell Count 3.79 10^6/uL (4.20-5.40); Red Cell Dist. Width 14.6 % (11.5-14.5); White Blood Cell Count 12.1 10^3/uL (4.8-10.8)
--- NOTE | 2024-10-30 08:10 | PTCARENOTE ---
Pt refused Cardizem. Pt stated, 'It makes my heart rate too low which makes it more difficult for me to breathe'. made aware.
[2024-10-30] MEDS: ZYRTEC 10 MG PO (08:13)
[2024-10-30] MEDS: ASPIR LOW (ENTERIC COATED) 81 MG PO (08:13)
[2024-10-30] MEDS: DUONEB 3 ML INH ×3 (08:21→15:48)
[2024-10-30] MEDS: NON-FORMULARY ITEM 1 UNIT INH (08:21)
--- NOTE | 2024-10-30 11:00 | PTCARENOTE ---
Pt requested nasal saline spray. made aware.
[2024-10-30 11:28] LABS: Blood Urea Nitrogen 16 mg/dl (7-17); Calcium 9.1 mg/dl (8.4-10.2); Carbon Dioxide 40 mmol/L (22-30); Chloride 94 mmol/L (98-107); Estimated Creatinine Clearance 63 ml/min; Glucose 195 mg/dl (70-99); Potassium 4.6 mmol/L (3.5-5.1); Sodium 137 mmol/L (135-145); eGFR > 60.00
--- NOTE | 2024-10-30 13:03 | W.PN.HOSP.TC ---
Today's Communication/Plan
-
wean steroids
trial lower dose cardizem
Assessment / Plan
Assessment / Plan
Physical Exam
General: Well Developed, Well Nourished and No Apparent Distress
HEENT: NormoCephalic, Moist mucous membranes and Atraumatic
Respiratory: Wheezes, expiratory
Cardiac: S1/S2 and Regular Rhythm; No Murmur or Rub
GI: Soft, Non Tender, Non Distended and Normal Bowel Sounds; No Organomegaly
Rectal: Deferred by Provider
Musculoskeletal: No Clubbing, No Cyanosis and No Edema
Skin: No Rash
Neuro: Nonfocal/grossly intact
# Acute on chronic COPD exacerbation
# Chronic hypoxemic respiratory deficiency on 3 L
-Chest x-ray shows mild bibasilar interstitial opacities, left greater than right which could represent bronchitis or atelectasis
-DuoNebs every 6 hours
-Switch to solumedrol - change to q8h
-Azithromycin
#Leukocytosis
-monitor cbc, probably due to steroids
-monitor fever curve
# Left posterior back pain could be musculoskeletal versus secondary to COPD
-appears to be chronic and msk
-outpatient f/u
#Sinus tachycardia
- was on diltiazem, patient refusing for now unless lower dose, will attempt
Former smoker
Aortic stenosis status post TAVR
-Continue aspirin
History of sinus tachycardia
Chronic lower back pain
History of lung nodules
History of cataract surgery
History of tubal ligation
DNR
DVT prophylaxis�heparin
Regular diet
Anticipated Discharge: 24 - 48 hours
Subjective/Interval History
-
Date of Service: October 30, 2024
no acute events
Objective Data
-
Labs:
Laboratory Results
10/30/24 10/30/24
07:30 10:06
WBC 12.1 H
Hgb 11.3 L
Hct 35.2 L
Plt Count 267
Sodium Cancelled 137
Potassium Cancelled 4.6
Chloride Cancelled 94 L
Carbon Dioxide Cancelled 40 H
BUN Cancelled 16
Creatinine Cancelled 0.4 L
Glucose Cancelled 195 H
Calcium Cancelled 9.1
Vital Signs:
Vital Signs
Temp Pulse Resp BP Pulse Ox
98.4 F 91 16 144/65 100
10/30/24 07:26 10/30/24 11:47 10/30/24 11:47 10/30/24 07:26 10/30/24 11:47
I&O
10/29/24 10/30/24 10/31/24
06:59 06:59 06:59
Intake Total 970 / 970 1819
Balance 970 / 970 1819
Review of Systems
-
History Source: Patient
All other systems: Not reviewed unless documented
Physical Exam
-
General: No Apparent Distress
HEENT: PERRLA
Respiratory: Clear to Auscultation
Cardiac: Regular Rhythm and S1/S2
GI: Soft and Nontender
Musculoskeletal: No Edema
Skin: Warm and Dry; Negative Rash
Neuro: AO x 3
Psych: Calm
Data Reviewed
-
Diagnostic Radiology: Report Reviewed by me
Labs: Labs Reviewed by me
[2024-10-30] MEDS: OCEAN, SALINE MIST 2 SPRAYS NASAL ×2 (14:31→17:52)
--- NOTE | 2024-10-30 14:31 | PN.CDI ---
CDI
- -
CDI:
Physician Documentation Request
Admit Date: 10/28/24 16:09
Dear Doctor Mendy,
Patient was admitted with COPD exacerbation.
K levels documented below:
Potassium chloride IV given x1 dose on 10/28.
Laboratory Tests
10/28/24 10/29/24 10/30/24
12:59 10:40 10:06
Potassium 3.2 L 4.6 D 4.6
Based on the above, please clarify in the progress notes, the appropriate diagnosis, if significant, that supports the above abnormalities and additional evaluation, monitoring and/or treatment rendered:
Hypokalemia
Insignificant abnormal lab finding
Other
Use of terms such as suspected, likely, concern for, or probable (associated with a specific diagnosis that is being evaluated, monitored, or treated as if it exists) are acceptable and can be coded in the inpatient setting, when documented at the
time of discharge.
Thank you,
Catherine ALMONTE,RN,CCDS
CDI Specialist
Available via [place] text
Please use your independent medical judgment in providing your response.
--- NOTE | 2024-10-30 14:37 | PTCARENOTE ---
Pt refused Cardizem. Pt informed that dose is lower than previous dose. Pt informed this RN, 'I will not take that medication until my breathing improves because it affected my breathing the last time I took it'. made aware.
[2024-10-30] MEDS: CARDIZEM SR PO ×2 (14:38→20:26)
--- NOTE | 2024-10-30 14:43 | PN.CDI ---
CDI
- -
CDI:
Physician Documentation Request
Admit Date: 10/28/24 16:09
Dear Doctor Mendy,
Patient was admitted with COPD exacerbation.
ED note, 'She does have a history of COPD and is on 3 L nasal cannula chronically.'
10/30 PN, 'Chronic hypoxemic respiratory deficiency on 3 L.'
Please provide your note the diagnosis associated with chronic oxygen use:
Chronic hypoxic respiratory failure
Hypoxia only
Other
Use of terms such as suspected, likely, concern for, or probable (associated with a specific diagnosis that is being evaluated, monitored, or treated as if it exists) are acceptable and can be coded in the inpatient setting, when documented at the
time of discharge.
Thank you,
Catherine ALMONTE,RN,CCDS
CDI Specialist
Available via [place] text
Please use your independent medical judgment in providing your response.
[2024-10-30 15:10] VITALS: BP 154/77
[2024-10-30] MEDS: DUONEB INH (19:24)
[2024-10-30] MEDS: ZITHROMAX INFUSION 250 IV (20:20)
[2024-10-30] MEDS: CARDIZEM SR 60 MG PO (21:18)
[2024-10-30 23:05] VITALS: BP 156/93
[2024-10-31] VITALS (41 sets, daily range): BP systolic 92–198; BP diastolic 42–94; PULSE 2–103; BMI 24.7
[2024-10-31] MEDS: DUONEB 3 ML INH ×4 (00:28→15:28)
[2024-10-31] MEDS: NON-FORMULARY ITEM INH ×2 (07:49→08:48)
[2024-10-31] MEDS: ASPIR LOW (ENTERIC COATED) 81 MG PO (08:15)
[2024-10-31] MEDS: CARDIZEM SR 60 MG PO (08:15)
[2024-10-31] MEDS: ZYRTEC 10 MG PO (08:15)
[2024-10-31] MEDS: SOLU-MEDROL PF 60 MG IV ×2 (08:16→13:49)
--- NOTE | 2024-10-31 08:25 | PTCARENOTE ---
Pt c/o increased shortness of breathe. Respiratory at bedside. HR increased, 100's-110's. Pt able to take morning medications with spoonful of yogurt. AAOx3, tremors. Approximately 10 minutes later, pt tremors increased, not responding to verbal or
sternal rub, and eyes gazing toward right wall. Increasingly dyspneic, skin mottled. Rapid response called. Rapid response team at bedside. Labs obtained, pt transported to CT. Critical HCO2=45.9, PCO=>115, pH=7.13, venous PCO2=98, troponin=0.042.
made aware. Pt received back from CT. Rapid response nurses at bedside, pt tx to ICU. Report provided to ICU.
[2024-10-31 08:26] LABS: Hematocrit 36.1 % (37.0-47.0); Hemoglobin 11.1 g/dL (12.0-16.0); Mean Corp Hgb Conc. 30.7 g/dL (33.0-37.0); Mean Corpuscular Hgb 29.8 pg (27.0-31.0); Mean Corpuscular Volume 96.8 fL (81.0-99.0); Mean Platelet Volume 9.1 fL (7.4-10.4); Platelet Count 370 10^3/uL (130-400); Red Blood Cell Count 3.73 10^6/uL (4.20-5.40); Red Cell Dist. Width 14.7 % (11.5-14.5)
[2024-10-31 08:28] LABS: Glucose - Point of Care 168 mg/dl (70-99)
[2024-10-31] MEDS: NSS (PRESERVATIVE FREE) 1 ML IV (08:37)
[2024-10-31] MEDS: ATIVAN 2 MG IV (08:37)
[2024-10-31 08:50] LABS: Hematocrit 38.1 % (37.0-47.0); Hemoglobin 11.6 g/dL (12.0-16.0); Mean Corp Hgb Conc. 30.4 g/dL (33.0-37.0); Mean Corpuscular Hgb 29.9 pg (27.0-31.0); Mean Corpuscular Volume 98.2 fL (81.0-99.0); Mean Platelet Volume 8.6 fL (7.4-10.4); Platelet Count 354 10^3/uL (130-400); Red Blood Cell Count 3.88 10^6/uL (4.20-5.40); Red Cell Dist. Width 14.7 % (11.5-14.5); White Blood Cell Count 18.1 10^3/uL (4.8-10.8)
[2024-10-31 08:53] LABS: B.E. 12.2 mmol/L; O2 Saturation % 98.8 % (94-98); PO2 235 mmHg (83-108)
[2024-10-31 08:55] LABS: ALT (SGPT) 27 U/L (0-35); AST (SGOT) 31 U/L (14-36); Albumin 4.4 g/dl (3.5-5.0); Alkaline Phosphatase 99 U/L (38-126); Blood Urea Nitrogen 15 mg/dl (7-17); Chloride 90 mmol/L (98-107); Estimated Creatinine Clearance 63 ml/min; Glucose 145 mg/dl (70-99); Potassium 4.1 mmol/L (3.5-5.1); Sodium 136 mmol/L (135-145); Total Bilirubin 0.7 mg/dl (0.2-1.3); Total Protein 6.7 g/dl (6.3-8.2); eGFR > 60.00
[2024-10-31 08:57] LABS: pH 7.13 (7.35-7.45)
[2024-10-31 08:58] LABS: HCO3 45.9 mmol/L (21-28); PCO2 > 115 mmHg (32-35)
[2024-10-31 09:00] LABS: APTT 21.9 Sec (23.4-35.0); INR 0.91; PT 12.8 Sec (11.4-14.6)
[2024-10-31 09:05] LABS: Carbon Dioxide 36 mmol/L (22-30)
[2024-10-31 09:13] LABS: Venous Blood Gas B.E. 12.3 mmol/L (-4 to +4); Venous Blood Gas O2 Sat % 97.9 %; Venous Blood Gas O2 Therapy 100; Venous Blood Gas pH 7.25 (7.32-7.43); Venous Blood Gas pO2 185 mmHg (30-50)
[2024-10-31 09:16] LABS: Venous Blood Gas pCO2 98 mmHg (35-48)
[2024-10-31 09:23] LABS: Troponin I 0.042 ng/ml
[2024-10-31 09:25] LABS: ALT (SGPT) 26 U/L (0-35); AST (SGOT) 30 U/L (14-36); Albumin 4.1 g/dl (3.5-5.0); Alkaline Phosphatase 96 U/L (38-126); Blood Urea Nitrogen 17 mg/dl (7-17); Calcium 8.7 mg/dl (8.4-10.2); Chloride 87 mmol/L (98-107); Estimated Creatinine Clearance 63 ml/min; Glucose 197 mg/dl (70-99); Potassium 4.3 mmol/L (3.5-5.1); Sodium 137 mmol/L (135-145); Total Bilirubin 0.6 mg/dl (0.2-1.3); Total Protein 6.4 g/dl (6.3-8.2); eGFR > 60.00
--- NOTE | 2024-10-31 09:41 | PTCARENOTE ---
Received pt post [employer]. She arrived with BiPap 20/6 with 4 liters oxygen. She is unresponsive, flaccid. Did draw arms up with sternal rub. Bilateral IV's flush and patent. Mottled L/E's. Skin cool and dry. Poor capillary refill. Breath sounds absent
posteriorly. SpO2 88%. Oxygen increased to 6 liters by RPT for spo2 87% with agonal respirations. Pupils pinpoint and sluggishly reactive. Scabs noted on her buttocks & right lateral forearm. Reviewed the plan of care with Dr. Brooke who was
present at the time of the pt's arrival. Pts Moody is notified and en route.
[2024-10-31 09:51] LABS: Lactic Acid 1.3 mmol/L (0.7-2.0)
[2024-10-31 09:54] LABS: Carbon Dioxide 38 mmol/L (22-30)
--- NOTE | 2024-10-31 10:01 | CON.PUL ---
Consultation
Consultation Request
Date/Time Consultation Requested: 10/31/24
Date/Time Consultation Performed: 10/31/24
Performing Provider: Monae
Reason for Consultation: Acute resp failure on BIPAP
Medical History
-
History of Present Illness:
Patient is a 69-year-old female past medical history of very severe COPD on baseline O2 3L/chronic prednisone (outpatient palliative care), aortic stenosis status post TAVR, presenting with shortness of breath since day [employer] SUPER[employer]. Had associated malaise,
mild productive cough, swollen glands in her neck, swelling in her right foot, pain in her left back for the past 3 days. Of note, her electricity turned off at home day [employer] SUPER[employer] and she did not have access to her 3 L chronic O2, so she was noted to be
possibly hypoxemic at home.
Admitted 10/28/24 for presumed AECOPD, her last admission for this was on 10/09/24. She is symptomatic when her prednisone is weaned below 20mg. Follows with Dr Julio in the office.
Last FEV1 in office noted to be 0.3L and 18% predicted. She has been recommended to seek transplant evaluation at another center but never followed through.
She drinks 2 glasses of wine per night.
Became acutely unresponsive 10/31/24, had rapid response called. ABG obtained showing pH 7.13-CO2 >115. Given ativan x 1 for presumed seizure with witnessed myoclonic jerks. She is transferred to IMU for continuous bipap. She is notably DNR/DNI.
Past Medical History
Past Medical History: Other (see list below)
Social History
Tobacco: Former Smoker
Alcohol: Daily
Drug: None
Family History
Family History: Reviewed & Not Pertinent
Allergies / Home Medications
Allergies
Allergy/AdvReac Type Severity Reaction Status Date / Time
doxylamine Allergy Shortness Verified 10/28/24 15:48
of Breath
levalbuterol Allergy could not Verified 10/28/24 15:49
breathe
Penicillins Allergy Anaphylaxis Verified 10/28/24 15:48
orris root Allergy Shortness Uncoded 10/28/24 15:48
of Breath
xopenex AdvReac Unknown Unknown Uncoded 10/28/24 15:48
Home Medications
�Medication �Instructions �Recorded �Confirmed �Last Taken �Type
cetirizine 10 mg tablet (Zyrtec) 10 mg PO DAILY Allergies 08/24/24 10/30/24 10/27/24 History
nicotine (polacrilex) 2 mg buccal 2 mg buccal DAILYPRN PRN nicotine 08/26/24 10/30/24 10/28/24 History
lozenge cravings
fluticasone furoate 200 1 inh inhalation R DAILY 09/14/24 10/28/24 10/27/24 History
mcg-vilanterol 25 mcg/dose Lung/Breathing Issues
inhalation powder (Breo Ellipta)
sodium chloride 5 % eye ointment 1 applic ophthalmic (eye) BID PRN 10/28/24 10/27/24 History
(Cameron 128) dry eyes
aspirin 81 mg chewable tablet 81 mg PO DAILY Blood Clot 10/30/24 10/30/24 Unknown History
Prevention/Tx
ipratropium 0.5 mg-albuterol 3 mg 3 ml inhalation QIDPRN PRN 10/30/24 10/30/24 Unknown History
(2.5 mg base)/3 mL nebulization wheezing/SOB
soln
levalbuterol tartrate 45 1 inh inhalation Q6HPRN PRN 10/30/24 10/30/24 Unknown History
mcg/actuation aerosol inhaler wheezing
multivitamin with minerals-folic 1 tab PO DAILY Supplement 10/30/24 10/30/24 Unknown History
acid 200 mcg chewable tablet
(Multivitamin Gummies)
prednisone 10 mg tablet 30 mg PO DAILY Anti-Inflammatory 10/30/24 10/28/24 10/27/24 History
Review of Systems
-
Unable to Obtain full review of systems at this time due to: Acuity
History Source: Family and Transfer Record
Vitals / Labs / Diagnostic Testing
Vital Signs
Temp Pulse Resp BP Pulse Ox
97.4 F 113 18 198/79 97
10/31/24 09:44 10/31/24 08:15 10/31/24 07:53 10/31/24 08:15 10/31/24 07:53
Lab Data
10/31/24 08:31
10/31/24 09:06
Laboratory Results
10/31/24 10/31/24
08:31 08:37
PT 12.8
INR 0.91
APTT 21.9 L
pH 7.13 L*
pCO2 > 115 H*
pO2 235 H
HCO3 45.9 H*
O2 Delivery Level
Microbiology
10/28/24 12:58 Nasal Swab Influenza Types A & B (ELIZABETH) - Final
Negative for Influenza A & B, NAAT
Negative results must be combined with clinical observations
and patient history.
Nucleic Acid Amplification test (NAAT)performed on the
Forrst platform.
Diagnostic Testing:
Physical Exam
-
HEENT: Normocephalic, Anicteric and Moist Mucous Membranes
Cardiovascular: S1/S2 and Regular Rhythm
Respiratory: Clear and Accessory Resp Muscle Use (w/ BIPAP on)
GI: Soft, Non Distended and Non Tender
Neurology: Other (unresponsive, minimally arousable, grimace to sternal rub)
Skin: Warm and Dry
General: Poor Appetite and Other (unresponsive)
Assessment
-
Patient is a 69-year-old female past medical history of very severe COPD on baseline O2 3L/chronic prednisone (outpatient palliative care), aortic stenosis status post TAVR, presenting with shortness of breath since day [employer] SUPER[employer]. Had associated malaise,
mild productive cough, swollen glands in her neck, swelling in her right foot, pain in her left back for the past 3 days. Of note, her electricity turned off at home day [employer] SUPER[employer] and she did not have access to her 3 L chronic O2, so she was noted to be
possibly hypoxemic at home. Admitted 10/28/24 for presumed AECOPD, her last admission for this was on 10/09/24. Became acutely unresponsive 10/31/24, had rapid response called. ABG obtained showing pH 7.13-CO2 >115. Given ativan x 1 for presumed
seizure with witnessed myoclonic jerks. She is transferred to IMU for continuous BiPAP. WE are consulted for eval 10/31/24.
Acute on chronic hypoxic and hypercarbic respiratory failure on c BIPAP
Obtundation due to CO2
Possible seizure, given Ativan x 1
Daily ETOH use, 1 glass of wine/nightly, possible w/d
AECOPD
Acute on chronic SOB
L basilar infilrate, HCAP vs aspiration
Conditions present [employer] SUPER[employer]OR
Very severe COPD-Gold stage IV-FEV1 0.3L 18%
Follows Dr Julio
On chronic O2 use, Maintained on chronic prednisone 20mg daily
100 year pack smoking history, ongoing
Tobacco abuse, ongoing currently 18 cigarettes a day
s/p TAVR 2019
Lung nodules
Chronic lower back pain
Daily alcohol use
Cataract surgery b/l
Tubal ligation
Plan
Acute hypoxemia and hypercarbia now on BIPAP
ABG showing 7.13/>115, repeat improving
She is DNR/DNI
History of end stage COPD, has been discussing OP pall care per notes--FEV1 0.3L 18% (very severe)
Reviewed her inpatient and outpatient records extensively
She is symptomatic when her prednisone is weaned below 20mg. Follows with Dr Julio in the office.
She has been recommended to seek transplant evaluation at another center but never followed through.
Recurrent AECOPD noted, last admission 10/09/24, 09/20/24, 08/28/24
Prior admissions in past years: 10/04/21, 09/10/19
She was aware on last admission that her COPD was end stage
She is maintained on 3L NC, 97%
She was without O2 at home, presumably hypoxemic for a prolonged period of time
This may grossly affect her mental status
She has been on prednisone taper following each admission, feels by 20mg prednisone her symptoms are returning
Place back on IV steroids
This is another poor prognostic sign
Chest x-ray without acute infection but there is significant over distention on the L into R space with shift of mediastinum
CT showing negative for acute PE, there is small L basilar infiltrate
Would be reasonable to cover with abx, possible aspiration given MS change vs HCAP (recent admissions)
MRSA screen
Unasyn IV (if MRSA neg)
She drinks 2 glasses of wine per night
Seizure possible, given ativan
Would hold off, if there is another witnessed event, can obtain EEG and keppra load
Neuro eval if needed
Observation
Overall prognosis is very poor in this patient
She is already notably DNR/DNI
was notified and en route to hospital
I have discussed meed for [facility] discussion with care team on his arrival
We will follow
Diagnostic Data
Chest X-Ray: 10/06/24- Hyperinflation, consistent with COPD. Previous aortic valve replacement. No pneumothorax. No radiographically demonstrable pleural effusion.
09/14/24- Emphysematous changes with bibasilar infiltrates, favored to pneumonia and possibly viral/atypical.
CT Chest 10/31/24- There is no pulmonary embolism. There is chronic obstructive pulmonary disease with extensive emphysematous changes. There is superimposed parenchymal air space disease at the left lung base consistent with moderate left basilar
pneumonia.
CT Scan: CHEST 09/23/20- Progressed probable focal consolidation and pneumonia in the right upper lobe. Underlying mass not completely excluded. Stable and improved bilateral spiculated and calcified pulmonary nodules as described above. Stable severe
emphysematous disease. Stable tiny pericardial effusion versus pericardial thickening.
Echo: 1/20/25- Normal left ventricular chamber size. Normal left ventricular systolic function. Normal regional wall motion. Mild concentric left ventricular hypertrophy. Left ventricular ejection fraction is 60-65% by visual estimate. Stage I
diastolic dysfunction suggestive of abnormal relaxation.
Thickened mitral valve leaflets. Dense mitral annular calcification. Restricted leaflet motion. Mild to moderate mitral stenosis. Mitral valve area by pressure halftime is calculated at 2.3 cm2. Peak/mean gradients across the mitral valve are
26/10 mmHg respectively. Trace mitral regurgitation.
Indexed LA volume is mildly abnormal (35-41 mL/m2). 23 mm Ventura Jonna transcatheter aortic valve replacement. Peak/mean gradients across the aortic valve are 27/15 mmHg respectively. Trace aortic regurgitation is seen. Tricuspid valve opens
normally. Mild tricuspid regurgitation. Estimated pulmonary artery pressure of 44 mmHg assuming a right atrial pressure of 3 mmHg. Since echo April 2020, there is mild to moderate mitral stenosis. The mean pressure gradient across the TAVR has
increased from 10 mmHg to 15 mmHg
PFT's: 09/06/19- FEV1 0.59L 28%, FVC 0.63L 24%, ratio 93. post FEV1 0.39L 19% no BD response (mixed pattern, severely reduced)
Reports and relevant images were personally reviewed.
Total time spent on this consultation __78__ minutes which includes review of history, physical exam, medications, laboratory data, personal review of imaging, extensive review of outpatient records, discussion with care team and respiratory therapy.
[2024-10-31 11:30] LABS: B.E. 16.3 mmol/L; O2 Saturation % 96.6 % (94-98); PO2 74 mmHg (83-108); pH 7.37 (7.35-7.45)
[2024-10-31 11:36] LABS: HCO3 44.5 mmol/L (21-28); PCO2 77 mmHg (32-35)
--- NOTE | 2024-10-31 12:00 | PTCARENOTE ---
Pt's verified her last drink of wine was on Tuesday.
--- NOTE | 2024-10-31 12:00 | PTCARENOTE ---
Dr. Brooke notified her Moody is at the bedside for goals of care discussion. Also notified Dr. Brooke of recent ABG result. Co2 77 with BiPap.
--- NOTE | 2024-10-31 14:00 | PTCARENOTE ---
Repositioned. Mouth care performed. She immediately desaturated to 86% with profound cyanosis of her lips and nose. Family present in the room and saw the cyanosis. They were informed that this was ominous. Chad, the pt's son asked about withdrawal
of care and how soon would she received comfort medications once the decision was made. Dr. Brooke aware of this conversation and the profound cyanosis.
[2024-10-31 14:59] LABS: Troponin I 0.053 ng/ml
--- NOTE | 2024-10-31 15:55 | HOSPNOTE ---
Hospice referral received, Will follow up with family.
--- NOTE | 2024-10-31 16:03 | W.PN.HOSP.TC ---
Today's Communication/Plan
-
Goals of care
Initiate antibiotics, MRSA screen
Continue NIV
Goals of care conversation, comfort care appropriate, prognosis guarded
Assessment / Plan
Assessment / Plan
Physical Exam
General: Well Developed, Well Nourished and No Apparent Distress
HEENT: NormoCephalic, Moist mucous membranes and Atraumatic
Respiratory: Wheezes, expiratory
Cardiac: S1/S2 and Regular Rhythm; No Murmur or Rub
GI: Soft, Non Tender, Non Distended and Normal Bowel Sounds; No Organomegaly
Rectal: Deferred by Provider
Musculoskeletal: No Clubbing, No Cyanosis and No Edema
Skin: No Rash
Neuro: Nonfocal/grossly intact
#Acute Hypercapnic respiratory failure
� Secondary to #COPD exacerbation and #possible ?pneumonia although i truly suspect this is does not appear to be this
�Continue noninvasive ventilation
� Initiate antibiotics - vanc and zosyn
� Wean O2 as tolerated
� Goals of care
-DuoNebs every 6 hours
-Switch to solumedrol - change to q8h
-prognosis poor
#Acute metabolic encephalopathy
� Secondary to hypercapnia
� Continue BiPAP
# Goals of care conversation
#Leukocytosis
-monitor cbc, probably due to steroids
-monitor fever curve
# Left posterior back pain could be musculoskeletal versus secondary to COPD
-appears to be chronic and msk
-outpatient f/u
#Sinus tachycardia
- was on diltiazem, patient refusing for now unless lower dose, will attempt
Former smoker
#Alcohol use
� Drinks 2 glasses of wine per night
� Hold off on further Ativan due to worsening hypercapnia
� Monitor for another witnessed event
Aortic stenosis status post TAVR
-Continue aspirin
History of sinus tachycardia
Chronic lower back pain
History of lung nodules
History of cataract surgery
History of tubal ligation
DNR
DVT prophylaxis�heparin
Regular diet
Total time spent on today's encounter was 50 minutes which included time spent in counseling the patient/family regarding diagnosis and treatment plan as listed above, goals of care, and symptom management. Case was discussed with nursing staff,
specialists, and care coordinators/case management. All labs and imaging personally reviewed by me. Remainder the time spent in detailed review of previous records, lab data, imaging, and other medical provider documentation.
Anticipated Discharge: > 48 hours
Subjective/Interval History
-
Date of Service: October 31, 2024
[employer] today, unresponsive to sternal rub, maintaining airway
Objective Data
-
Labs:
Laboratory Results
10/31/24 10/31/24 10/31/24
07:28 08:31 08:37
WBC 17.0 H 18.1 H
Hgb 11.1 L 11.6 L
Hct 36.1 L 38.1
Plt Count 370 D 354
PT 12.8
INR 0.91
APTT 21.9 L
HCO3 45.9 H*
Sodium 136 Cancelled
Potassium 4.1 Cancelled
Chloride 90 L Cancelled
Carbon Dioxide 36 H Cancelled
BUN 15 Cancelled
Creatinine 0.5 L Cancelled
Glucose 145 H Cancelled
Calcium 9.0 Cancelled
Total Bilirubin 0.7 Cancelled
AST 31 Cancelled
ALT 27 Cancelled
Alkaline Phosphatase 99 Cancelled
10/31/24 10/31/24
09:06 11:22
WBC
Hgb
Hct
Plt Count
PT
INR
APTT
HCO3 44.5 H*
Sodium 137
Potassium 4.3
Chloride 87 L
Carbon Dioxide 38 H
BUN 17
Creatinine 0.5 L
Glucose 197 H
Calcium 8.7
Total Bilirubin 0.6
AST 30
ALT 26
Alkaline Phosphatase 96
Vital Signs:
Vital Signs
Temp Pulse Resp BP Pulse Ox
97.3 F 80 22 94/49 96
10/31/24 11:07 10/31/24 15:32 10/31/24 15:32 10/31/24 12:00 10/31/24 15:32
I&O
10/30/24 10/31/24 11/01/24
06:59 06:59 06:59
Intake Total 1819 1140 / 1140
Balance 1819 1140 / 1140
Review of Systems
-
Unable to obtain full review of systems at this time due to: Acuity
Physical Exam
-
General: No Apparent Distress
HEENT: PERRLA
Respiratory: Decreased Breath Sounds
Cardiac: Regular Rhythm and S1/S2
GI: Soft and Nontender
Musculoskeletal: No Edema
Skin: Warm and Dry; Negative Rash
Neuro: AO x 3
Psych: Other (Medically necessary lobe, does not acknowledge pain and moving hands away)
Data Reviewed
-
Diagnostic Radiology: Report Reviewed by me
Labs: Labs Reviewed by me
--- NOTE | 2024-10-31 16:29 | CM ---
Patient transferred to ICU today
Met with and family
IA Completed - obtained by
CM consult hospice eval - tt Dominique Uriostegui liaison - Referral entered in [facility]
Lives with in a mod rancher home, 5 steps to bedroom, 4 steps to enter home
PLOF: Independent, not using AD
DME: Walker, shower chair, home 02 3L, nebulizer, in process of getting a wheelchair
current with [facility], denies rehab
PCP: Trenton Lock
Pharmacy: [address], [place]
PLAN: hospice to eval
--- NOTE | 2024-10-31 16:50 | PHA.VAN.IN ---
Assessment
- Assessment
Renal Function: Appears similar to baseline
Concomitant Antimicrobials: aztreonam
AUC Dosing Plan
- Dosing Variables
Dosing Weight (kg): 57.4
Dosing CrCl (ml/min): 63
Vd coefficient (L/kg): 0.7
- Empiric Dosing
Initial / Loading Dose: vanc 1500mg
Maintenance Regimen: vanc 1000mg Q24H
Estimated AUC (mcg*h/mL): 451
Estimated Peak (mcg*h/mL): 33.5
Estimated Trough (mcg/ml): 9.1
Estimated Half Life (H): 12.2
- Monitoring
No levels ordered at this time: consider levels in next few days
Pharmacokinetics Vancomycin I
- -
Patient Age: 69
Patient Sex: Female
Vancomycin Day #: 1
Indication: Pulmonary/Respiratory
Requesting Provider: Dr. Brooke
Pertinent Antimicrobial Allergies:
penicillin - anaphylaxis
Height / Weight:
Height 5 ft
Actual Weight 57.4 kg
Pertinent Past Medical History: COPD on chronic O2
- Vital Signs / Lab Results
Temp Pulse Resp BP Pulse Ox
98.6 F 80 22 94/49 96
10/31/24 16:21 10/31/24 15:32 10/31/24 15:32 10/31/24 12:00 10/31/24 15:32
Lab Results - Hematology
10/29/24 10/30/24 10/31/24
10:40 07:30 07:28
WBC 6.8 12.1 H 17.0 H
10/31/24
08:31
WBC 18.1 H
Lab Results - Chemistry
10/29/24 10/30/24 10/30/24
10:40 07:30 10:06
BUN 16 Cancelled 16
Creatinine 0.4 L Cancelled 0.4 L
Estimated Creat Clear 63 Cancelled 63
Albumin
10/31/24 10/31/24 10/31/24
07:28 08:31 09:06
BUN 15 Cancelled 17
Creatinine 0.5 L Cancelled 0.5 L
Estimated Creat Clear 63 Cancelled 63
Albumin 4.4 Cancelled 4.1
10/31/24
08:31
Lactic Acid 1.3
[2024-10-31] MEDS: VANCOCIN 530 MG IV (17:18)
--- NOTE | 2024-10-31 18:20 | PTCARENOTE ---
Pt's son Sunny just arrived. They are aware orders are in place for when and If they are ready to transition to comfort care. They verbalized their understanding.
--- NOTE | 2024-10-31 18:35 | PTCARENOTE ---
Pt's son and her Moody verbalized they are ready to transition to comfort. Morphine & Lorazepam administered as ordered. BiPap will remain until pt comfortable and relaxed.
[2024-10-31] MEDS: MORPHINE SULFATE 1 MG IV ×4 (18:43→22:07)
[2024-10-31] MEDS: ATIVAN 1 MG IV ×2 (18:46→22:07)
[2024-10-31] MEDS: NSS (PRESERVATIVE FREE) 0.5 ML IV (18:46)
--- NOTE | 2024-10-31 19:12 | PTCARENOTE ---
[facility] notified of withdrawal of care. [facility] scheduling representative, Beverly Clark, will have another scheduling representative call back for more information.
--- NOTE | 2024-10-31 19:16 | PTCARENOTE ---
Per [facility] auto claim representative Jeannie Suárez, call back with cardiac time of .
--- NOTE | 2024-10-31 21:00 | PTCARENOTE ---
rec'd patient on comfort measures, DNR code status. pt transitioned from bipap to 6L NC. PRN ativan and morphine ordered. pt repositioned, family in room and updated. care ongoing.
[2024-11-01] MEDS: MORPHINE SULFATE 1 MG IV ×3 (00:18→04:05)
[2024-11-01] MEDS: ATIVAN 1 MG IV ×2 (00:18→02:59)
--- NOTE | 2024-11-01 03:24 | PTCARENOTE ---
report given to vazquez hernandez transferred to [id number]
[2024-11-01 03:33] VITALS: BP 113/44
--- NOTE | 2024-11-01 04:26 | W.PN.UPDATE ---
Update Note
Progress Note Update
Reported by the nursing staff that the patient still uncomfortable on PRN morphine. Discussed the option of morphine drip with the family at bedside. Morphine drip started as discussed with the family.
[2024-11-01] MEDS: MORPHINE 100 IV (04:39)
[2024-11-01] MEDS: ROBINUL 0.2 MG IV (04:45)
[2024-11-01] MEDS: MORPHINE SULFATE 2 MG IV ×6 (04:50→12:17)
[2024-11-01 07:24] VITALS: BP 121/59
--- NOTE | 2024-11-01 09:15 | W.PN.PUL3 ---
Today's Communication / Plan
-
comfort measures, on morphine
reviewed with son at bedside, cm aware of needs of family
all questions answered
we will sign off at this time, please call with questions
Assessment
-
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 Had associated malaise,
mild productive cough, swollen glands in her neck, swelling in her right foot, pain in her left back for the past 3 days. 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
possibly hypoxemic at home. Admitted 10/28/24 for presumed AECOPD, her last admission for this was on 10/09/24. Became acutely unresponsive 10/31/24, had rapid response called. ABG obtained showing pH 7.13-CO2 >115. Given ativan x 1 for presumed
seizure with witnessed myoclonic jerks. She is transferred to IMU for continuous BiPAP. WE are consulted for eval 10/31/24.
Acute on chronic hypoxic and hypercarbic respiratory failure on c BIPAP
Obtundation due to CO2
Possible seizure, given Ativan x 1
Daily ETOH use, 1 glass of wine/nightly, possible w/d
AECOPD
Acute on chronic SOB
L basilar infilrate, HCAP vs aspiration
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
Very severe COPD-Gold stage IV-FEV1 0.3L 18%
Follows Dr Julio
On chronic O2 use, Maintained on chronic prednisone 20mg daily
100 year pack smoking history, ongoing
Tobacco abuse, ongoing currently 18 cigarettes a day
s/p TAVR 2019
Lung nodules
Chronic lower back pain
Daily alcohol use
Cataract surgery b/l
Tubal ligation
Plan
Acute hypoxemia and hypercarbia now on BIPAP
ABG showing 7.13/>115, repeat improving
She is DNR/DNI
History of end stage COPD, has been discussing OP pall care per notes--FEV1 0.3L 18% (very severe)
Reviewed her inpatient and outpatient records extensively
She is symptomatic when her prednisone is weaned below 20mg. Follows with Dr Julio in the office.
She has been recommended to seek transplant evaluation at another center but never followed through.
Recurrent AECOPD noted, last admission 10/09/24, 09/20/24, 08/28/24
Prior admissions in past years: 10/04/21, 09/10/19
She was aware on last admission that her COPD was end stage
She is maintained on 3L NC, 97%
She was without O2 at home, presumably hypoxemic for a prolonged period of time
This may grossly affect her mental status
She has been on prednisone taper following each admission, feels by 20mg prednisone her symptoms are returning
Place back on IV steroids
This is another poor prognostic sign
Chest x-ray without acute infection but there is significant over distention on the L into R space with shift of mediastinum
CT showing negative for acute PE, there is small L basilar infiltrate
Would be reasonable to cover with abx, possible aspiration given MS change vs HCAP (recent admissions)
MRSA screen
Unasyn IV (if MRSA neg)
She drinks 2 glasses of wine per night
Seizure possible, given ativan
Would hold off, if there is another witnessed event, can obtain EEG and keppra load
Neuro eval if needed
Observation
Overall prognosis is very poor in this patient
She is already notably DNR/DNI
Family has made her comfort measures, reviewed case with son at bedside
All questions answered
CM aware for follow up steps
Diagnostic Data
Chest X-Ray: 10/06/24- Hyperinflation, consistent with COPD. Previous aortic valve replacement. No pneumothorax. No radiographically demonstrable pleural effusion.
09/14/24- Emphysematous changes with bibasilar infiltrates, favored to pneumonia and possibly viral/atypical.
CT Chest 10/31/24- There is no pulmonary embolism. There is chronic obstructive pulmonary disease with extensive emphysematous changes. There is superimposed parenchymal air space disease at the left lung base consistent with moderate left basilar
pneumonia.
CT Scan: CHEST 09/23/20- Progressed probable focal consolidation and pneumonia in the right upper lobe. Underlying mass not completely excluded. Stable and improved bilateral spiculated and calcified pulmonary nodules as described above. Stable severe
emphysematous disease. Stable tiny pericardial effusion versus pericardial thickening.
Echo: 10/08/24- Normal left ventricular chamber size. Normal left ventricular systolic function. Normal regional wall motion. Mild concentric left ventricular hypertrophy. Left ventricular ejection fraction is 60-65% by visual estimate. Stage I
diastolic dysfunction suggestive of abnormal relaxation.
Thickened mitral valve leaflets. Dense mitral annular calcification. Restricted leaflet motion. Mild to moderate mitral stenosis. Mitral valve area by pressure halftime is calculated at 2.3 cm2. Peak/mean gradients across the mitral valve are
26/10 mmHg respectively. Trace mitral regurgitation.
Indexed LA volume is mildly abnormal (35-41 mL/m2). 23 mm Ventura Jonna transcatheter aortic valve replacement. Peak/mean gradients across the aortic valve are 27/15 mmHg respectively. Trace aortic regurgitation is seen. Tricuspid valve opens
normally. Mild tricuspid regurgitation. Estimated pulmonary artery pressure of 44 mmHg assuming a right atrial pressure of 3 mmHg. Since echo April 2020, there is mild to moderate mitral stenosis. The mean pressure gradient across the TAVR has
increased from 10 mmHg to 15 mmHg
PFT's: 09/06/19- FEV1 0.59L 28%, FVC 0.63L 24%, ratio 93. post FEV1 0.39L 19% no BD response (mixed pattern, severely reduced)
Reports and relevant images were personally reviewed.
Total time spent on this encounter __35__ minutes which includes review of history, physical exam, medications, laboratory data, personal review of imaging, extensive review of outpatient records, discussion with care team and respiratory therapy.
Subjective Data
-
Date of Service:
Date of Service: November 01, 2024
Chief Complaint: Pulmonary Follow Up
Subjective:
On morphine gtt, son at bedside
Off PAP
Objective Data
Data Reviewed
Vital Signs / I&O / Oxygen:
Vital Signs
Temp Pulse Resp BP Pulse Ox
97.2 F 109 17 121/59 89
11/01/24 07:24 11/01/24 07:24 11/01/24 07:24 11/01/24 07:24 11/01/24 07:24
Intake and Output
10/31/24 11/01/24 11/02/24
06:59 06:59 06:59
Intake Total 1140 / 1140 353 / 353
Output Total 550 / 550
Balance 1140 / 1140 -197 / -197
SaO2 89
Nasal Cannula flow liters per 1
minute
Physical Exam
General: Comfortable and Other (NAD)
HEENT: Normocephalic, Anicteric and Moist Mucous Membranes
Cardiovascular: S1-S2 and Regular Rhythm
Respiratory: Non-Labored Respirations
GI: Soft and Non Distended
Neurology: Unresponsive
Skin: Warm and Dry
Labs/Micro/Reports
Lab Data
11/01/24 06:00
11/01/24 06:00
Laboratory Results
10/31/24
11:22
pH 7.37
pCO2 77 H*
pO2 74 L
HCO3 44.5 H*
O2 Delivery Level
--- NOTE | 2024-11-01 11:40 | HOSPNOTE ---
Hospice will follow patient and support family. Patient appears to be comfortable at this time.
--- NOTE | 2024-11-01 12:30 | CM ---
Reviewed the chart notes and spoke with the patient's spouse and step son. Discussed arrangements. Patient's spouse has two close contacts with area directors and will reach out to them once the patient has passed. CM continues to
be available to patient/family.
Plan: Comfort care continues.
--- NOTE | 2024-11-01 13:20 | W.PN.DEATH ---
Pronouncement of
-
Called to see patient to pronounce.
No spontaneous heart tones or respirations noted.
Patient not responsive to verbal stimuli.
Patient is pronounced .
Time of : 12:27
Date of : 11/01/24
--- NOTE | 2024-11-01 13:22 | W.PN.HOSP.TC ---
Addendum entered and electronically signed by Wale Brooke MD 11/04/24 13:52:
Chronic hypoxic respiratory failure
Hypokalemia
Addendum entered and electronically signed by Wale Brooke MD 11/01/24 17:24:
[id number]
Original Note:
Today's Communication/Plan
-
comfort care, today; condolences were given
Assessment / Plan
Assessment / Plan
Physical Exam
General:
HEENT: no breath sounds
Cardiac: silent
GI: no Bowel Sounds
Neuro: pupils non reactive
#Acute Hypercapnic respiratory failure
� Secondary to #COPD exacerbation and #possible ?pneumonia although i truly suspect this is does not appear to be this
�Continue noninvasive ventilation
� Initiate antibiotics - vanc and zosyn
� Wean O2 as tolerated
� Goals of care
-DuoNebs every 6 hours
-Switch to solumedrol - change to q8h
-prognosis poor -- switched to comfort care 10/31
#Acute metabolic encephalopathy
� Secondary to hypercapnia
� Continue BiPAP
# Goals of care conversation
#Leukocytosis
-monitor cbc, probably due to steroids
-monitor fever curve
# Left posterior back pain could be musculoskeletal versus secondary to COPD
-appears to be chronic and msk
-outpatient f/u
#Sinus tachycardia
- was on diltiazem, patient refusing for now unless lower dose, will attempt
Former smoker
#Alcohol use
� Drinks 2 glasses of wine per night
� Hold off on further Ativan due to worsening hypercapnia
� Monitor for another witnessed event
Aortic stenosis status post TAVR
-Continue aspirin
History of sinus tachycardia
Chronic lower back pain
History of lung nodules
History of cataract surgery
History of tubal ligation
DNR
DVT prophylaxis�heparin
Regular diet
COmfort Care
Patient 08/31 at 12:27 PM; Condolences were given.
Anticipated Discharge: Today
Subjective/Interval History
-
Date of Service: November 01, 2024
morphine ggt - comfortable
Objective Data
-
Labs:
Laboratory Results
11/01/24
06:00
WBC Cancelled
Hgb Cancelled
Hct Cancelled
Plt Count Cancelled
Sodium Cancelled
Potassium Cancelled
Chloride Cancelled
Carbon Dioxide Cancelled
BUN Cancelled
Creatinine Cancelled
Glucose Cancelled
Calcium Cancelled
Total Bilirubin Cancelled
AST Cancelled
ALT Cancelled
Alkaline Phosphatase Cancelled
Vital Signs:
Vital Signs
Temp Pulse Resp BP Pulse Ox
97.2 F 109 17 121/59 89
11/01/24 07:24 11/01/24 07:24 11/01/24 07:24 11/01/24 07:24 11/01/24 07:24
I&O
10/31/24 11/01/24 11/02/24
06:59 06:59 06:59
Intake Total 1140 / 1140 353 / 353
Output Total 550 / 550
Balance 1140 / 1140 -197 / -197
Review of Systems
-
History Source: Patient
All other systems: Not reviewed unless documented
Physical Exam
-
General: No Apparent Distress
HEENT: PERRLA
Respiratory: Decreased Breath Sounds
Cardiac: Regular Rhythm and S1/S2
GI: Soft and Nontender
Musculoskeletal: No Edema
Skin: Warm and Dry; Negative Rash
Neuro: AO x 3
Psych: Other (Medically necessary lobe, does not acknowledge pain and moving hands away)
Data Reviewed
-
Diagnostic Radiology: Report Reviewed by me
Labs: Labs Reviewed by me
--- NOTE | 2024-11-01 13:26 | W.DS.TRANS ---
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
-
Discharge Instructions:
Instructions:
Stand-Alone Forms:
Changes to Home Medications: No
Discharge Medications:
DC Medications w/original date entered in [facility]
cetirizine 10 mg tablet (Zyrtec) 10 mg PO DAILY Allergies 08/24/24
nicotine (polacrilex) 2 mg buccal lozenge 2 mg buccal DAILYPRN PRN nicotine cravings 08/26/24
fluticasone furoate 200 mcg-vilanterol 25 mcg/dose inhalation powder (Breo Ellipta) 1 inh inhalation R DAILY Lung/Breathing Issues 09/14/24
sodium chloride 5 % eye ointment (Cameron 128) 1 applic ophthalmic (eye) BID PRN dry eyes 10/28/24
aspirin 81 mg chewable tablet 81 mg PO DAILY Blood Clot Prevention/Tx 10/30/24
ipratropium 0.5 mg-albuterol 3 mg (2.5 mg base)/3 mL nebulization soln 3 ml inhalation QIDPRN PRN wheezing/SOB 10/30/24
levalbuterol tartrate 45 mcg/actuation aerosol inhaler 1 inh inhalation Q6HPRN PRN wheezing 10/30/24
multivitamin with minerals-folic acid 200 mcg chewable tablet (Multivitamin Gummies) 1 tab PO DAILY Supplement 10/30/24
prednisone 10 mg tablet 30 mg PO DAILY Anti-Inflammatory 10/30/24
Home Medication Changes
na
Pending Results: Yes
== END 2024-11-01 12:27 | disposition expired | DRG 190 ==
LOC: 2 NORTH 16:09
PROVIDERS: ADMITTING PHYSICIAN Hospitalist; ATTENDING PHYSICIAN Internal Medicine; CONSULT PHYSICIAN Internal Medicine; EMERGENCY PHYSICIAN Student in an Organized Health Care Education/Training Program; FAMILY PHYSICIAN Family Medicine
PROC: 5A09357 Assistance with Respiratory Ventilation, Less than 24 Consecutive Hours, Continuous Positive Airway Pressure (ICD-10-PCS; 2024-10-30)
DX: J44.1 Chronic obstructive pulmonary disease with (acute) exacerbation (principal); G93.41 Metabolic encephalopathy; J96.02 Acute respiratory failure with hypercapnia; J18.9 Pneumonia, unspecified organism; J96.11 Chronic respiratory failure with hypoxia; J44.0 Chronic obstructive pulmonary disease with (acute) lower respiratory infection; Z66 Do not resuscitate; Z51.5 Encounter for palliative care; R00.0 Tachycardia, unspecified; R56.9 Unspecified convulsions; G25.3 Myoclonus; G89.29 Other chronic pain; E87.6 Hypokalemia; F17.210 Nicotine dependence, cigarettes, uncomplicated; Z88.0 Allergy status to penicillin; Z99.81 Dependence on supplemental oxygen; Z95.2 Presence of prosthetic heart valve; Z79.82 Long term (current) use of aspirin; Z79.52 Long term (current) use of systemic steroids; Z79.899 Other long term (current) drug therapy; Z11.52 Encounter for screening for COVID-19
CPT/HCPCS: 36600; 70450; 71045; 71275; 80048; 80053; 82805; 82962; 83605; 84484; 85025; 85027; 85379; 85610; 85730; 87070; 87502; 87811; 93005; 94640; 94660; 96374; 99291; Q9967